=== PATIENT | female | born 1985 | race Caucasian/White ===

== ENCOUNTER 2018-02-08 09:57 | Day surgery (SDC) | payer MEDICARE, MEDICAID, SELFPAY ==
[2018-02-08 10:17] VITALS: BP 106/64; PULSE 84; RESP 20; TEMP 36.4; O2SAT 100; BMI 32.3
--- NOTE | 2018-02-08 12:06 | PCM.DC ---
You will use the following diet at home:: No restrictions Your food should be the consistency of: Regular Discharge Activity: Return to Normal Activity Call your doctor if you observe: Using more than one pad per hour, Uncontrolled pain Allergies/Adverse Reactions: Allergies No Known Allergies Allergy (Verified 02/05/18 12:02) Medications to take at Discharge Carbamazepine [Carbamazepine Xr] 400 mg PO BID 11/18/14 Gabapentin [Neurontin] 400 mg PO BIDCM 11/18/14 Lorazepam [Ativan] 1 mg PO BID 11/18/14 MedroxyPROGESTERone [Depo-Provera] 150 mg IM .[id number] 11/18/14 Loratadine [Allergy Relief] 10 mg PO DAILY 02/05/18 Lorazepam [Ativan] 0.5 mg PO 1600 02/05/18 Primary Care Physician: Jun Keane MD [Primary Care Provider] -
--- NOTE | 2018-02-08 12:07 | PCM.OP.BLANK ---
Operative Report Date of Procedure: 02/08/18 surgeon: dr naina yepez assistant public defender: nba Christianson MS3 Pre op diagnosis: dysmenorrhea, severe mental retardation Post op diagnosis: same procedure performed: IUD insertion, Exam under anesthesia, Pap Complications: none anesthesia: inhaled anesthesia, LMA EBL: minimal implantable devices: IUD- MIRENA Operative note: After consent was obtained by the legal guardian as the patient has severe mental impairment. Patient is unable to communicate verbally. She was brought to the operating room she was given inhaled anesthetic to relaxer she was then transferred to the operating room table. She was placed in supine position. [facility]aced [facility]. Exam Under anesthesia revealed an anteverted uterus approximately 7 weeks size. No adnexal masses. Carr retractor was placed in the posterior fornix vagina. At this time the tenaculum was used to grasp anterior lip the cervix.Cervix appeared to be normal. Pap smear was collected. Betadine used to clean cervix and vagina. Uterus was sounded to 7 cm. The Mirena IUD was then placed without difficulty. The IUD strings were cut to approximately 1.5 cm in the cervical loss. Tenaculum was removed good hemostasis was appreciated. Retractor was removed. Vaginal sweep was performed was negative. We will follow-up as needed in the office. pt transferred to PACU in stable condition.
--- NOTE | 2018-02-08 12:13 | OP.PCM_ITS ---
Operative Report Date of Procedure: 02/08/18 surgeon: dr naina yepez grants assistant: nba Christianson MS3 Pre op diagnosis: dysmenorrhea, severe mental retardation Post op diagnosis: same procedure performed: IUD insertion, Exam under anesthesia, Pap Complications: none anesthesia: inhaled anesthesia, LMA EBL: minimal implantable devices: IUD- MIRENA Operative note: After consent was obtained by the legal guardian as the patient has severe mental impairment. Patient is unable to communicate verbally. She was brought to the operating room she was given inhaled anesthetic to relaxer she was then transferred to the operating room table. She was placed in supine position. [facility]aced in [facility] stirrups. Exam Under anesthesia revealed an anteverted uterus approximately 7 weeks size. No adnexal masses. Carr retractor was placed in the posterior fornix vagina. At this time the tenaculum was used to grasp anterior lip the cervix.Cervix appeared to be normal. Pap smear was collected. Betadine used to clean cervix and vagina. Uterus was sounded to 7 cm. The Mirena IUD was then placed without difficulty. The IUD strings were cut to approximately 1.5 cm in the cervical loss. Tenaculum was removed good hemostasis was appreciated. Retractor was removed. Vaginal sweep was performed was negative. We will follow-up as needed in the office. pt transferred to PACU in stable condition.
[2018-02-08 12:23] VITALS: BP 106/64; BP 136/80; PULSE 88; RESP 16; TEMP 36.4; O2SAT 96
[2018-02-08 12:30] VITALS: BP 106/64; BP 135/88; PULSE 93; RESP 16; O2SAT 96
[2018-02-08 12:41] VITALS: BP 106/64; BP 135/79; PULSE 92; RESP 16; TEMP 36.4; O2SAT 96
[2018-02-08 13:00] VITALS: BP 106/64
== END 2018-02-08 13:14 | disposition home or self-care (01) ==
LOC: SDC 09:58 → AC 10:01
PROVIDERS: Family Provider Family Medicine; PCP Family Medicine; Visit Provider Obstetrics & Gynecology
PROC: (CPT 58120; principal; 2018-02-08 11:15)
DX: N94.6 Dysmenorrhea, unspecified (principal); F72 Severe intellectual disabilities; G40.909 Epilepsy, unspecified, not intractable, without status epilepticus; Z79.899 Other long term (current) drug therapy
CPT/HCPCS: 00940; 57410; 58300; J7120

== ENCOUNTER 2019-11-17 06:39 | Day surgery (SDC) | payer MEDICARE, MEDICAID, SELFPAY ==
--- NOTE | 2019-11-14 11:46 | HP.PCM_ITS ---
History and Physical Date of Admission: 11/14/19 Emily Valentin Physician RESIDENTIAL CARPET INSTALLER H&P Signed Encounter Date: 10/24/2019 Expand All Collapse All Hide copied text Jamie for details Nerissa Diallo is a 34 year old female who presents for IUD check. Aides are unsure if IUD was accidentally removed- saw strings the other week but then have not seen them. Pt nonverbal and will not allow for exams. ? PAST MEDICAL HISTORY PAST MEDICAL HISTORY Diagnosis Date ? Esotropia, unspecified ? ? right eye ? Microcephalus (HCC) ? ? Other kyphoscoliosis and scoliosis ? ? Unqualified visual loss, both eyes ? ? 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 Unspecified epilepsy without mention of intractable epilepsy ? ? sees Dr. Euceda ? Unspecified intellectual disabilities ? ? profound - since ? PAST SURGICAL HISTORY PAST SURGICAL HISTORY Procedure Laterality Date ? MIRENA N/A 2015 ? FAMILY HISTORY FAMILY HISTORY Problem Relation Age of Onset ? other (unsure) Other ? ? SOCIAL HISTORY Social History ? Tobacco Use ? Smoking status: Never Smoker ? Smokeless tobacco: Never Used Substance Use Topics ? Alcohol use: No ? Drug use: No ? CURRENT MEDICATIONS Current Outpatient Medications Medication Sig ? loratadine (CLARITIN) 10 mg tablet Take 1 tablet by mouth once daily. ? ibuprofen (MOTRIN) 600 mg tablet Take 1 tablet by mouth every 4 hours as needed for Pain (up to 5 doses/ day (3000mg total)). ? carBAMazepine XR (TEGRETOL XR) 200 mg 12 hr tablet TAKE 2 TABLETS (400MG) BY MOUTH TWICE DAILY ? Diaper,Brief, Adult,Disposable (DEPEND UNDERWEAR FOR WOMEN LRG) misc Change 4 times a day as needed. ? gabapentin (NEURONTIN) 400 mg capsule Take 1 capsule by mouth twice daily. ? Wheel Chair gali Standard Light Manual wheelchair with seatbelt. . (M41.20) IDIOPATHIC SCOLIOSIS (primary encounter diagnosis) (G40.909) Epilepsy, unspecified, not intractable, without status epilepticus (HCC) (Q02) MICROCEPHALUS (R26.89) Impaired gait and mobility ? Skin protection seat cushion (e2622) Positioning wheelchair back cushion (e2613) ? Requires wheelchair for ambulating over 50 feet, and as needed for safety concerns when out of the home. ? LORazepam (ATIVAN) 1 mg tablet Take 1 tablet by mouth twice daily for 60 days. ? LORazepam (ATIVAN) 0.5 mg tab Take 1 tablet by mouth once daily for 60 days. At 5pm daily ? mometasone (ELOCON) 0.1 % cream Apply 1 application to affected area once daily. (Patient not taking: Reported on 10/24/2019 ) ? No current facility-administered medications for this visit. ? Allergies As of Date: 10/24/2019 (No Known Allergies) Fully Assessed 10/24/2019 ? ? REVIEW OF SYSTEMS Abdomen: no pain.. Expanded ROS: GENERAL: Negative for fever Allergies and current medication updated:Yes ? EXAM: BP 120/74 Wt 0 lb (0.0kg) ? GENERAL: female non verbal and uncooperative HEENT: Normocephalic and atraumatic DERMATOLOGY: Normal, without lesions and non-icteric NEURO: unable to assess EXTREMITIES: normal ? ASSESSMENT AND PLAN: Encounter Diagnosis ? ? ICD-10-CM ? 1. Surveillance of previously prescribed intrauterine contraceptive device Z30.431 ? ? 2. Discussed will perform EUA- with checking for IUD placement with ultrasound guidance if needed. If IUD was expelled Nexplanon will be placed. If IUD in place will not remove and procedure will be complete ? 3. Guardian to sign consent at later date. ? Emily Soliz MD ?
[2019-11-17] VITALS (7 sets, daily range): BP systolic 111–133; BP diastolic 48–82; PULSE 80–92; RESP 16–18; TEMP 36.5–36.6; O2SAT 93–96; BMI 33.0
[2019-11-17] MEDS: Lactated Ringers 1,000 ML 100 ML IV (07:24)
[2019-11-17 07:28] LABS: Internal QC Validated? YES +Cl - CLEAR BKGD; Pregnancy, Serum, hCG Quali. NEGATIVE Negative
[2019-11-17] MEDS: Etonogestrel 68 MG IMPLANT SQ (08:38)
--- NOTE | 2019-11-17 09:02 | DCINST_ITS ---
You will use the following diet at home:: No restrictions Your food should be the consistency of: Regular Discharge Activity: Return to Normal Activity Additional Dressing/Incision Instructions:: remove large outer dressing after 24 hours. small dressing can stay on for 72hrs. Brusing can be normal. Allergies/Adverse Reactions: Allergies No Known Allergies Allergy (Verified 11/17/19 07:00) Medications to take at Discharge Carbamazepine [Carbamazepine Xr] 400 mg PO BID 11/18/14 Gabapentin [Neurontin] 400 mg PO BIDCM 11/18/14 Lorazepam [Ativan] 1 mg PO BID 11/18/14 Loratadine [Allergy Relief] 10 mg PO DAILY 02/05/18 Lorazepam [Ativan] 0.5 mg PO 1600 02/05/18 Primary Care Physician: Roland Johnson MD [Primary Care Provider] - Test Results: Test results from this visit will be discussed in further detail at your follow- up appointment, if applicable. Please Follow Up With: Emily Soliz MD When: as needed. will need Nexplanon replaced in 3 yrs
--- NOTE | 2019-11-17 09:04 | OP.PCM_ITS ---
Report of Operation Date of Procedure: 11/17/19 Pre-Operative Diagnosis: IUD CHECK up , possible Nexplanon placement, severe mental disability Post-Operative Diagnosis: same, IUD not in placed, nexplanon placed Surgery/Procedure Performed:: EUA, Nexplanon placement Description of Surgical Findings:: IUD strings not visualized on exam, TV and TA ultrasound performed- no sign of IUD appreciated. Type of Anesthesia:: MAC Special Medications: marcaine Specimen's removed: none Drains: none Estimated Blood Loss (mL): none Description of Procedure: Name under anesthesia was performed. IUD strings were not visualized at the cervical Os. Uterus mobile. Attempted transvaginal and transabdominal ultrasound were performed difficulty with the machine however there was no evidence of a retained IUD. Decision at this time was to place the Nexplanon implant. The patient's right arm was prepped with Betadine Marcaine was injected and the Nexplanon was placed without difficulty. Sterile dressing was applied and pressure dressing applied. Procedure was deemed complete successful at this time. Patient transferred back to the recovery room in stable condition. Discussed with the childcare attendant and [facility] the [facility] that the patient will need the Nexplanon replaced in 3 years. Discussed that abnormal uterine bleeding can be a normal side effect of the Nexplanon. Grafts/Implants Used: nexplanon - Complications none - Admit VTE Documentation VTE Pharm Prophylaxis ordered?: No
== END 2019-11-17 09:35 | disposition home or self-care (01) ==
LOC: SDC 06:41 → AC 06:44
PROVIDERS: Anesthesiology; Family Provider Family Medicine; PCP Family Medicine; Referring Provider Obstetrics & Gynecology; Visit Provider Obstetrics & Gynecology
PROC: (CPT 58120; principal; 2019-11-17 08:10)
DX: T83.32XA Displacement of intrauterine contraceptive device, initial encounter (principal); Z30.8 Encounter for other contraceptive management; Z30.431 Encounter for routine checking of intrauterine contraceptive device; X58.XXXA Exposure to other specified factors, initial encounter; Y93.9 Activity, unspecified; Y92.9 Unspecified place or not applicable; Y99.9 Unspecified external cause status; G40.909 Epilepsy, unspecified, not intractable, without status epilepticus; H54.3 Unqualified visual loss, both eyes; H47.611 Cortical blindness, right side of brain; H50.00 Unspecified esotropia; Q02 Microcephaly; F79 Unspecified intellectual disabilities; F41.9 Anxiety disorder, unspecified; Z79.899 Other long term (current) drug therapy
CPT/HCPCS: 11981; 57410; 84703; J7120; J2405

== ENCOUNTER 2021-09-09 17:29 | Emergency (ER) | payer MEDICARE, MEDICAID, SELFPAY ==
[2021-09-09 17:30] VITALS: TEMP 36.6; BMI 32.7
[2021-09-09] MEDS: Ziprasidone IM 20 MG/ML VIAL IM (17:39)
--- NOTE | 2021-09-09 17:50 | CM.ED ---
SOCIAL WORK Referral Source: Dr. Abreu Reason for Consult: Discharge planning/MH evaluation Patient presents by regional sales representative from [facility] on [address] Worker states patient with increased aggression and combative behavior. Patient with profound MR, impulse control disorder, seizure disorder, scoliosis, blindness. Worker reports patient has been agitated since 3am and nothing they have done has helped. Patient is non verbal. Patient has guardian, Margarita Manning [phone]. Work up to be completed. Joon Jack, EMPLOYEE RELATIONS REPRESENTATIVE, HOT MILL OBSERVER
[2021-09-09] MEDS: LORazepam 2 MG/ML Syringe IM (18:20)
--- NOTE | 2021-09-09 18:29 | ED.RN ---
PT REMAINS AGITATED. SECOND DOSE OF MEDICATION GIVEN. PT REMAINS SITTING UP. UNABLE TO DO VITAL SIGNS AT THIS TIME. ATTEMPTING TO PLAY MUSIC
[2021-09-09 18:40] VITALS: PULSE 96; RESP 16; O2SAT 96
--- NOTE | 2021-09-09 18:50 | EX.ED.VIS.PS ---
HPI HPI - Psych History of Present Illness Chief Complaint: Mental Health Informant: other Onset/Context/Timing Onset: Today Context: Gradual Onset Timing: Continuous Associated Symptoms Associated Symptoms - Psych: Positive for Agitated, Angry, Hostile and Threatening Narrative Narrative: Patient presents with agitation and combative behavior that became worse today. Caregiver states it has been getting progressively worse throughout the day. Caregiver reports the patient has had similar episodes in the past. Patient does not answer questions and is a poor historian. Patient has been yelling since she arrived in the emergency department. Caregiver states that they removed things from her room since she lives with 4 other people in her room. Caregiver states she has been throwing things and they are concerned about the safety of the other people in the half-way. [facility] Medical History Blind Profound mental handicap Seizures Home Medications carbamazepine 400 mg PO BID 11/18/14 [History Last Taken Unknown] gabapentin 400 mg PO BIDCM 11/18/14 [History Last Taken Unknown] lorazepam 1 mg PO BID 11/18/14 [History Last Taken Unknown] loratadine [Allergy Relief] 10 mg PO DAILY 02/05/18 [History Last Taken Unknown] lorazepam 0.5 mg PO 1600 02/05/18 [History Last Taken Unknown] Allergy/AdvReac Type Severity Reaction Status Date / Time No Known Allergies Allergy Verified 09/09/21 17:44 Family History unable to obtain Social History Smoking Status: Never smoker ROS ROS ED Review of Systems ROS Unobtainable: due to mental condition EXAM Physical Exam Const Vital Signs: 09/09/21 17:30 09/09/21 18:40 09/09/21 19:02 Temperature 97.9 F Temperature Source Temporal Pulse Rate 96 Respiratory Rate 16 Blood Pressure 131/95 H Blood Pressure Mean 107 Pulse Ox 96 Oxygen Delivery Method Room Air 09/09/21 20:22 Temperature Temperature Source Pulse Rate Respiratory Rate 18 Blood Pressure Blood Pressure Mean Pulse Ox Oxygen Delivery Method Positive well nourished and well developed General Appearance ED: well developed and irritable HEENT Reports moist mucous membranes Neck supple Resp normal respiratory effort and clear to auscultation bilaterally Cardio Rate: regular rate Rhythm: regular rhythm GI non-tender Palpation: soft Neuro CN's II-XII intact bilaterally and no sensory deficits noted Sensorium / Orientation: alert Motor Exam: strength 5/5 throughout and muscle tone normal throughout Psych Attitude: agitated, aggressive and hostile Activity / Motor Behavior: restless Mood & Affect: irritable and hostile affect MDM MDM MDM Narrative Medical decision making narrative: Patient was given a dose of Geodon here. Patient was still slightly agitated after this. Patient was given a dose of Ativan here. CBC was within normal limits. Basic metabolic profile was normal. Serum alcohol level was negative. Carbamazepine level was therapeutic at 10.6. Urinalysis does not show any evidence of urinary tract infection. Serum hCG was negative. Patient is resting comfortably on reevaluation. Patient will be discharged back to the half-way. Caregiver understands and is agreeable with the plan. All questions were answered. Lab Data Labs: Laboratory Results - last 24 hr 09/09/21 09/09/21 09/09/21 19:10 19:10 19:10 WBC 10.4 RBC 4.02 L Hgb 12.9 Hct 38.0 MCV 94.5 MCH 32.1 H MCHC 33.9 RDW Std Deviation 40.5 RDW Coeff of Sotero 11.8 Plt Count 264 MPV 10.3 Immature Gran % (Auto) 0.400 Neut % (Auto) 60.1 Lymph % (Auto) 30.8 [place] % (Auto) 6.0 Eos % (Auto) 2.4 Baso % (Auto) 0.3 Absolute Neuts (auto) 6.2 Absolute Lymphs (auto) 3.20 Nucleated RBC % 0 Sodium 140 Potassium 3.7 Chloride 108 H Carbon Dioxide 27.0 Anion Gap 5 BUN 21 H Creatinine 0.92 Estim Creat Clear Calc 77.53 Est GFR (MDRD) Af Amer 90 Est GFR (MDRD) Non-Af 74 BUN/Creatinine Ratio 22.8 H Glucose 95 Calcium 8.8 Serum , Qual Urine Color Urine Clarity Urine pH Ur Specific [place] Urine Protein Urine Glucose (UA) Urine Ketones Urine Occult Blood Urine Nitrite Urine Bilirubin Urine Urobilinogen Ur Leukocyte Esterase Urine RBC Urine WBC Ur Squamous Epith Cells Urine Bacteria Urine Mucus Carbamazepine Ethyl Alcohol 6.0 09/09/21 09/09/21 09/09/21 19:10 19:10 19:30 WBC RBC Hgb Hct MCV MCH MCHC RDW Std Deviation RDW Coeff of Sotero Plt Count MPV Immature Gran % (Auto) Neut % (Auto) Lymph % (Auto) [place] % (Auto) Eos % (Auto) Baso % (Auto) Absolute Neuts (auto) Absolute Lymphs (auto) Nucleated RBC % Sodium Potassium Chloride Carbon Dioxide Anion Gap BUN Creatinine Estim Creat Clear Calc Est GFR (MDRD) Af Amer Est GFR (MDRD) Non-Af BUN/Creatinine Ratio Glucose Calcium Serum , Qual NEGATIVE Urine Color Yellow Urine Clarity Sl. Cloudy Urine pH 6.5 Ur Specific [place] 1.015 Urine Protein Negative Urine Glucose (UA) Normal Urine Ketones Negative Urine Occult Blood Negative Urine Nitrite Positive H Urine Bilirubin Negative Urine Urobilinogen Normal Ur Leukocyte Esterase 25 H Urine RBC 0 SEEN Urine WBC 0-5 SEEN Ur Squamous Epith Cells 0-5 SEEN Urine Bacteria 3+ Urine Mucus 0 SEEN Carbamazepine 10.6 Ethyl Alcohol Discharge Plan Triage Chief Complaint: Mental Health ED Provider: Lex Abreu Dx/Rx/DC Orders Clinical Impression: Agitation Prescriptions: No Action gabapentin 400 MG capsule 400 mg PO BIDCM RF: 0 carbamazepine 200 MG tablet extended release 12 hr 400 mg PO BID RF: 0 lorazepam 1 MG tablet 1 mg PO BID RF: 0 lorazepam 0.5 MG tablet 0.5 mg PO 1600 RF: 0 loratadine [Allergy Relief (loratadine)] 10 MG tablet 10 mg PO DAILY RF: 0 Primary Care Provider: Roland Johnson Referrals: Roland Johnson MD [Primary Care Provider] - 3-5 Days Disposition Disposition: Home, Self Care
--- NOTE | 2021-09-09 18:58 | ED.RN ---
LEGAL GUARDIAN MATILDA ANN [phone]
[2021-09-09 19:02] VITALS: BP 131/95
--- NOTE | 2021-09-09 19:03 | CM.ED ---
SOCIAL WORK Call to patient's guardian, Margarita Manning. Per Margarita, does not believe patient will require inpatient psych. Believes patient would benefit from follow up with PCP. This worker reviewed emergency packet brought in by worker from [facility]. It appears plan of care has not been updated since 2017. Per the plan of care, patient was to have a Haldol protocol for behaviors that have been shown in ER. Margarita states has been patient's guardian for 1 year and this is the first time she has needed to come to hospital. Margarita reports has had Zoom meetings with [facility] and will look into getting plan of care updated. Margarita states, I don't know why they were pushing for a psych evaluation? Informed patient has been medicated with Geodon and Ativan at this time and awaiting medical clearance. Discussed the above with Dr. Abreu. Still awaiting medical clearance at this time. Will follow. Joon Jack, CREDIT REVIEW MANAGER, WOOD FINISHER
[2021-09-09 19:20] LABS: Absolute Neutrophil Count 6.2 X10^3/uL (2.0-7.7); Basophil# 0.03 X10^3/uL; Basophil% 0.3 % (0-1); Eosinophil# 0.25 X10^3/uL; Eosinophils% 2.4 % (0-5); Hemoglobin 12.9 g/dL (12.0-15.0); Lymphocyte % 30.8 % (19-41); Mean Corp Hgb Conc 33.9 g/dL (32-36); Mean Corpuscular Hgb 32.1 pg (27.0-32.0); Mean Corpuscular Volume 94.5 fL (81-99); Mean Platelet Vol. 10.3 fl (6.2-12.0); Monocyte# 0.62 X10^3/uL; NRBC Flagged by Analyzer 0 % (0-5); Neutrophil # 6.24 X10^3/uL (2.7-7.7); Neutrophil % 60.1 % (47-70); Platelet Count 264 K/mm3 (150-450); RBC Distribution Width CV 11.8 % (11.6-14.6); RBC Distribution Width SD 40.5 fl (35.1-43.9); Red Blood Count 4.02 M/mm3 (4.2-5.4); White Blood Count 10.4 K/mm3 (4.4-11.0)
[2021-09-09 19:29] LABS: Internal QC Validated? YES +Cl - CLEAR BKGD; Pregnancy, Serum, hCG Quali. NEGATIVE Negative
[2021-09-09 19:33] LABS: Anion Gap 5 (5-15); BUN 21 mg/dL (7-18); BUN/Creat Ratio 22.8 RATIO (10-20); Calcium,Total 8.8 mg/dL (8.5-10.1); Chloride 108 mmol/L (98-107); Creatinine, Serum 0.92 mg/dL (0.55-1.02); EST Glomerular Filtration Rate 74 mL/min (>60); Est Glom Filt Rate - Afr Amer 90 mL/min (>60); Estimated Creatinine Clearance 77.53 ml/min; Glucose 95 mg/dL (74-106); Potassium 3.7 mmol/L (3.5-5.1); Sodium Level 140 mmol/L (136-145)
[2021-09-09 19:35] LABS: Mucous, Urine 0 SEEN /hpf (<or=2+); Red Blood Cells-Urine 0 SEEN /hpf (0-5)
[2021-09-09 19:47] LABS: Carbamazepine (Tegretol) 10.6 ug/mL (4.0-12.0)
[2021-09-09 19:56] LABS: Color, Urine Yellow (Yellow); Glucose, Dipstick Normal (Normal); Ketone-Dipstick Negative (Negative); Leukocyte Esterase-Dipstick 25 /ul (Negative); Nitrite-Dipstick Positive (Negative); Occult Blood-Urine Negative /ul (Negative); Protein-Dipstick Negative (Negative); Specific Gravity, Urine 1.015 (1.002-1.030); Urine Bilirubin Dipstick Negative (Negative); Urine Clarity Sl. Cloudy (Clear); Urine Urobilinogen Normal (Normal); Urine pH 6.5 (5.0 - 8.0)
[2021-09-09 20:06] LABS: Bacteria 3+ /hpf (None Seen); Squamous Epithelial Cells - UA 0-5 SEEN /hpf (5-10); White Blood Cells 0-5 SEEN /hpf (0-5)
[2021-09-09 20:22] VITALS: RESP 18
--- NOTE | 2021-09-09 20:30 | CM.ED ---
SOCIAL WORK Patient medically cleared and Dr. Abreu believes patient able to return [facility]. Call to patient's guardian. Guardian in agreement with return to prison and believes patient would benefit from PRN medication if agitation becomes increased again. This worker spoke with Carol-senior data warehouse architect and nurseGunjan through [facility]. Per both, unable to write for PRN medication and patient will need to follow up with PCP. Carol feels comfortable with patient returning to prison and states able to provide wheelchair transport for patient. Staff updated on the above. Plan: Return to [facility] Joon Jack MSW, HONE OPERATOR
[2021-09-09 21:23] VITALS: RESP 18
[2021-09-09 22:53] LABS: Amphetamine Urine VISTA NEGATIVE (<1000 ng/mL); Barbiturate Urine VISTA NEGATIVE (< 200 ng/mL); Benzodiazepine Urine VISTA NEGATIVE (< 200 ng/mL); Cocaine Urine VISTA NEGATIVE (< 300 ng/mL); Ecstacy Urine VISTA NEGATIVE (< 500 ng/mL); Methadone Urine VISTA NEGATIVE (< 300 ng/mL); PCP Urine VISTA NEGATIVE (< 25 ng/mL); THC Urine VISTA NEGATIVE (< 50 ng/mL); Vista UDS pH Range 6
== END 2021-09-09 21:37 | disposition home or self-care (01) ==
PROVIDERS: Emergency Provider Emergency Medicine; PCP Family Medicine
DX: R45.1 Restlessness and agitation (principal); R56.9 Unspecified convulsions; H54.7 Unspecified visual loss; Z79.899 Other long term (current) drug therapy
CPT/HCPCS: 80048; 80156; 80307; 81001; 82077; 84703; 85025; 87426; 96372; 99285; P9612; J3486

== ENCOUNTER 2023-01-16 12:06 | Observation (INO) | payer MEDICARE, MEDICAID, SELFPAY ==
--- NOTE | 2022-12-22 15:53 | HP.PCM_ITS ---
History and Physical Date of Admission: 01/16/23 HPI: The patient is a 37 year old female presenting for pre-operative visit. She is scheduled for [facility] bilateral salpingectomy, for dysmenorrhea, need for menstrual control due to hygeine issues w/ menstruation due to cognitive deficits. Procedure discussed along with risks, benefits and complications. Other alternatives discussed for management. Consent form signed? Yes. ++HIstory and ROS obtained from caregiver and chart due to patient inability to answer medical questions ? PAST MEDICAL HISTORY PAST MEDICAL HISTORY Diagnosis Date ? Esotropia, unspecified ? ? right eye ? Microcephalus (HCC) ? ? Other kyphoscoliosis and scoliosis ? ? Unqualified visual loss, both eyes ? ? 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 Unspecified epilepsy without mention of intractable epilepsy ? ? sees Dr. Euceda ? Unspecified intellectual disabilities ? ? profound - since ? ? PAST SURGICAL HISTORY PAST SURGICAL HISTORY Procedure Laterality Date ? MIRENA N/A 2015 ? NEXPLANON INSERTION Left 11/17/2019 ? Inserted at [facility] under anesthia by Dr. Valentin ? ? ? CURRENT MEDICATIONS Current Outpatient Medications Medication Sig Dispense Refill ? LORazepam (ATIVAN) 1 mg tablet Take 1 tablet by mouth twice daily for 60 days. Gets the 1 mg twice daily at 8am and 8pm. Gets 0.5mg at 4pm. 60 tablet 1 ? acetaminophen (TYLENOL EXTRA STRENGTH) 500 mg tablet Take 1 tablet by mouth twice daily. 60 tablet 11 ? naproxen (NAPROSYN) 500 mg tablet Take 1 tablet by mouth twice daily. 60 tablet 5 ? loratadine (CLARITIN) 10 mg tablet Take 1 tablet by mouth once daily. 30 tablet 5 ? polyethylene glycol 3350 (MIRALAX) 17 gram/dose powder Take 17 g by mouth once daily. 510 g 11 ? gabapentin (NEURONTIN) 400 mg capsule Take 1 capsule by mouth three times daily for 90 days. 90 capsule 2 ? carBAMazepine XR (TEGRETOL XR) 200 mg 12 hr tablet TAKE 2 TABLETS (400MG) BY MOUTH TWICE DAILY 120 tablet 0 ? etonogestrel (NEXPLANON SDRM) by SUBDERMAL route. ? ? ? Wheel Chair gali Standard Light Manual wheelchair with seatbelt. . (M41.20) IDIOPATHIC SCOLIOSIS (primary encounter diagnosis) (G40.909) Epilepsy, unspecified, not intractable, without status epilepticus (HCC) (Q02) MICROCEPHALUS (R26.89) Impaired gait and mobility ? Skin protection seat cushion (e2622) Positioning wheelchair back cushion (e2613) ? Requires wheelchair for ambulating over 50 feet, and as needed for safety concerns when out of the home. 1 Device 0 ? Diaper,Brief, Adult,Disposable (DEPEND UNDERWEAR FOR WOMEN LRG) misc Change 4 times a day as needed. 120 Each 2 ? No current facility-administered medications for this visit. ? ? ALLERGIES: Patient has no known allergies. ? PERSONAL HISTORY: SOCIAL HISTORY Social History ? Tobacco Use ? Smoking status: Never ? Smokeless tobacco: Never Substance Use Topics ? Alcohol use: No ? Drug use: No ? FAMILY HISTORY: FAMILY HISTORY FAMILY HISTORY Problem Relation Age of Onset ? other (unsure) Other ? ? ? REVIEW OF SYMPTOMS: GENERAL: denies fevers or chills ENDOCRINOLOGY: has not been on steroids Cardiology : denies palpitations or chest pain Respiratory: denies SOB or cough Hematology: denies history of prolonged bleeding or easy bruising or VTE Allergy: Denies history of personal or family history of allergy to anesthesia ? PHYSICAL EXAMINATION: ? VITALS: Last menstrual period 03/04/2011. ? GENERAL: The patient is well nourished, well hydrated in no acute distress. NECK: Supple. No lynphadenopathy, normal thyroid, no thyromegaly. LUNGS: Clear to auscultation bilaterally. no wheezes, rhonchi or rales HEART: Regular rate and rhythm, Normal heart sounds, and No murmurs or gallops ? IMPRESSION: Dysmenorrhea, need to control menses and for contraception ? PLAN: The risks/benefits/alternatives and personal involved for the planned TLH with bilateral salpingectomy adn nexplanon removal were reviewed with the patient. Her questions were answered to her satisfaction and she desires to proceed. Consent was signed. I reviewed with her postop instructions and expectations. ? ? I have reviewed and updated past medical and surgical history, medications and allergies Assessment & Plan Assessment/Plan (1) Dysmenorrhea: (2) Nexplanon removal:
[2023-01-09 16:41] LABS: Hematocrit 38.1 % (37-47); Hemoglobin 12.7 g/dL (12.0-15.0); Mean Corp Hgb Conc 33.3 g/dL (32-36); Mean Corpuscular Hgb 32.2 pg (27.0-32.0); Mean Corpuscular Volume 96.5 fL (81-99); Mean Platelet Vol. 11.4 fl (6.2-12.0); Platelet Count 299 K/mm3 (150-450); RBC Distribution Width CV 11.7 % (11.6-14.6); Red Blood Count 3.95 M/mm3 (4.2-5.4); White Blood Count 10.2 K/mm3 (4.4-11.0)
[2023-01-09 16:48] LABS: Partial Thromboplast Time 27.1 Seconds (24.1-36.2)
[2023-01-16] VITALS (12 sets, daily range): BP systolic 99–148; BP diastolic 59–94; PULSE 68–99; RESP 16–18; TEMP 36.5–37.3; O2SAT 16–100; BMI 24.7
--- NOTE | 2023-01-16 07:30 | HYST_PTH ---
PATIENT: MINH BAEZA LOC: [facility] U#:[id number] AGE/SX: 37/F ROOM: [facility] RE01/16/[address]: Dr. Kadie Preston MD : [id number] BED: 1 DIS: 01/17/2023 SPEC #: [id number] RECD: 01/16/23 11:07 STATUS: MISAEL MOHAN #: [id number] GARIMA: 01/16/23 07:[address]: Kadie Preston DEPT: SURGICAL PATHOLOGY RECD BY: Monika Edwards ENTERED: 01/16/23 11:48 SP TYPE: HYSTERECT OTHR DR: Dr. Roland Johnson MD Tissues: Uterus, NOS Procedures: Surgery Specimen Level V HEADER OPERATION: Total laparoscopic hysterectomy, bilateral salpingectomy PRE-OP DIAGNOSIS: Dysmenorrhea, Nexplanon removal TISSUE SUBMITTED: Uterus, cervix, fallopian tubes MICROSCOPIC DIAGNOSIS Uterus, cervix, bilateral fallopian tubes, hysterectomy and bilateral salpingectomy: Cervix ? acute and chronic cervicitis. Endometrium ? consistent with exogenous hormone effect. Myometrium - no pathologic diagnosis. Bilateral fallopian tubes - no pathologic diagnosis. See comment. SJ:rachele 01/19/2023 COMMENT Well positioned intrauterine device is noted in the endometrial cavity. MICROSCOPIC DESCRIPTION Slides are reviewed. GROSS DESCRIPTION Received in fixative is one container labeled with the patient's name and designated uterus, fallopian tubes, cervix. The specimen consists of a hysterectomy specimen consisting of uterus with cervix and detached bilateral fallopian tubes. The uterus with cervix weighs 35 gm and measures 6.5 x 4.5 x 2.0 cm. The serosal surface is cuellar, glistening. The ectocervical mucosa is unremarkable. The external os is oval in contour. The endocervical canal measures 2.0 cm in length and the endocervical mucosa is unremarkable. The triangular endometrial cavity measures 3.5 cm in length and 2.0 cm in width. The endometrial cavity contains a well positioned T-shaped intrauterine device. The horizontal arm of ?T? measures 3.2 cm in length and vertical arm measures 3 cm in length. A small suture is also present attached at the bottom of the ?T? measuring 1.0 cm in length. The endometrium is cuellar, glistening without any mass lesion and measures 0.1 cm in thickness. Sections of the uterine wall do not reveal any mass lesion and measures up to 1.5 cm in thickness. The fallopian tubes are not identified as right or left and each measures 5.5 cm in length and 0.5 cm in diameter. The fimbrial ends are identified. Sections reveal unremarkable cut surfaces. Demand Planner sections are submitted in eight cassettes as follows: 1?- anterior cervix, 2 - posterior cervix, 3 & 4 - anterior uterine wall, 5 & 6 - posterior uterine wall, 7 - one fallopian tube, 8 - second fallopian tube. / JUANY:rachele 01/16/2023 TC:5 CPT: 03257
[2023-01-16] MEDS: Lactated Ringers 1,000 ML 15 ML IV ×2 (07:45→09:46)
[2023-01-16] MEDS: Cefotetan 2 GM in 0.9% NS 100 ML IV (07:54)
[2023-01-16] MEDS: Bupivacaine 0.25% 30 ML Vial (08:08)
--- NOTE | 2023-01-16 09:43 | PCM.OPRPT ---
Problems Associated Problem List Diagnoses (1) Nexplanon removal: (2) Dysmenorrhea: Report of Operation Date of Procedure: 01/16/23 Pre-Operative Diagnosis: dysmenorrhea, nexplanon removal Post-Operative Diagnosis: same Surgery/Procedure Performed:: TLH, bilateral salpingectomy, cystoscopy, nexplanon removal right arm Description of Surgical Findings:: normal cervix, vagina, uterus and tubes Surgeon: Kadie Preston metal lather: Emily Soliz metal lather: Kala Moctezuma [facility] Type of Anesthesia: General Anesthesiologist: Mayo Perez Special Medications: none Specimen's removed: uterus, cervix, bilateral fallopian tubes Drains: keller Estimated Blood Loss (mL): 50 Fluids Replaced: 1400 Description of Procedure: The patient was taken to the operating room where she was prepped and draped in the dorsal lithotomy position. Her arms were tucked to the side and padded and her legs were placed in the yellowfin stirrups. Before the patient was tucked and secured for surgery, her right arm was held out and some Betadine was used to clean the area over the Nexplanon. Dr. Valentin then used a scalpel to make a small incision through previous scar where the Nexplanon had been inserted and popped the Nexplanon up to the incision and removed a hemostat. A Band-Aid was placed over the area and some Coban around it. Patient's arms were then wrapped in foam pads and secured against her sides. Care was taken to ensure that she was placed in a neurologically safe and neutral position. A weighted speculum was placed in the vagina and the anterior lip of the cervix was grasped with a single-tooth tenaculum. The cervix sounded to 6 centimeters. A 2-0 Vicryl suture was secured to the cervix at 12:00.. The uterine dryer and washer mechanic 2.5 cm was placed into the cervix and the balloon inflated. The stay sutures were placed through the cup and secured down to the cervix. Once the dryer and washer mechanic was secured to the cervix the Keller catheter was placed to straight drain. Attention was turned to the abdominal portion of the case. Before skin incisions were made they were infiltrated with 0.25% Marcaine solution for local anesthetic. A 5 mm intraumbilical incision was made and while tenting the anterior abdominal wall up with towel clamps a 5 mm blade less trocar and sleeve were advanced with the Visiport into the peritoneal cavity. Peritoneal placement was confirmed with the laparoscope the pneumoperitoneum was created, and the underlying abdominal contents were intact. The patient was placed in Trendelenburg and the above findings were noted. Right and left lateral 5 mm trochars were placed under direct visualization without difficulty. The antimesenteric portion of the tube was clamped sealed and transected serially on both sides with the LigaSure device. The round ligaments were clamped sealed and transected and a window was made in the peritoneum. The utero-ovarian ligaments were then clamped sealed and transected with the LigaSure device and the pedicles were hemostatic The bladder flap was dissected down with the LigaSure device and blunt dissection and the uterine arteries were then skeletonized. The uterine arteries were clamped sealed and transected on both sides with the LigaSure device. Then along the cardinal ligament uterine arteries adjacent to the cervix were clamped sealed and transected with the LigaSure device to move them away from the vaginal cuff angle. At this point the pedicles were all examined and found to be hemostatic. The bladder flap was rechecked and found to be adequately down. The monopolar hook cautery was then used to enter the anterior vagina. The vaginal manipulator cup was noted in the vaginal colpotomy incision was made circumferentially around the cup. When the 3 and 9:00 positions of the cervicovaginal junction were reached these were clamped sealed and transected with the LigaSure device to secure any small remaining vessels. At this point the pedicles were hemostatic from above and attention was turned to the vaginal portion of the case again. The uterus was brought intact out through the vaginal colpotomy incision along with the tubes Inspection of the pedicles from below was performed to the best of our ability but vaginal access was limited. Vaginal angle sutures were placed on both sides with 0 Vicryl sutures and care was taken to ensure that the uterosacral ligament was secured into this stitch. The remainder the vagina was then closed horizontally with interrupted 0 Vicryl sutures. The cuff was hemostatic vaginally. There was a small laceration from a retractor along both vaginal sidewalls. These were oversewn with 0 Vicryl sutures and were hemostatic but still oozing slightly. The Keller catheter was removed and a cystoscopy was performed. The bladder appeared normal and was intact. Both ureteral orifices were noted and both ureteral jets were seen. The cystoscope was removed and the Keller catheter was placed back to straight drain. A sponge stick was placed in the vagina to help place traction against the vaginal cuff and the pneumoperitoneum was re-created. The suction molded candles wicker was used to remove any blood and clots from the peritoneal cavity. The pedicles were reexamined and found to be hemostatic. There was some small amount of oozing from the right side of the vaginal cuff. Some Caron was placed over it but there is still small amount of oozing. Fibrillar was placed over the area and some pressure was held and then the area was hemostatic. Some Caron was placed over the remainder of the vaginal cuff and pedicles. No active bleeding was noted through the Caron. The right and left lateral ports were taken out and the sites were hemostatic. The pneumoperitoneum was released and even under low pressure there was no bleeding of any of the pedicles are vaginal cuff. The umbilical port was removed. The umbilical skin incisions were closed with Monocryl suture and skin glue by Dr. Valentin. The vaginal instruments were removed by me and a vaginal sweep was completed by me. Some Kerlix was used to pack the vaginal cuff because of the oozing along the vaginal sutures. No hematomas were noted. The Keller catheter was replaced. Dr. Valentin provided camera guidance, tissue manipulation and help perform her site of the surgery during the laparoscopy. The surgery was performed by me with assistance other than the portions dictated as above. There were no qualified residents available for this procedure. All sponge lap and needle counts were correct and the patient was transferred to the recovery room in stable condition. Grafts/Implants Used: none Procedure Start Time: 08:09 Procedure Stop Time: 09:48 Complications none Admit VTE Documentation VTE Present on Admission: No VTE Mechan Device Prophylaxis: SCD's VTE Pharm Prophylaxis ordered?: No Reason prophylaxis not ordered:: Procedure Not Indicated
[2023-01-16] MEDS: Acetaminophen 500 MG Tablet 1000 MG PO ×3 (12:20→23:43)
[2023-01-16] MEDS: 0.9% Saline Lock 10 ML Syringe IV ×2 (13:52→16:13)
[2023-01-16] MEDS: Polyethylene Glycol 3350 17 GM PACKET PO (13:52)
[2023-01-16] MEDS: Ketorolac 30 MG/ML Syringe IV ×2 (13:52→21:09)
[2023-01-16] MEDS: Gabapentin 400 MG Capsule PO ×2 (13:52→21:09)
[2023-01-16] MEDS: proCHLORPERazine 10 MG/2 ML Vial IV (16:12)
[2023-01-16] MEDS: carBAMazepine 200 MG Tablet 400 MG PO (21:09)
[2023-01-17 03:50] VITALS: BP 105/60; PULSE 95; RESP 16; TEMP 37; O2SAT 96
[2023-01-17] MEDS: Ketorolac 30 MG/ML Syringe IV (04:29)
[2023-01-17] MEDS: Gabapentin 400 MG Capsule PO (04:29)
[2023-01-17] MEDS: Acetaminophen 500 MG Tablet 1000 MG PO (04:29)
[2023-01-17 06:52] LABS: Hematocrit 31.8 % (37-47); Hemoglobin 10.6 g/dL (12.0-15.0); Mean Corp Hgb Conc 33.3 g/dL (32-36); Mean Corpuscular Hgb 32.1 pg (27.0-32.0); Mean Corpuscular Volume 96.4 fL (81-99); Mean Platelet Vol. 11.5 fl (6.2-12.0); Platelet Count 319 K/mm3 (150-450); RBC Distribution Width CV 11.8 % (11.6-14.6); RBC Distribution Width SD 41.2 fl (35.1-43.9); White Blood Count 9.1 K/mm3 (4.4-11.0)
[2023-01-17] MEDS: Enoxaparin 40 MG/0.4 ML Syringe SC (08:42)
[2023-01-17] MEDS: carBAMazepine 200 MG Tablet 400 MG PO (08:42)
[2023-01-17] MEDS: Ensure Plus High Protein 120 ML LIQUID PO (08:52)
[2023-01-17 08:56] VITALS: BP 110/82; PULSE 87; RESP 16; TEMP 36.6; O2SAT 99
--- NOTE | 2023-01-17 09:12 | CASEMGMT ---
Addendum entered by Jennifer Diaz 01/17/23 10:56: Social Work Carol from the senior living called, they can take pt back today, and they will come pick her up. PABLO put her on the phone with the bedside RN for report. No further needs, pt back to senior living today. RICHIE Vela Addendum entered by Jennifer Diaz 01/17/23 10:44: Social Work Pt is now ready for discharge. PABLO called guardiselma Christine again, let her know pt is ready for discharge and SW is unable to reach anybody from the senior living. She is going to try to reach someone and have them call [facility]. RICHIE Vela Addendum entered by Jennifer Diaz 01/17/23 09:30: Social Work. There is an updated guardian form on the chart stating Nanci Manning is pt's guardian. However there is nobody here from the senior living in the room. PABLO called another number for Neisha that was on Carol's voicemail, but it is a wrong number.. SW called pt's guardian Nanci back to see if there is another number for the senior living for SW to call. She gave SW [phone]. This number is out of service. SW will wait to see if Carol calls back, otherwise will try the guardian again. RICHIE Vela Original Note: Social Work Pt is here from [facility]. PABLO reviewed chart, Guardian is Maria Ines Byers, . PABLO called, Patricia Manning answered and states she is now the pt's guardian, and plan is for pt to return to the senior living at discharge. She states someone should be in the room w/pt, SW will check when SW gets to the floow. PABLO called the number listed for the senior living, reached a voicemail for Carol Calderón, message left. PABLO will follow up in pt's room shortly. RICHIE Vela
--- NOTE | 2023-01-17 10:08 | PCM.PN.BLA ---
Progress Note Patient does not answer questions about pain or shortness of breath. Per staff overnight she slept off and on. Did not seem agitated. Does not seem painful. Tolerated liquid diet this morning. Physical Exam Narrative Awake, no acute distress. Sitting comfortably in the chair Skin warm dry and intact. Extremities no significant edema Abdomen soft, nondistended, mildly tender. Incisions are clean dry and intact. Vaginal packing was removed with some sanguinous drainage. No active bleeding from the vagina after it was removed. Heaton catheter removed. Assessment & Plan Assessment/Plan (1) History of hysterectomy: (2) Dysmenorrhea: PLAN: Plan Postoperative day #1 status post total laparoscopic hysterectomy. Patient is doing well. Mild anemia, somewhat dilutional and appropriate for blood loss during surgery. Patient is hemodynamically stable. Okay for discharge back to halfway today. Okay to DC IV. Pathology is pending.
--- NOTE | 2023-01-17 10:10 | DCINST_ITS ---
Discharge Instructions Diet Discharge Diet: No restrictions Activity Discharge Activity: May Shower Additional Activity Instructions:: Take 650 to 1000 mg of acetaminophen 3 times a day for the next 7 to 10 days regularly. Take naproxen as prescribed r egularly for the next 7 to 10 days. Use the oxycodone 5 mg twice a day, or 3 times a day if she seems to have breakthrough pain for the next 7 days. Dressing / Incision Call your doctor if your incision/area has: Sudden Increased Bleeding, Increased Pain/ Swelling, Foul Smelling Discharge and Swelling at the incision site Call your doctor if you observe: Fever of 101 or Higher and Using more than 1 pad per hour Cleanse incision/area with: Soap & Water (The incisions have skin glue, it can get wet in the shower. Leave the skin glue on until it falls off or for at leat 10 days) Follow Up Care Please Follow Up With: Kadie Preston MD When: 1-2 weeks in my office or as needed. [phone] Test Results: Test results from this visit will be discussed in further detail at your follow- up appointment, if applicable. Discharge Plan Admission Admit Date/Time: 01/16/23 12:06 Primary Reason for Your Visit: hysterectomy Attending Provider: Kadie Prestno Primary Care Provider: Roland Johnson Discharge Orders/Prescriptions Prescriptions: New oxycodone 5 mg tablet 5 mg PO Q8H PRN (Reason: severe pain) 7 Days Qty: 21 0RF Continued gabapentin 400 MG capsule 400 mg PO TID carbamazepine 200 MG tablet extended release 12 hr 400 mg PO BID lorazepam 1 MG tablet 1 mg PO BID lorazepam 0.5 MG tablet 0.5 mg PO 1600 loratadine [Allergy Relief (loratadine)] 10 MG tablet 10 mg PO DAILY trazodone 50 mg Tablet 50 mg PO QHS PRN (Reason: Sleep) polyethylene glycol 3350 [Miralax] 17 gram Powder In Packet 17 g PO DAILY acetaminophen 500 mg Tablet 500 mg PO BID naproxen 500 mg Tablet 500 mg PO BID Referrals / Follow Up: Roland Johnson MD [Primary Care Provider] - Disposition Disposition (needs filled in before D/C Order can be placed): Home, Self Care
--- NOTE | 2023-01-17 10:59 | NURSING ---
discharge inst given to armond. pt will be picked up by armond at 1200
== END 2023-01-17 11:49 | disposition home or self-care (01) ==
LOC: SDC 12:12 → MS3 12:12
PROVIDERS: Anesthesiology; Admitting Provider Obstetrics & Gynecology; PCP Family Medicine; Referring Provider Obstetrics & Gynecology; Visit Provider Obstetrics & Gynecology
PROC: 0UT94ZZ Resection of Uterus, Percutaneous Endoscopic Approach (ICD-10-PCS; CPT 58571; principal; 2023-01-16 07:10)
DX: N94.6 Dysmenorrhea, unspecified (principal); Q02 Microcephaly; G40.909 Epilepsy, unspecified, not intractable, without status epilepticus; Z30.46 Encounter for surveillance of implantable subdermal contraceptive; Z79.899 Other long term (current) drug therapy; M41.20 Other idiopathic scoliosis, site unspecified; F73 Profound intellectual disabilities; G25.81 Restless legs syndrome; R12 Heartburn; N32.9 Bladder disorder, unspecified; D64.9 Anemia, unspecified
CPT/HCPCS: 58571; 11982; 00840; 36415; 85027; 85730; 86850; 86900; 86901; 88307; 96372; 96374; 96375; 96376; 99221; J7120; A4216; G0378; J2405

== ENCOUNTER 2023-10-07 08:07 | Emergency (ER) | payer MEDICARE, MEDICAID, SELFPAY ==
[2023-10-07 08:09] VITALS: BP 94/76; RESP 22; TEMP 36.4; BMI 27.2
--- NOTE | 2023-10-07 08:45 | EX.ED.DYSGE1 ---
HPI <Dr. Preston Sanchez DO - Last Filed: 10/07/23 14:41> History of Present Illness Chief Complaint: Confusion Informant: SNF Narrative Narrative: 38-year-old female brought in by snf. Staff states that last night the patient had her new dose of medications which included Zyprexa and Ambien. She slept. This morning was very combative not directable. Caregiver that is with her states that in the past year and a half she has not seen her like this. Patient was very combative for EMS. She reportedly threw herself to the ground at the snf. No reported illnesses. There is a question of if the patient has thrush. No reported fevers. Patient threw herself on the ground but staff does not know of any injuries however they state that they have concerns for her hands elbows and feet and would like to have those x-rayed. [facility] <Dr. Preston Sanchez DO - Last Filed: 10/07/23 14:41> [facility] Medical History Acute diarrhea Bladder disease Blind [place] History of use of contraceptive intrauterine device (IUD) Impulse control disorder Kyphoscoliosis Non-smoker Profound mental handicap Restless legs Seizures Home Medications carbamazepine 200 mg tablet,extended release,12 hr 400 mg PO BID 11/18/14 [History Last Taken Unknown] gabapentin 400 mg capsule 400 mg PO TID 11/18/14 [History Last Taken Unknown] lorazepam 1 mg tablet 1 mg PO BID 11/18/14 [History Last Taken Unknown] loratadine 10 mg tablet (Allergy Relief (loratadine)) 10 mg PO DAILY 02/05/18 [History Last Taken Unknown] lorazepam 0.5 mg tablet 0.5 mg PO 1600 02/05/18 [History Last Taken Unknown] acetaminophen 500 mg tablet 500 mg PO BID 01/09/23 [History Last Taken Unknown] naproxen 500 mg tablet 500 mg PO BID 01/09/23 [History Last Taken Unknown] polyethylene glycol 3350 17 gram oral powder packet (Miralax) 17 g PO DAILY 01/09/23 [History Last Taken Unknown] trazodone 50 mg tablet 50 mg PO QHS PRN Sleep 01/09/23 [History Last Taken Unknown] oxycodone 5 mg tablet 5 mg PO Q8H PRN severe pain 7 days #21 TABLETS 01/17/23 [Rx Last Taken Unknown] Allergy/AdvReac Type Severity Reaction Status Date / Time No Known Allergies Allergy Verified 10/07/23 08:13 Surgical History History of hysterectomy History of surgery Social History Smoking Status: Never smoker ROS <Dr. Preston Sanchez DO - Last Filed: 10/07/23 14:41> ROS ED Review of Systems ROS Unobtainable: due to mental status EXAM <Dr. Preston Sanchez DO - Last Filed: 10/07/23 14:41> Physical Exam Narrative Exam Narrative: Patient minimally directable. She is swinging and hitting the bed. She becomes distracted with a coloring book only handed to her. Const Vital Signs: 10/07/23 08:09 10/07/23 08:19 10/07/23 10:08 Temperature 97.5 F L Temperature Source Temporal Respiratory Rate 22 H 16 Respiratory Effort Normal Non-Labored Respiratory Pattern Normal Blood Pressure 94/76 Blood Pressure Mean 82 Oxygen Delivery Method Room Air 10/07/23 12:00 10/07/23 15:11 Temperature Temperature Source Respiratory Rate 14 16 Respiratory Effort Respiratory Pattern Blood Pressure Blood Pressure Mean Oxygen Delivery Method Room Air Room Air Positive well nourished and well developed General Appearance ED: well developed HEENT Reports normocephalic, head/scalp atraumatic and moist mucous membranes HEENT Narrative: No intraoral evidence of thrush noted Eyes PERRL and EOMs intact bilaterally Neck no lymphadenopathy, supple and no JVD Resp normal respiratory effort and clear to auscultation bilaterally Cardio regular rate, regular rhythm and no murmurs GI normal to inspection, nondistended, normoactive bowel sounds and non-tender Palpation: soft Back/Spine no CVA tenderness and normal ROM Extremity normal to inspection General Extremety ED: Negative for edema General Extremity: Negative for edema Neuro Sensorium / Orientation: alert Motor Exam: strength 5/5 throughout Psych Psych Narrative: Patient is hitting her arms on the metal railings and more than once has attempted to hit staff and medics. Skin no rashes or lesions noted and no wounds <Rufus Owens MD - Last Filed: 10/07/23 15:37> Physical Exam Const Vital Signs: 10/07/23 08:09 10/07/23 08:19 10/07/23 10:08 Temperature 97.5 F L Temperature Source Temporal Respiratory Rate 22 H 16 Respiratory Effort Normal Non-Labored Respiratory Pattern Normal Blood Pressure 94/76 Blood Pressure Mean 82 Oxygen Delivery Method Room Air 10/07/23 12:00 10/07/23 15:11 Temperature Temperature Source Respiratory Rate 14 16 Respiratory Effort Respiratory Pattern Blood Pressure Blood Pressure Mean Oxygen Delivery Method Room Air Room Air MDM <Dr. Preston Sanchez DO - Last Filed: 10/07/23 14:41> [facility] Narrative Medical decision making narrative: Patient was potentially a threat to herself and to staff need to evaluate her. Patient received Geodon and Ativan which resulted in adequate sedation to achieve examination. I do not see any obvious oral thrush. White count 5.3 hemoglobin 11.9. BMP negative. Liver enzymes normal lipase normal. Urinalysis shows no overt infection. Tegretol level is within normal limits. My independent rotation of the chest x-ray is no acute process. My independent interpretation of the plain films of the bilateral hand elbow and feet is no obvious fractures. Patient remains hemodynamically stable. She is still sedated. At this point it appears that the patient's behavior is behavioral in nature. I do not see an obvious cause other than that at this time. Spoke with the patient's caregiver from the snf is with her as well as social work. Patient will be continue to observe. If she wakes from sedation and is still a threat to herself and others we will be working on potential placement. However social work will be discussing with the board of DD. If however she wakes and is otherwise cooperative and back at baseline we would entertain discharge back to the snf. History & Record Review Discussion w/independent historian: EMS personnel and Other (snf caregiver) Additional record(s) reviewed:: Prior outpatient record, Prior ED visit and Prior labs Lab Data Attestation: I reviewed the patient's lab results. Labs: Laboratory Results - last 24 hr 10/07/23 10:07 WBC 5.3 RBC 3.78 L Hgb 11.9 L Hct 36.7 L MCV 97.1 MCH 31.5 MCHC 32.4 RDW Std Deviation 42.5 RDW Coeff of Sotero 11.9 Plt Count 215 MPV 11.2 Immature Gran % (Auto) 0.400 Neut % (Auto) 59.1 Lymph % (Auto) 30.0 [place] % (Auto) 7.9 Eos % (Auto) 2.4 Baso % (Auto) 0.2 Absolute Neuts (auto) 3.2 Absolute Lymphs (auto) 1.60 Nucleated RBC % 0 Sodium 143 Potassium 4.0 Chloride 113 H Carbon Dioxide 26.0 Anion Gap 4 L BUN 18 Creatinine 0.61 Estim Creat Clear Calc 105.47 Est GFR (MDRD) Af Amer 143 Est GFR (MDRD) Non-Af 118 BUN/Creatinine Ratio 29.6 H Glucose 88 Calcium 8.3 L Total Bilirubin 0.40 Direct Bilirubin 0.08 AST 18 ALT 23 Alkaline Phosphatase 87 Total Protein 6.8 Albumin 3.7 Globulin 3.1 Lipase 47 Urine Color Yellow Urine Clarity Sl. Cloudy Urine pH 5.0 Ur Specific [place] 1.025 Urine Protein 15 H Urine Glucose (UA) Normal Urine Ketones Negative Urine Occult Blood 250 H Urine Nitrite Negative Urine Bilirubin 1 H Urine Urobilinogen Normal Ur Leukocyte Esterase Negative Urine RBC 5-10 SEEN Urine WBC 0 SEEN Ur Squamous Epith Cells 0-5 SEEN Urine Bacteria RARE Urine Mucus 1+ Carbamazepine 10.8 Radiography Diagnostic Testing: Clinical Impression(s) from Imaging Studies Chest X-Ray 10/07/23 10:10 IMPRESSION: No acute abnormality is seen. Electronically Signed: Sj Durant MD at 10:34 EST , Elbow X-Ray 10/07/23 11:00 IMPRESSION: Right Elbow: Normal x-ray examination of the right elbow. Left Elbow: Normal x-ray examination of the left elbow. Electronically Signed: Sj Durant MD at 11:29 EST , Foot X-Ray 10/07/23 11:00 IMPRESSION: Dorsal soft tissue swelling of both feet. Electronically Signed: Sj Durant MD at 11:28 EST , Hand X-Ray 10/07/23 11:00 IMPRESSION: Right Hand: Normal x-ray examination of the right hand. Left Hand: Normal x-ray examination of the left hand. Electronically Signed: Sj Durant MD at 11:30 EST , <Rufus Owens MD - Last Filed: 10/07/23 15:37> [facility] Lab Data Labs: Laboratory Results - last 24 hr 10/07/23 10:07 WBC 5.3 RBC 3.78 L Hgb 11.9 L Hct 36.7 L MCV 97.1 MCH 31.5 MCHC 32.4 RDW Std Deviation 42.5 RDW Coeff of Sotero 11.9 Plt Count 215 MPV 11.2 Immature Gran % (Auto) 0.400 Neut % (Auto) 59.1 Lymph % (Auto) 30.0 [place] % (Auto) 7.9 Eos % (Auto) 2.4 Baso % (Auto) 0.2 Absolute Neuts (auto) 3.2 Absolute Lymphs (auto) 1.60 Nucleated RBC % 0 Sodium 143 Potassium 4.0 Chloride 113 H Carbon Dioxide 26.0 Anion Gap 4 L BUN 18 Creatinine 0.61 Estim Creat Clear Calc 105.47 Est GFR (MDRD) Af Amer 143 Est GFR (MDRD) Non-Af 118 BUN/Creatinine Ratio 29.6 H Glucose 88 Calcium 8.3 L Total Bilirubin 0.40 Direct Bilirubin 0.08 AST 18 ALT 23 Alkaline Phosphatase 87 Total Protein 6.8 Albumin 3.7 Globulin 3.1 Lipase 47 Urine Color Yellow Urine Clarity Sl. Cloudy Urine pH 5.0 Ur Specific [place] 1.025 Urine Protein 15 H Urine Glucose (UA) Normal Urine Ketones Negative Urine Occult Blood 250 H Urine Nitrite Negative Urine Bilirubin 1 H Urine Urobilinogen Normal Ur Leukocyte Esterase Negative Urine RBC 5-10 SEEN Urine WBC 0 SEEN Ur Squamous Epith Cells 0-5 SEEN Urine Bacteria RARE Urine Mucus 1+ Carbamazepine 10.8 Radiography Diagnostic Testing: Clinical Impression(s) from Imaging Studies Chest X-Ray 10/07/23 10:10 IMPRESSION: No acute abnormality is seen. Electronically Signed: Sj Durant MD at 10:34 EST , Elbow X-Ray 10/07/23 11:00 IMPRESSION: Right Elbow: Normal x-ray examination of the right elbow. Left Elbow: Normal x-ray examination of the left elbow. Electronically Signed: Sj Durant MD at 11:29 EST Reading Location ID and State: [id number] / [place] , Service support , Foot X-Ray 10/07/23 11:00 IMPRESSION: Dorsal soft tissue swelling of both feet. Electronically Signed: Sj Durant MD at 11:28 EST Reading Location ID and State: [id number] / [place] , Service support , Hand X-Ray 10/07/23 11:00 IMPRESSION: Right Hand: Normal x-ray examination of the right hand. Left Hand: Normal x-ray examination of the left hand. Electronically Signed: Sj Durant MD at 11:30 EST , Treatment and Re-Evaluation :: Dr. Owens: Patient endorsed to me to make final disposition on this patient and reassess once she awoken from receiving medications for sedation because of aggressive behavior. Upon repeat examination, patient is awake, and at her baseline per the group contract analyst. She is comfortable with discharge. Return instructions were reviewed. Disposition is discharged in stable condition. Discharge Plan Triage Chief Complaint: Confusion Other Complaint: General Illness ED Provider: Preston Sanchez Dx/Rx/DC Orders Clinical Impression: Confusion, Combative behavior Instructions: ED ALOC, ED Confusion Prescriptions: No Action gabapentin 400 MG capsule 400 mg PO TID carbamazepine 200 MG tablet extended release 12 hr 400 mg PO BID lorazepam 1 MG tablet 1 mg PO BID lorazepam 0.5 MG tablet 0.5 mg PO 1600 loratadine [Allergy Relief (loratadine)] 10 MG tablet 10 mg PO DAILY trazodone 50 mg Tablet 50 mg PO QHS PRN (Reason: Sleep) polyethylene glycol 3350 [Miralax] 17 gram Powder In Packet 17 g PO DAILY acetaminophen 500 mg Tablet 500 mg PO BID naproxen 500 mg Tablet 500 mg PO BID oxycodone 5 mg tablet 5 mg PO Q8H PRN (Reason: severe pain) 7 Days Qty: 21 0RF Primary Care Provider: Roland Johnson Referrals: Roland Johnson MD [Primary Care Provider] - Disposition Disposition: Home, Self Care
[2023-10-07] MEDS: LORazepam 2 MG/ML Syringe IM (09:00)
[2023-10-07] MEDS: Ziprasidone IM 20 MG/ML VIAL IM (09:00)
[2023-10-07 10:08] VITALS: RESP 16
--- NOTE | 2023-10-07 10:10 | RAD_ITS ---
STUDY: X-RAY CHEST REASON FOR EXAM: Female, 38 years old. ams TECHNIQUE: Single AP portable view of the chest. COMPARISON: Comparison is made with prior study dated November 18, 2014. FINDINGS: The lungs are clear and expanded. There is no demonstrated pleural abnormality. Normal size heart. Normal mediastinum and telly. Normal visualized pulmonary arteries. Normal visualized aortic arch and descending thoracic aorta. There is a dextroscoliosis of the thoracic spine. Normal visualized ribs, clavicles, and shoulders. There is no demonstrated abnormality of the visualized soft tissue structures of the upper abdomen. RAD/Chest 1 View (Portable) IMPRESSION: No acute abnormality is seen. Electronically Signed: Sj Durant MD at 10:34 EST ,
[2023-10-07 10:12] LABS: White Blood Cells 0 SEEN /hpf (0-5)
[2023-10-07 10:17] LABS: Absolute Neutrophil Count 3.2 X10^3/uL (2.0-7.7); Basophil# 0.01 X10^3/uL; Basophil% 0.2 % (0-1); Eosinophil# 0.13 X10^3/uL; Eosinophils% 2.4 % (0-5); Hematocrit 36.7 % (37-47); Hemoglobin 11.9 g/dL (12.0-15.0); Mean Corp Hgb Conc 32.4 g/dL (32-36); Mean Corpuscular Hgb 31.5 pg (27.0-32.0); Mean Corpuscular Volume 97.1 fL (81-99); Mean Platelet Vol. 11.2 fl (6.2-12.0); Monocyte# 0.42 X10^3/uL; Monocyte% 7.9 % (0-10); NRBC Flagged by Analyzer 0 % (0-5); Neutrophil # 3.16 X10^3/uL (2.7-7.7); Neutrophil % 59.1 % (47-70); Platelet Count 215 K/mm3 (150-450); RBC Distribution Width CV 11.9 % (11.6-14.6); RBC Distribution Width SD 42.5 fl (35.1-43.9); Red Blood Count 3.78 M/mm3 (4.2-5.4); White Blood Count 5.3 K/mm3 (4.4-11.0)
--- NOTE | 2023-10-07 10:19 | ED.RN ---
this rn attempted cardiac exercise specialist and pt ripped it off.
[2023-10-07 10:24] LABS: Color, Urine Yellow (Yellow); Glucose, Dipstick Normal (Normal); Ketone-Dipstick Negative (Negative); Leukocyte Esterase-Dipstick Negative /ul (Negative); Nitrite-Dipstick Negative (Negative); Occult Blood-Urine 250 /ul (Negative); Protein-Dipstick 15 mg/dl (Negative); Specific Gravity, Urine 1.025 (1.002-1.030); Urine Clarity Sl. Cloudy (Clear); Urine Urobilinogen Normal (Normal)
[2023-10-07 10:29] LABS: Urine Bilirubin Dipstick 1 mg/dL (Negative)
[2023-10-07 10:30] LABS: Carbamazepine (Tegretol) 10.8 ug/mL (4.0-12.0)
[2023-10-07 10:32] LABS: Bacteria RARE /hpf (None Seen); Mucous, Urine 1+ /hpf (<or=2+); Red Blood Cells-Urine 5-10 SEEN /hpf (0-5); Squamous Epithelial Cells - UA 0-5 SEEN /hpf (5-10)
[2023-10-07 10:34] LABS: AST(SGOT) 18 U/L (15-37); Alanine Aminotransfer ALT/SGPT 23 U/L (13-56); Albumin, Serum 3.7 g/dL (3.2-5.0); Alkaline Phosphatase 87 U/L (45-117); Anion Gap 4 (5-15); BUN 18 mg/dL (7-18); BUN/Creat Ratio 29.6 RATIO (10-20); Bilirubin, Direct 0.08 mg/dL (0.00-0.30); Calcium,Total 8.3 mg/dL (8.5-10.1); Chloride 113 mmol/L (98-107); Creatinine, Serum 0.61 mg/dL (0.55-1.02); EST Glomerular Filtration Rate 118 mL/min (>60); Est Glom Filt Rate - Afr Amer 143 mL/min (>60); Estimated Creatinine Clearance 105.47 ml/min; Globulin 3.1 g/dL (2.2-4.2); Glucose 88 mg/dL (74-106); Lipase 47 U/L (13-75); Protein, Total 6.8 g/dL (6.4-8.2); Sodium Level 143 mmol/L (136-145)
--- NOTE | 2023-10-07 11:00 | RAD_ITS ---
STUDY: X-RAY - BILATERAL HANDS REASON FOR EXAM: Female, 38 years old. Trauma TECHNIQUE - RIGHT HAND: 3 view(s) of the right hand were obtained. TECHNIQUE - LEFT HAND: 3 view(s) of the left hand were obtained. COMPARISON: None. FINDINGS - RIGHT HAND: Normal visualized carpal bones and carpal articulations. Normal carpometacarpal articulation of the thumb. Normal second through fifth carpometacarpal joints. Normal metacarpi. Normal metacarpophalangeal (MCP) joints. Normal visualized phalanges and interphalangeal joints. The soft tissue structures are unremarkable. FINDINGS - LEFT HAND: Normal visualized carpal bones and carpal articulations. Normal carpometacarpal articulation of the thumb. Normal second through fifth carpometacarpal joints. Normal metacarpi. Normal metacarpophalangeal (MCP) joints. Normal visualized phalanges and interphalangeal joints. The soft tissue structures are unremarkable. RAD/Hand Min 3 Views IMPRESSION: Right Hand: Normal x-ray examination of the right hand. Left Hand: Normal x-ray examination of the left hand. Electronically Signed: Sj Durant MD at 11:30 EST ,
--- NOTE | 2023-10-07 11:00 | RAD_ITS ---
STUDY: X-RAY - BILATERAL ELBOWS REASON FOR EXAM: Female, 38 years old. Trauma TECHNIQUE - RIGHT ELBOW: 3 view(s) of the right elbow were obtained. TECHNIQUE - LEFT ELBOW: 3 view(s) of the left elbow were obtained. COMPARISON: None. FINDINGS - RIGHT ELBOW: Normal visualized humerus, radius and ulna. Normal radiocapitellar and ulnotrochlear articulations. The soft tissue structures are unremarkable. FINDINGS - LEFT ELBOW: Normal visualized humerus, radius and ulna. Normal radiocapitellar and ulnotrochlear articulations. The soft tissue structures are unremarkable. RAD/Elbow min 3 Views IMPRESSION: Right Elbow: Normal x-ray examination of the right elbow. Left Elbow: Normal x-ray examination of the left elbow. Electronically Signed: Sj Durant MD at 11:29 EST ,
--- NOTE | 2023-10-07 11:00 | RAD_ITS ---
STUDY: X-RAY - BILATERAL FEET CLINICAL: Female, 38 years old. Pain following injury. TECHNIQUE - RIGHT: 3 view(s) of the right foot. TECHNIQUE - LEFT: 3 view(s) of the left foot. COMPARISON: None. FINDINGS - RIGHT: Normal talus, calcaneus, and tarsal bones. Normal visualized subtalar, talonavicular, calcaneocuboid, tarsal and tarsometatarsal articulations. Normal metatarsi. Normal metatarsophalangeal joint of the great toe. Normal tibial and fibular sesamoid bones. Normal interphalangeal joint of the great toe. Normal phalanges of the great toe. Normal second through fifth metatarsophalangeal joints. Normal interphalangeal joints and phalanges of the lesser toes. Dorsal soft tissue swelling. FINDINGS - LEFT: Normal talus, calcaneus, and tarsal bones. Normal visualized subtalar, talonavicular, calcaneocuboid, tarsal and tarsometatarsal articulations. Normal metatarsi. Normal metatarsophalangeal joint of the great toe. Normal tibial and fibular sesamoid bones. Normal interphalangeal joint of the great toe. Normal phalanges of the great toe. Normal second through fifth metatarsophalangeal joints. Normal interphalangeal joints and phalanges of the lesser toes. Dorsal soft tissue swelling. RAD/Foot min 3 Views IMPRESSION: Dorsal soft tissue swelling of both feet. Electronically Signed: Sj Durant MD at 11:28 EST ,
[2023-10-07 12:00] VITALS: RESP 14
[2023-10-07 15:11] VITALS: RESP 16
--- NOTE | 2023-10-07 15:45 | CM.ED ---
Social Work SW consulted due to possible behavioral concerns. Pt was aggressive at prison and while in ED. Pt was medicated and sleeping soundly for observation. No medical concerns were found. Physician requested SW to to evaluate if there is ongoing aggression when patient awakes. Pt's level of aggression prior was a concern for safety of staff and patient. Pt awoke and SW observed nurse with patient. Pt at baseline and cooperative. Pt is not exhibiting aggression at this time. Pt to be discharged with prison staff member. Nancy Celis TECHNICIAN [employer] MAINTENANCE, CELL REPAIRER
== END 2023-10-07 15:49 | disposition home or self-care (01) ==
PROVIDERS: Emergency Provider Emergency Medicine; PCP Family Medicine; Visit Provider Emergency Medicine
DX: R41.0 Disorientation, unspecified (principal); F91.8 Other conduct disorders; Z79.899 Other long term (current) drug therapy
CPT/HCPCS: 71045; 73080; 73130; 73630; 80048; 80076; 80156; 81001; 83690; 85025; 96372; 99285; A4216; J3486

== ENCOUNTER 2023-10-09 09:21 | Emergency (ER) | payer MEDICARE, MEDICAID, SELFPAY ==
[2023-10-09 09:22] VITALS: BP 147/91; PULSE 90; RESP 16; TEMP 36.6; O2SAT 95; BMI 27.6
--- NOTE | 2023-10-09 09:31 | CT_ITS ---
STUDY: CT ABDOMEN AND PELVIS WITH CONTRAST REASON FOR EXAM: Female, 38 years old. Self-harm to the abdomen. RADIATION DOSAGE (If Supplied By Facility): CTDIvol = ( 20.06 ) mGy, DLP = ( 1141.01 ) mGycm TECHNIQUE: Transaxial images were obtained from the dome of the diaphragm to the symphysis pubis without oral contrast. IV 100mL [id number]-300 was administered. Sagittal and coronal images were reconstructed. Individualized dose optimization techniques were used for this CT. COMPARISON: None. FINDINGS: The visualized lung bases are unremarkable. The visualized portions of the heart are within normal limits. Normal liver. Calcification of the wall of the gallbladder. Normal spleen. Normal pancreas. Normal bilateral adrenal glands. Normal right kidney. Normal left kidney. Normal visualized stomach. Normal small intestine. Large amount of fecal material is seen in the colon. The appendix is visualized and appears normal. Normal abdominal aorta. Normal inferior vena cava. Normal retroperitoneum. Normal urinary bladder. There is absence of the uterus consistent with a prior hysterectomy. Normal abdominal wall. Grade 2 anterolisthesis of L5 on S1 due to spondylolysis of the pars interarticularis at the L5 vertebra. Disc space narrowing and spondylosis at the L5-S1 level. CT/Abdomen/Pelvis W IV Cont ONLY IMPRESSION: Calcification of the wall of the gallbladder. Large amount of fecal material is seen in the colon. Electronically Signed: Sj Durant MD at 12:18 EST ,
--- NOTE | 2023-10-09 09:31 | CT_ITS ---
STUDY: CT BRAIN WITHOUT CONTRAST REASON FOR EXAM: Female, 38 years old. ams RADIATION DOSAGE (If Supplied By Facility): CTDIvol = ( 44.99 ) mGy, DLP = ( 765.18 ) mGycm TECHNIQUE: Transaxial CT imaging of the brain was performed without administration of intravenous contrast material. Individualized dose optimization techniques were used for this CT. COMPARISON: No relevant priors. FINDINGS: Normal soft tissue structures. Normal calvarium. Normal size ventricles and extra-axial spaces for the patient''s age. Normal white matter tracts of the cerebral hemispheres. Enlargement of the posterior horn of the right lateral ventricle. Normal basal ganglia and thalami. Normal brainstem. Normal cerebellum. There is no intracranial hemorrhage. There are no findings of an acute ischemic infarction. Opacification of the ethmoid sinuses and the frontal sinuses. CT/Brain/Head without Contrast IMPRESSION: Sinusitis. Electronically Signed: Sj Durant MD at 12:19 EST ,
--- NOTE | 2023-10-09 09:37 | EX.ED.VIS.PS ---
HPI HPI - Psych History of Present Illness Chief Complaint: Mental Health Informant: mental health staff Narrative Narrative: 38-year-old patient from [place] [facility] presenting with combative behavior. Patient was seen the other day had essentially a negative workup. She was sedated with Geodon and Ativan. She woke up after sleeping for about 6 hours. Social work have been consulted. I saw the patient the other day unfortunately was not here at the end of the visit to know everything that was involved in the disposition. We will be speaking with social work again today to further look into that. Reportedly the patient went back to [place] [facility] was chasing other residents around trying to harm them and staff. Patient's not developed any fever or any other symptomology other than combative behavior. Patient cannot provide any meaningful history. Patient did have some recent psychiatric medication changes but this was done after her symptoms had developed. [facility] Medical History Acute diarrhea Bladder disease Blind Heartburn History of use of contraceptive intrauterine device (IUD) Impulse control disorder Kyphoscoliosis Non-smoker Profound mental handicap Restless legs Seizures Home Medications carbamazepine 200 mg tablet,extended release,12 hr 400 mg PO BID 11/18/14 [History Last Taken Unknown] gabapentin 400 mg capsule 400 mg PO TID 11/18/14 [History Last Taken Unknown] lorazepam 1 mg tablet 1 mg PO BID 11/18/14 [History Last Taken Unknown] loratadine 10 mg tablet (Allergy Relief (loratadine)) 10 mg PO DAILY 02/05/18 [History Last Taken Unknown] lorazepam 0.5 mg tablet 0.5 mg PO 1600 02/05/18 [History Last Taken Unknown] acetaminophen 500 mg tablet 500 mg PO BID 01/09/23 [History Last Taken Unknown] naproxen 500 mg tablet 500 mg PO BID 01/09/23 [History Last Taken Unknown] polyethylene glycol 3350 17 gram oral powder packet (Miralax) 17 g PO DAILY 01/09/23 [History Last Taken Unknown] trazodone 50 mg tablet 50 mg PO QHS PRN Sleep 01/09/23 [History Last Taken Unknown] oxycodone 5 mg tablet 5 mg PO Q8H PRN severe pain 7 days #21 TABLETS 01/17/23 [Rx Last Taken Unknown] melatonin 3 mg tablet mg 10/09/23 [History Last Taken Unknown] quetiapine 50 mg tablet mg 10/09/23 [History Last Taken Unknown] Allergy/AdvReac Type Severity Reaction Status Date / Time No Known Allergies Allergy Verified 10/09/23 09:22 Surgical History History of hysterectomy History of surgery Social History Smoking Status: Never smoker ROS ROS ED Review of Systems ROS Unobtainable: due to mental status Constitutional Constitutional ED: Denies fever(s) ENT ENT ED: Denies rhinorrhea Respiratory/Chest Respiratory/Chest: Denies cough Gastrointestinal Gastrointestinal: Denies diarrhea or vomiting EXAM Physical Exam Const Vital Signs: 10/09/23 09:22 10/09/23 10:39 10/09/23 13:46 Temperature 97.8 F 97.7 F L Temperature Source Temporal Temporal Pulse Rate 90 80 Respiratory Rate 16 18 18 Blood Pressure 147/91 H 131/96 H Blood Pressure Mean 109 107 Pulse Ox 95 95 Oxygen Delivery Method Room Air Positive well nourished and well developed Constitutional Narrative: Patient sitting in bed GI rating and rocking. Does not wish people to touch her. Swings arms when staff attempts to touch her. She is somewhat redirectable at this point and that we are able to give her a coloring book for her to hold and fidget with. I am then able to perform a limited examination General Appearance ED: well developed HEENT Reports normocephalic, head/scalp atraumatic and moist mucous membranes HEENT Narrative: Again no evidence of thrush Eyes Eyes Narrative: Patient is blind Neck no lymphadenopathy, supple and no JVD Resp normal respiratory effort and clear to auscultation bilaterally Cardio regular rate, regular rhythm and no murmurs GI normal to inspection, nondistended, normoactive bowel sounds and non-tender Palpation: soft Back/Spine no CVA tenderness and normal ROM Extremity normal to inspection General Extremety ED: Negative for edema General Extremity: Negative for edema Neuro Neuro Narrative: Moving all extremities. Sensorium / Orientation: alert Motor Exam: strength 5/5 throughout Skin no rashes or lesions noted and no wounds MDM MDM MDM Narrative Medical decision making narrative: CT of the brain demonstrates no intracranial hemorrhage or fracture. Noted sinusitis filled. CT of the abdomen pelvis demonstrates large amount of fecal material which would be consistent with her history of constipation. There is some calcification of her gallbladder wall. However white count is normal her abdomen is nontender and I do not think this represents a reason for the patient's behavior. Blood work essentially unremarkable when compared to the other day. COVID test is negative. Carbamazepine level at 9.6. Toxicology negative. No evidence of urinary tract infection. Spoke with social work who spoke with the board of [facility]. We have been turned down from multiple psychiatric facilities. She is required resedation this time I used some morphine and Ativan. We will continue to work to see if we can find placement for her. We are trying to get a hold of her psychiatrist. Care of the patient will be reassigned to oncoming physician. History & Record Review Discussion w/independent historian: EMS personnel and Other (halfway staff) Additional record(s) reviewed:: Prior ED visit and Prior labs Lab Data Labs: Laboratory Results - last 24 hr 10/09/23 10/09/23 10/09/23 09:34 10:45 12:30 WBC 5.2 RBC 3.77 L Hgb 12.1 Hct 36.2 L MCV 96.0 MCH 32.1 H MCHC 33.4 RDW Std Deviation 41.9 RDW Coeff of Sotero 12.0 Plt Count 204 MPV 11.3 Immature Gran % (Auto) 0.200 Neut % (Auto) 56.3 Lymph % (Auto) 33.6 [place] % (Auto) 5.6 Eos % (Auto) 4.1 Baso % (Auto) 0.2 Absolute Neuts (auto) 2.9 Absolute Lymphs (auto) 1.74 Nucleated RBC % 0 Sodium 142 Potassium 4.5 Chloride 114 H Carbon Dioxide 24.0 Anion Gap 4 L BUN 21 H Creatinine 0.60 Estim Creat Clear Calc 107.23 Est GFR (MDRD) Af Amer 145 Est GFR (MDRD) Non-Af 120 BUN/Creatinine Ratio 35.0 H Glucose 83 Calcium 8.1 L Total Bilirubin 0.20 Direct Bilirubin < 0.05 AST 26 ALT 24 Alkaline Phosphatase 95 Total Protein 7.1 Albumin 3.6 Globulin 3.5 Lipase 49 Serum , Qual NEGATIVE Urine Color Straw Urine Clarity Sl. Cloudy Urine pH 5.0 Ur Specific [place] 1.010 Urine Protein Negative Urine Glucose (UA) Normal Urine Ketones Negative Urine Occult Blood 250 H Urine Nitrite Negative Urine Bilirubin Negative Urine Urobilinogen Normal Ur Leukocyte Esterase 25 H Urine RBC 25-50 SEEN Urine WBC 0-5 SEEN Ur Squamous Epith Cells 0-5 SEEN Urine Bacteria 0 SEEN Urine Mucus 0 SEEN Urine Opiates Screen NEGATIVE Urine Methadone Screen NEGATIVE Ur Barbiturates Screen NEGATIVE Carbamazepine 9.6 Ur Phencyclidine Scrn NEGATIVE Ur Amphetamines Screen NEGATIVE MDMA (Ecstasy) Screen NEGATIVE U Benzodiazepines Scrn NEGATIVE Urine Cocaine Screen NEGATIVE U Cannabinoids Screen NEGATIVE Ur Drug Screen Comment Ethyl Alcohol < 3.0 Radiography Diagnostic Testing: Clinical Impression(s) from Imaging Studies Abdomen/Pelvis CT 10/09/23 09:31 IMPRESSION: Calcification of the wall of the gallbladder. Large amount of fecal material is seen in the colon. Electronically Signed: Sj Durant MD at 12:18 EST , Brain CT 10/09/23 09:31 IMPRESSION: Sinusitis. Electronically Signed: Sj uDrant MD at 12:19 EST , Chest X-Ray 10/09/23 12:00 IMPRESSION: Normal x-ray examination of the chest. Electronically Signed: Sj Durant MD at 12:20 EST , Discharge Plan Triage Chief Complaint: Mental Health ED Provider: Preston Sanchez Dx/Rx/DC Orders Clinical Impression: Combative behavior, Intellectual disability Prescriptions: No Action gabapentin 400 MG capsule 400 mg PO TID carbamazepine 200 MG tablet extended release 12 hr 400 mg PO BID lorazepam 1 MG tablet 1 mg PO BID lorazepam 0.5 MG tablet 0.5 mg PO 1600 loratadine [Allergy Relief (loratadine)] 10 MG tablet 10 mg PO DAILY trazodone 50 mg Tablet 50 mg PO QHS PRN (Reason: Sleep) polyethylene glycol 3350 [Miralax] 17 gram Powder In Packet 17 g PO DAILY acetaminophen 500 mg Tablet 500 mg PO BID naproxen 500 mg Tablet 500 mg PO BID oxycodone 5 mg tablet 5 mg PO Q8H PRN (Reason: severe pain) 7 Days Qty: 21 0RF melatonin 3 mg tablet quetiapine 50 mg tablet Primary Care Provider: Roland Johnson Referrals: Roland Johnson MD [Primary Care Provider] -
[2023-10-09] MEDS: Ziprasidone IM 20 MG/ML VIAL IM (09:43)
[2023-10-09 10:39] VITALS: RESP 18
[2023-10-09] MEDS: LORazepam 2 MG/ML Syringe 1 MG IV ×3 (10:41→14:55)
[2023-10-09 10:58] LABS: Absolute Lymphocyte Count 1.74 X10^3/uL (0.83-4.51); Absolute Neutrophil Count 2.9 X10^3/uL (2.0-7.7); Basophil# 0.01 X10^3/uL; Basophil% 0.2 % (0-1); Eosinophil# 0.21 X10^3/uL; Eosinophils% 4.1 % (0-5); Hematocrit 36.2 % (37-47); Hemoglobin 12.1 g/dL (12.0-15.0); Lymphocyte # 1.74 X10^3/ul (0.83-4.51); Lymphocyte % 33.6 % (19-41); Mean Corp Hgb Conc 33.4 g/dL (32-36); Mean Corpuscular Hgb 32.1 pg (27.0-32.0); Mean Platelet Vol. 11.3 fl (6.2-12.0); Monocyte# 0.29 X10^3/uL; Monocyte% 5.6 % (0-10); NRBC Flagged by Analyzer 0 % (0-5); Neutrophil # 2.92 X10^3/uL (2.7-7.7); Neutrophil % 56.3 % (47-70); Platelet Count 204 K/mm3 (150-450); RBC Distribution Width SD 41.9 fl (35.1-43.9); Red Blood Count 3.77 M/mm3 (4.2-5.4); White Blood Count 5.2 K/mm3 (4.4-11.0)
[2023-10-09 11:28] LABS: Alcohol, Blood (Medical)-Serum < 3.0 mg/dL
[2023-10-09 11:37] LABS: AST(SGOT) 26 U/L (15-37); Alanine Aminotransfer ALT/SGPT 24 U/L (13-56); Albumin, Serum 3.6 g/dL (3.2-5.0); Alkaline Phosphatase 95 U/L (45-117); Anion Gap 4 (5-15); BUN 21 mg/dL (7-18); Bilirubin, Direct < 0.05 mg/dL (0.00-0.30); Calcium,Total 8.1 mg/dL (8.5-10.1); Chloride 114 mmol/L (98-107); EST Glomerular Filtration Rate 120 mL/min (>60); Est Glom Filt Rate - Afr Amer 145 mL/min (>60); Estimated Creatinine Clearance 107.23 ml/min; Globulin 3.5 g/dL (2.2-4.2); Glucose 83 mg/dL (74-106); Lipase 49 U/L (13-75); Potassium 4.5 mmol/L (3.5-5.1); Protein, Total 7.1 g/dL (6.4-8.2); Sodium Level 142 mmol/L (136-145)
[2023-10-09 11:39] LABS: Internal QC Validated? YES +Cl - CLEAR BKGD; Pregnancy, Serum, hCG Quali. NEGATIVE Negative
--- NOTE | 2023-10-09 12:00 | RAD_ITS ---
STUDY: X-RAY CHEST REASON FOR EXAM: Female, 38 years old. ams TECHNIQUE: Single AP portable view of the chest. COMPARISON: Comparison is made with prior study dated October 07, 2023. FINDINGS: The lungs are clear and expanded. There is no demonstrated pleural abnormality. Normal size heart. Normal mediastinum and telly. Normal visualized pulmonary arteries. Normal visualized aortic arch and descending thoracic aorta. Normal visualized thoracic spine. Normal visualized ribs, clavicles, and shoulders. There is no demonstrated abnormality of the visualized soft tissue structures of the upper abdomen. RAD/Chest 1 View (Portable) IMPRESSION: Normal x-ray examination of the chest. Electronically Signed: Sj Durant MD at 12:20 [facility] ,
[2023-10-09 12:35] LABS: Bacteria 0 SEEN /hpf (None Seen); Mucous, Urine 0 SEEN /hpf (<or=2+)
[2023-10-09 12:55] LABS: Color, Urine Straw (Yellow); Glucose, Dipstick Normal (Normal); Ketone-Dipstick Negative (Negative); Leukocyte Esterase-Dipstick 25 /ul (Negative); Nitrite-Dipstick Negative (Negative); Occult Blood-Urine 250 /ul (Negative); Protein-Dipstick Negative (Negative); Urine Bilirubin Dipstick Negative (Negative); Urine Clarity Sl. Cloudy (Clear); Urine Urobilinogen Normal (Normal)
[2023-10-09 13:03] LABS: Red Blood Cells-Urine 25-50 SEEN /hpf (0-5); Squamous Epithelial Cells - UA 0-5 SEEN /hpf (5-10); White Blood Cells 0-5 SEEN /hpf (0-5)
[2023-10-09 13:34] LABS: Amphetamine Urine VISTA NEGATIVE (<1000 ng/mL); Barbiturate Urine VISTA NEGATIVE (< 200 ng/mL); Benzodiazepine Urine VISTA NEGATIVE (< 200 ng/mL); Cocaine Urine VISTA NEGATIVE (< 300 ng/mL); Ecstacy Urine VISTA NEGATIVE (< 500 ng/mL); Methadone Urine VISTA NEGATIVE (< 300 ng/mL); PCP Urine VISTA NEGATIVE (< 25 ng/mL); THC Urine VISTA NEGATIVE (< 50 ng/mL); Vista UDS pH Range 5
[2023-10-09 13:46] VITALS: BP 131/96; PULSE 80; RESP 18; TEMP 36.5; O2SAT 95
--- NOTE | 2023-10-09 14:06 | CM.ED ---
Social Work Psychiatric Assessment Reason for consult: Aggressive behavior Informant(s): Medical record, guardian, geriatric case manager Legal Guardian - Margarita Manning [phone] [employer]itentiary Trucking Manager ? Kathia Lang [phone] [facility] Board of DD SSA - Alena Thacker ? [phone] Chief Complaint: Aggressive behavior, mental status changes Marital/Social History/Living Situation: Patient is a 38-year-old female that resides in a half-way. Pt has never lived independently and is noted to be blind and have profound mental handicap. Pt has a legal guardian and board of DD worker. History: N/A Education and Employment History: Pt does attend workshop through DD provider but is otherwise unable to complete education or have employment. Mental Health Treatment/History: Mental health diagnoses are not known due to profound mental handicap. [facility] notes that a psychiatrist prescribes medications and there have been recent med changes. Added medications noted as Zyprexa and ambien and dosage changes have been noted by physician. Psych provider is Tyree Vaughan SPRING ASSEMBLER SUPERVISOR? and Dr. Johnson is PCP. Substance Abuse Hx: Unknown. Negative for substances. Abuse Issues/Trauma HX: Unknown Risk to Self/Others: Pt is a danger to self and others due to behaviors. Pt is noted to have thrown herself on the floor, chased staff and chased other residents to cause them harm. Pt cannot discuss SI/HI. Triggers/Stressors/Risk factors: Medication changes, mental and physical developmental disabilities Coping Skills: Workshop Support/Resources: Caseworkers and guardian Mental Status Exam: ?Pt is not oriented. Appearance/General Behavior/Mood/Affect: Pt presents as well-kept. Nursing report patient has been combative if being made to do something she does not want to do. Currently calm and cooperative likely due to medications given in order to complete testing (Ativan and Geodon) Communication Pattern/Thought process: Pt is unable to communicate verbally. General Intellectual Functioning:? Profound intellectual disability. Judgment/Insight: N/A Assessment: Patient brought to ED by half-way staff due to recent changes in patient?s behavior. Pt was also here two days ago. Two days ago, patient was here for aggressive behaviors and had a medical workup which did not provide any medical reason for agitation. Pt woke up and was cooperative at that time and discharged back to half-way. Pt back to ED today with similar behaviors. This week patient has been noted to throw herself on the floor with concern for injuries, attempting to harm staff and other residents by chasing and attacking them. Pt exhibits some agitation at the hospital initially and nursing notes she is combative if being made to do anything she does not want to do. Pt has been given Ativan and Geodon while in ED to manage behaviors and specifically to perform medical testing. Pt had xrays and lab work up 2 days ago without medical concerns and patient had cat scans, xray and lab work up today with out significant findings. Physician has medically cleared patient. Pt is noted to be a danger to herself and others. Pt has had a history of aggressive behaviors but has been well managed for the past 2 years. Pt has reportedly had recent medication and dosage changes. Patient would benefit from inpatient psychiatric placement for stabilization and medication review due to being a danger to herself and others. ED physician is in agreement with placement. Plan: Patient to be referred for psychiatric placement. Nancy Celis CHILD ABUSE WORKER, REACTOR FUELING SUPERVISOR
[2023-10-09 14:21] LABS: Carbamazepine (Tegretol) 9.6 ug/mL (4.0-12.0)
--- NOTE | 2023-10-09 14:25 | CM.ED ---
Social Work SW spoke with Legal Guardian Margarita Manning [phone]. [facility] provided consent for placement if needed. Board of DD SSA Alena Benito [phone] also contacted. LG and SSA believe behaviors are related to med changes and that patient would benefit from going somewhere to adjust meds and stabilize. SW has collaborated with these parties as well as physician and patient will attempt to be placed for psychiatric med review and stabilization. All parties are aware that patient will be a difficult placement if placement can be found. Pt has profound intellectual disabilities and is blind which puts the patient at risk in psych facilities and pt could not participate in programming. Most psychiatric facilities have a min. level of functioning and/or IQ level which patient will not meet criteria. [facility] with board of DD did not have any placement recommendations for dual DD/psych facilities. P[facility]LO will attempt to find placement. Nancy Celis CARBON FURNACE OPERATOR HELPER, TECHNICAL SALES CONSULTANT
[2023-10-09] MEDS: Morphine 4 MG/ML Syringe IV (14:55)
--- NOTE | 2023-10-09 15:13 | ED.RN ---
called for dinner tray
--- NOTE | 2023-10-09 17:10 | CM.ED ---
Social Work Pt denied from several facilities. [place] and [facility] agreed to review referral packet but patient declined due to level of functioning and aggression. SW anticipated difficulty with placement. PABLO spoke with Alena CHARLES regarding inability to place and possible recommendations. [facility] did not have any recommendations but did provide info for director [facility] who provides care for patient. PABLO spoke with director of [facility], . Reviewed referrals and possible options and SW inquired about psychiatric provider and possible contact with doctor to review medications outside of psych facility. Neisha inquired about medical results and SW provided overview of doctor's note that indicated he did not find a medical cause for behavior. Neisha reports she knew it would be a difficult placement and she agreed to speak with her nurse on-call and work on a plan. Neisha returned call and reports she spoke with her nurse and psychiatric provider to develop a plan. Neisha is agreeable to patient returning to nursing home with psychiatrist available and they have a plan in order. Neisha reports she can send someone to transport patient and worker present shortly. SW informed physician they are able to take patient back and they have a plan in order. Physician is in agreement to discharge. Nancy Celis JACK TAMP OPERATOR, LOGGING WORKER
== END 2023-10-09 17:30 | disposition home or self-care (01) ==
PROVIDERS: Emergency Provider Emergency Medicine; PCP Family Medicine; Visit Provider Emergency Medicine
DX: R45.6 Violent behavior (principal); F79 Unspecified intellectual disabilities; Z11.52 Encounter for screening for COVID-19; Z79.899 Other long term (current) drug therapy
CPT/HCPCS: 70450; 71045; 74177; 80048; 80076; 80156; 80307; 81001; 82077; 83690; 84703; 85025; 87811; 96372; 96374; 96375; 96376; 99285; J7030; P9612; Q9967; A4216; J3486

== ENCOUNTER 2023-10-14 09:27 | Emergency (ER) | payer MEDICARE, MEDICAID, SELFPAY ==
[2023-10-14 09:32] VITALS: RESP 16; TEMP 35.9; BMI 27.4
--- NOTE | 2023-10-14 09:48 | EX.ED.DYSGE1 ---
HPI History of Present Illness Chief Complaint: Constipation PFSH PFS Medical History Acute diarrhea Bladder disease Blind Heartburn History of use of contraceptive intrauterine device (IUD) Impulse control disorder Kyphoscoliosis Non-smoker Profound mental handicap Restless legs Seizures Home Medications carbamazepine 200 mg tablet,extended release,12 hr 400 mg PO BID 11/18/14 [History Last Taken Unknown] gabapentin 400 mg capsule 400 mg PO TID 11/18/14 [History Last Taken Unknown] lorazepam 1 mg tablet 1 mg PO BID 11/18/14 [History Last Taken Unknown] loratadine 10 mg tablet (Allergy Relief (loratadine)) 10 mg PO DAILY 02/05/18 [History Last Taken Unknown] lorazepam 0.5 mg tablet 0.5 mg PO 1600 02/05/18 [History Last Taken Unknown] acetaminophen 500 mg tablet 500 mg PO BID 01/09/23 [History Last Taken Unknown] naproxen 500 mg tablet 500 mg PO BID 01/09/23 [History Last Taken Unknown] polyethylene glycol 3350 17 gram oral powder packet (Miralax) 17 g PO DAILY 01/09/23 [History Last Taken Unknown] trazodone 50 mg tablet 50 mg PO QHS PRN Sleep 01/09/23 [History Last Taken Unknown] oxycodone 5 mg tablet 5 mg PO Q8H PRN severe pain 7 days #21 TABLETS 01/17/23 [Rx Last Taken Unknown] melatonin 3 mg tablet mg 10/09/23 [History Last Taken Unknown] quetiapine 50 mg tablet mg 10/09/23 [History Last Taken Unknown] Allergy/AdvReac Type Severity Reaction Status Date / Time No Known Allergies Allergy Verified 10/09/23 09:22 Surgical History History of hysterectomy History of surgery Social History Smoking Status: Never smoker EXAM Physical Exam Const Vital Signs: 10/14/23 09:32 Temperature 96.6 F L Temperature Source Temporal Respiratory Rate 16 MDM MDM MDM Narrative Medical decision making narrative: *HISTORY OF PRESENT ILLNESS: 38-year-old female here with concern for constipation. She is accompanied by her [place] [facility] caregiver. Open caregiver states patient has been a bit more agitated eating more than usual given she started Zyprexa and was taken off MiraLAX 3 weeks ago. Since that time she has had decreased number of bowel movements. Last bowel was yesterday. She notes no vomiting no fever. No concerning urinary symptoms. REVIEW OF SYSTEMS: Pertinent positives: Constipation, agitation Pertinent negatives: Vomiting PHYSICAL EXAM: Nursing triage notes reviewed, Vital signs reviewed Constitutional: please see mdm HENT: MMM Eyes: Pupils equal round and reactive to light, Extraocular muscles intact Neck: No stridor, no JVD, full neck ROM Lungs: Clear to auscultation, No wheezing or rales. No increased work of breathing, no conversational dyspnea, no accessory muscle use, no nasal flaring. No respiratory distress noted Heart: Regular rate and rhythm, No murmurs, No rubs and No gallops, 2+ distal pulses (radial, femoral, posterior tibial) in all extremities Abdomen: Soft, there is no tenderness, rigidity, rebound or guarding, no obvious peritoneal signs, no palpable pulsatile abdominal masses, no auscultated abdominal bruit : No CVAT Extremities: No edema Neuro: No focal neurological deficits, cranial nerves II through XII intact, 5/5 strength in all extremities. Intact sensation to light touch in all extremities, 2+ reflexes bilateral patella tendons. Normal gait. No ataxia. Skin: No rash or lesions noted MEDICAL DECISION MAKING: Chief Complaint: Constipation External records reviewed: CT scan of the abdomen pelvis from October 09, 2023 shows large amount of fecal material in the colon Factors affecting care: Combative behavior, intellectual disability Social determinants of health: none History obtained from others: none Consults: none [facility] Narrative: The patient was hemodynamically stable, afebrile, nontoxic-appearing. Abdomen soft nontender I considered the following differential diagnosis: Constipation, bowel obstruction I considered bowel obstruction however thought this was less likely given the patient's recent negative CT scan within the last 7 days. Patient is likely suffering from constipation as noted on prior CT scan which showed a large stool burden. I prescribed a bowel regimen which consisted of MiraLAX, senna and Colace. Gave return precautions and follow-up instructions. The patient and/or family, caregivers express understanding. The patient and/or family, caregivers agrees with the plan. Shared decision making: I will have a discussion with the patient and or visitors regarding risk/benefits of further testing or admission. They will be made aware of of the risk/benefits inherent in this decision they will be given the opportunity to voice understanding. Total critical care time today provided was at least 0 minutes. This excludes separately billable procedures. Critical care time (if documented) is secondary to the patient having high probability of clinically significant/life threatening deterioration in the patient's condition which required my urgent intervention. Impression: 1. Constipation 2. History developmental delay Dispo: Discharge Discharge Plan Triage Chief Complaint: Constipation ED Provider: Sy Hurley Dx/Rx/DC Orders Prescriptions: No Action gabapentin 400 MG capsule 400 mg PO TID carbamazepine 200 MG tablet extended release 12 hr 400 mg PO BID lorazepam 1 MG tablet 1 mg PO BID lorazepam 0.5 MG tablet 0.5 mg PO 1600 loratadine [Allergy Relief (loratadine)] 10 MG tablet 10 mg PO DAILY trazodone 50 mg Tablet 50 mg PO QHS PRN (Reason: Sleep) polyethylene glycol 3350 [Miralax] 17 gram Powder In Packet 17 g PO DAILY acetaminophen 500 mg Tablet 500 mg PO BID naproxen 500 mg Tablet 500 mg PO BID oxycodone 5 mg tablet 5 mg PO Q8H PRN (Reason: severe pain) 7 Days Qty: 21 0RF melatonin 3 mg tablet quetiapine 50 mg tablet Primary Care Provider: Roland Johnson Referrals: Roland Johnson MD [Primary Care Provider] -
[2023-10-14 11:18] VITALS: RESP 16; TEMP 35.8
--- NOTE | 2023-10-14 11:22 | ED.RN ---
Dr Hurley was notified that this RN could not obtain vital signs due to an increase in agitation when the patient was placed on the monitor. Dr Hurley gave the okay to not do vitals due to the increase in agitation.
== END 2023-10-14 11:20 | disposition home or self-care (01) ==
PROVIDERS: Emergency Provider Emergency Medicine; PCP Family Medicine; Visit Provider Emergency Medicine
DX: K59.00 Constipation, unspecified (principal); R56.9 Unspecified convulsions; F73 Profound intellectual disabilities; F81.9 Developmental disorder of scholastic skills, unspecified; R45.1 Restlessness and agitation; M41.9 Scoliosis, unspecified; G25.81 Restless legs syndrome; Z79.899 Other long term (current) drug therapy; F63.9 Impulse disorder, unspecified
CPT/HCPCS: 99282

== ENCOUNTER 2024-04-18 15:52 | Emergency (ER) | payer MEDICARE, MEDICAID, SELFPAY ==
[2024-04-18 15:54] VITALS: PULSE 88; RESP 16; TEMP 36.4; O2SAT 96; BMI 26.2
[2024-04-18 16:05] VITALS: BP 122/80
--- NOTE | 2024-04-18 16:47 | EDS_ITS ---
HPI History of Present Illness Chief Complaint: General Illness Informant: other (alf staff) Onset/Context/Timing Onset: Today Context: Gradual Onset Timing: Continuous Quality: Sluggish Location: Generalized Worsened by: Nothing Relieved by: Nothing Narrative Narrative: Patient presents with altered mental status that became worse today. Staff states that the patient started having some shallow breathing today. Staff states that they attempted to check her pulse oximeter and it was reading 80% on room air. Staff states that they tried to check her heart rate and the pulse oximeter was reading her heart rate at 37. 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 Staff denies any recent fevers or chills. Staff denies any cough. Staff denies any nausea or vomiting. Staff states that the patient was acting like her normal self yesterday. [facility] Medical History Kyphoscoliosis Impulse control disorder Bladder disease Restless legs Heartburn Non-smoker History of use of contraceptive intrauterine device (IUD) Acute diarrhea Profound mental handicap Seizures Blind Home Medications ?Medication ?Instructions ?Recorded ?Last Taken ?Type carbamazepine 200 mg 400 mg PO BID 11/18/14 Unknown History tablet,extended release,12 hr gabapentin 400 mg capsule 400 mg PO TID 11/18/14 Unknown History lorazepam 1 mg tablet 1 mg PO BID 11/18/14 Unknown History loratadine 10 mg tablet (Allergy 10 mg PO DAILY 02/05/18 Unknown History Relief (loratadine)) lorazepam 0.5 mg tablet 0.5 mg PO 1600 02/05/18 Unknown History acetaminophen 500 mg tablet 500 mg PO TID 01/09/23 Unknown History naproxen 500 mg tablet 500 mg PO BID 01/09/23 Unknown History polyethylene glycol 3350 17 gram 17 g PO DAILY 01/09/23 Unknown History oral powder packet (Miralax) oxycodone 5 mg tablet 5 mg PO Q8H PRN severe pain 7 days 01/17/23 Unknown Rx #21 TABLETS quetiapine 50 mg tablet 50 mg PO TID 10/09/23 Unknown History cephalexin 500 mg capsule 500 mg PO Q6 #20 CAPSULES 04/18/24 Unknown Rx ondansetron 4 mg disintegrating 4 mg PO Q8H PRN PRN Nausea #10 tabs 04/18/24 Unknown Rx tablet zolpidem 10 mg tablet 10 mg PO QHS PRN PRN sleep 04/18/24 Unknown History Allergy/AdvReac Type Severity Reaction Status Date / Time No Known Allergies Allergy Verified 04/18/24 15:54 Surgical History History of hysterectomy History of surgery Social History Smoking Status: Never smoker ROS ROS ED Review of Systems ROS Unobtainable: due to encephalopathy and due to mental condition EXAM Physical Exam Const Vital Signs: 04/18/24 15:54 04/18/24 16:05 04/18/24 16:17 Temperature 97.6 F L Temperature Source Temporal Pulse Rate 88 Respiratory Rate 16 Respiratory Effort Normal Non-Labored Respiratory Pattern Normal Blood Pressure 122/80 H Blood Pressure Mean 94 Pulse Ox 96 Oxygen Delivery Method Room Air 04/18/24 17:59 04/18/24 20:00 04/18/24 22:00 Temperature 98.8 F 98.1 F Temperature Source Temporal Temporal Pulse Rate 70 92 80 Respiratory Rate 20 H 18 16 Respiratory Effort Respiratory Pattern Blood Pressure 125/77 H 110/91 H 153/70 H Blood Pressure Mean 93 97 97 Pulse Ox 98 100 98 Oxygen Delivery Method Room Air Room Air Room Air Positive well nourished and well developed General Appearance ED: well developed HEENT Reports moist mucous membranes Neck supple and no JVD Resp normal respiratory effort and clear to auscultation bilaterally Cardio regular rate and regular rhythm GI non-tender and non-distended Palpation: soft Neuro CN's II-XII intact bilaterally and no sensory deficits noted Sensorium / Orientation: alert Motor Exam: general weakness Skin no rashes or lesions noted MDM MDM MDM Narrative Medical decision making narrative: Differential diagnosis includes pneumonia, urinary tract infection, sepsis, electrolyte abnormality, dehydration, pyelonephritis, and encephalopathy. CBC will be obtained to assess for leukocytosis and anemia. Comprehensive metabolic profile will be obtained to assess for hepatic function, renal function, and electrolyte abnormality. Urinalysis will be obtained to assess for urinary tract infection and hematuria. Blood cultures will be obtained to assess for sepsis. Urine culture will be obtained to assess for urinary tract infection. Lactate will be obtained to assess for sepsis. CT scan of the brain will be obtained to assess for intracranial bleeding. Lab Data Attestation: I reviewed the patient's lab results. Lab results narrative: CBC was reviewed. There is a mild leukocytosis of 12.2. The remainder was within normal limits. Comprehensive metabolic profile was reviewed and was essentially within normal limits. D-dimer was reviewed and was normal at less than 0.27. Serum lactate was reviewed and was normal at 1.3. High-sensitivity troponin was reviewed and was normal at less than 3. Urinalysis was reviewed. There is 2+ urine bacteria. There is no white blood cells seen. Leukocyte esterase was negative. COVID-19 PCR was reviewed and was negative. Influenza PCR was reviewed and was negative for influenza A and influenza B. RSV PCR was reviewed and was negative. Labs: Laboratory Results - last 24 hr 04/18/24 04/18/24 04/18/24 17:27 17:28 17:39 WBC 12.2 H RBC 4.09 L Hgb 13.1 Hct 38.8 MCV 94.9 MCH 32.0 MCHC 33.8 RDW Std Deviation 39.8 RDW Coeff of [place] 11.6 Plt Count 264 MPV 11.8 Immature Gran % (Auto) 0.400 Neut % (Auto) 90.3 H Lymph % (Auto) 7.3 L [place] % (Auto) 1.9 Eos % (Auto) 0.0 Baso % (Auto) 0.1 Absolute Neuts (auto) 11.0 H Absolute Lymphs (auto) 0.89 Nucleated RBC % 0 D-Dimer Quant (PE/DVT) < 0.27 L Sodium 140 Potassium 4.3 Chloride 109 H Carbon Dioxide 28.0 Anion Gap 3 L BUN 22 H Creatinine 0.84 Estim Creat Clear Calc 84.38 Est GFR (MDRD) Af Amer 98 Est GFR (MDRD) Non-Af 81 BUN/Creatinine Ratio 26.3 H Glucose 124 H Lactic Acid 1.3 Calcium 9.2 Total Bilirubin 0.20 AST 43 H ALT 62 H Alkaline Phosphatase 91 Troponin I High Sens < 3 L Total Protein 7.9 Albumin 3.9 Globulin 4.0 Albumin/Globulin Ratio 1.0 Urine Color Yellow Urine Clarity Sl. Cloudy Urine pH 8.0 Ur Specific [place] 1.010 Urine Protein Negative Urine Glucose (UA) Normal Urine Ketones Negative Urine Occult Blood Negative Urine Nitrite Negative Urine Bilirubin Negative Urine Urobilinogen Normal Ur Leukocyte Esterase Negative Urine RBC 0 SEEN Urine WBC 0 SEEN Ur Squamous Epith Cells 0 SEEN Amorphous Sediment 1+ Urine Bacteria 2+ Urine Mucus 0 SEEN POC Glucose 115 H Radiography Chest X-Ray - ED: 1 View, Read by ED Physician, Read by Radiologist and No Acute Disease Diagnostic Testing: Clinical Impression(s) from Imaging Studies Brain CT 04/18/24 16:55 IMPRESSION: No acute intracranial pathology of the brain. Paranasal sinus disease. Electronically Signed: Heath DO Abelardo at 20:22 EDT , Chest X-Ray 04/18/24 17:45 IMPRESSION: No radiographic evidence of acute cardiopulmonary disease. Electronically Signed: Heath Zhou DO at 18:08 EDT , CT scan of the brain was obtained. There is no acute intracranial abnormality. There is some paranasal sinus disease. This was interpreted by the radiologist and was also independently reviewed by myself. Portable 1 view chest x-ray was obtained. On my independent interpretation, lung ramirez are clear. There is normal cardiac silhouette. Bony thorax is normal. There is no acute process noted. Radiologist also interpreted the x- ray and agrees. EKG Initial EKG: Attestation: I personally reviewed and interpreted this EKG as follows: Interpretation: Sinus Rhythm (82) and No Acute Injury Pattern Comments: EKG was obtained. On my independent interpretation, it showed a normal sinus rhythm with a rate of 82. AL interval, QRS interval, and QTc intervals were all normal. [place] was normal. There are no acute ST or T wave changes. Treatment and Re-Evaluation :: Patient was given 2 doses of Versed so that she could lay flat and still for her CT scan. Patient was given IV fluids. Staff was advised of the findings. I do not see any emergent cause for her mental status change. Patient was given a prescription for Keflex to cover for bacteriuria and sinusitis. Staff was instructed to continue using Tylenol or ibuprofen as needed for any fevers or pain. Staff was instructed to follow-up with the patient's primary care physician in 3 to 5 days. Staff was instructed to return if worse in any way. Staff understood and was agreeable with the plan. All questions were answered. Discharge Plan Triage Chief Complaint: General Illness ED Provider: Lex Abreu Dx/Rx/DC Orders Clinical Impression: Bacteriuria, Mental status alteration Instructions: ED Cystitis Female Adult Prescriptions: New cephalexin 500 mg capsule 500 mg PO Q6 Qty: 20 0RF ondansetron 4 mg tablet,disintegrating 4 mg PO Q8H PRN PRN (Reason: Nausea) Qty: 10 0RF No Action gabapentin 400 MG capsule 400 mg PO TID carbamazepine 200 MG tablet extended release 12 hr 400 mg PO BID lorazepam 1 MG tablet 1 mg PO BID lorazepam 0.5 MG tablet 0.5 mg PO 1600 loratadine [Allergy Relief (loratadine)] 10 MG tablet 10 mg PO DAILY polyethylene glycol 3350 [Miralax] 17 gram Powder In Packet 17 g PO DAILY acetaminophen 500 mg Tablet 500 mg PO TID naproxen 500 mg Tablet 500 mg PO BID oxycodone 5 mg tablet 5 mg PO Q8H PRN (Reason: severe pain) 7 Days Qty: 21 0RF quetiapine 50 mg tablet 50 mg PO TID Patient Comments: 100mg at night zolpidem 10 mg tablet 10 mg PO QHS PRN PRN (Reason: sleep) Primary Care Provider: Roland Johnson Referrals: Roland Johnson MD [Primary Care Provider] - 3-5 Days Print Language: Italian Disposition Disposition: Home, Self Care
--- NOTE | 2024-04-18 16:55 | EKG12_ITS ---
Test Reason : GEN ILLNESS Blood Pressure : / mmHG Vent. Rate : 082 BPM Atrial Rate : 082 BPM P-R Int : 134 ms QRS Dur : 078 ms QT Int : 384 ms P-R-T Axes : 059 058 052 degrees QTc Int : 448 ms Normal sinus rhythm Normal ECG No previous ECGs available Confirmed by NIA RUIZ, BOUBACAR ([id number]), food expeditor PERNELL DENNY ([id number]) on 04/21/2024 8:33:31 AM Referred By: Confirmed By:BOUBACAR KRAMER MD
--- NOTE | 2024-04-18 16:55 | CT_ITS ---
STUDY: CT BRAIN WITHOUT CONTRAST REASON FOR EXAM: Female, 39 years old. Altered mental status RADIATION DOSAGE (If Supplied By Facility): CTDIvol = ( 44.99 ) mGy, DLP = ( 745.49 ) mGycm TECHNIQUE: Transaxial CT imaging of the brain was performed without administration of intravenous contrast material. Individualized dose optimization techniques were used for this CT. COMPARISON: October 09, 2023 FINDINGS: Normal soft tissue structures. Normal calvarium. Slightly prominent ventricles with dilatation of the occipital horns similar to previous study, right more than left. Normal extra-axial spaces for the patient''s age. Normal white matter tracts of the cerebral hemispheres. Normal basal ganglia and thalami. Normal brainstem. Normal cerebellum. There is no intracranial hemorrhage. There are no findings of an acute ischemic infarction. Mucosal thickening of the visualized paranasal sinuses. CT/Brain/Head without Contrast IMPRESSION: No acute intracranial pathology of the brain. Paranasal sinus disease. Electronically Signed: Heath Zhou DO at 20:22 EDT ,
[2024-04-18] MEDS: 0.9% Normal Saline (1000mL) 1,000 ML 1000 ML IV (17:23)
--- NOTE | 2024-04-18 17:45 | RAD_ITS ---
INDICATION: Dyspnea EXAMINATION/TECHNIQUE: X-RAY - XR Chest 1 View COMPARISON: FINDINGS: LINES/DEVICES: None. LUNGS: No consolidation, edema or effusion. No pneumothorax. MEDIASTINUM AND CARDIOVASCULAR STRUCTURES: Cardiac silhouette not enlarged. Central airways and mediastinal contour are unremarkable. BONES AND SOFT TISSUES: Mild scoliosis. RAD/Chest 1 View (Portable) IMPRESSION: No radiographic evidence of acute cardiopulmonary disease. Electronically Signed: Heath Zhou DO at 18:08 EDT ,
[2024-04-18 17:49] LABS: Mucous, Urine 0 SEEN /hpf (<or=2+); Red Blood Cells-Urine 0 SEEN /hpf (0-5); Squamous Epithelial Cells - UA 0 SEEN /hpf (5-10); White Blood Cells 0 SEEN /hpf (0-5)
[2024-04-18 17:52] LABS: Absolute Lymphocyte Count 0.89 X10^3/uL (0.83-4.51); Basophil# 0.01 X10^3/uL; Basophil% 0.1 % (0-1); Hematocrit 38.8 % (37-47); Hemoglobin 13.1 g/dL (12.0-15.0); Lymphocyte # 0.89 X10^3/ul (0.83-4.51); Lymphocyte % 7.3 % (19-41); Mean Corp Hgb Conc 33.8 g/dL (32-36); Mean Corpuscular Volume 94.9 fL (81-99); Mean Platelet Vol. 11.8 fl (6.2-12.0); Monocyte# 0.23 X10^3/uL; Monocyte% 1.9 % (0-10); NRBC Flagged by Analyzer 0 % (0-5); Neutrophil # 10.97 X10^3/uL (2.7-7.7); Neutrophil % 90.3 % (47-70); Platelet Count 264 K/mm3 (150-450); RBC Distribution Width CV 11.6 % (11.6-14.6); RBC Distribution Width SD 39.8 fl (35.1-43.9); Red Blood Count 4.09 M/mm3 (4.2-5.4); White Blood Count 12.2 K/mm3 (4.4-11.0)
[2024-04-18 17:59] VITALS: BP 125/77; PULSE 70; RESP 20; O2SAT 98
[2024-04-18 18:00] LABS: Bedside Glucose 115 mg/dL (74-106)
[2024-04-18] MEDS: Midazolam 2 MG/2 ML Syringe IV ×2 (18:10→19:09)
[2024-04-18 18:12] LABS: D-Dimer Quantitative (DVT/PE) < 0.27 FEU/ug/m (0.27-0.49)
[2024-04-18 18:18] LABS: Color, Urine Yellow (Yellow); Glucose, Dipstick Normal (Normal); Ketone-Dipstick Negative (Negative); Leukocyte Esterase-Dipstick Negative /ul (Negative); Nitrite-Dipstick Negative (Negative); Occult Blood-Urine Negative /ul (Negative); Protein-Dipstick Negative (Negative); Urine Bilirubin Dipstick Negative (Negative); Urine Clarity Sl. Cloudy (Clear); Urine Urobilinogen Normal (Normal)
[2024-04-18 18:26] LABS: AST(SGOT) 43 U/L (15-37); Alanine Aminotransfer ALT/SGPT 62 U/L (13-56); Albumin, Serum 3.9 g/dL (3.2-5.0); Alkaline Phosphatase 91 U/L (45-117); Anion Gap 3 (5-15); BUN 22 mg/dL (7-18); BUN/Creat Ratio 26.3 RATIO (10-20); Calcium,Total 9.2 mg/dL (8.5-10.1); Chloride 109 mmol/L (98-107); Creatinine, Serum 0.84 mg/dL (0.55-1.02); EST Glomerular Filtration Rate 81 mL/min (>60); Est Glom Filt Rate - Afr Amer 98 mL/min (>60); Estimated Creatinine Clearance 84.38 ml/min; Glucose 124 mg/dL (74-106); Lactic Acid 1.3 mmol/L (0.4-1.9); Potassium 4.3 mmol/L (3.5-5.1); Protein, Total 7.9 g/dL (6.4-8.2); Sodium Level 140 mmol/L (136-145); Troponin-I HS < 3 pg/mL (3.0-54.0)
[2024-04-18 18:52] LABS: Amorphous Sediment 1+; Bacteria 2+ /hpf (None Seen)
[2024-04-18 20:00] VITALS: BP 110/91; PULSE 92; RESP 18; TEMP 37.1; O2SAT 100
[2024-04-18] MEDS: Ondansetron 4 MG/2 ML Vial IV (21:57)
[2024-04-18 22:00] VITALS: BP 153/70; PULSE 80; RESP 16; TEMP 36.7; O2SAT 98
[2024-04-18 23:01] VITALS: BP 125/85; PULSE 68; RESP 18; TEMP 36.6; O2SAT 98
== END 2024-04-18 23:05 | disposition home or self-care (01) ==
PROVIDERS: Emergency Provider Emergency Medicine; PCP Family Medicine; Visit Provider Emergency Medicine
DX: R82.71 Bacteriuria (principal); R41.82 Altered mental status, unspecified; J32.9 Chronic sinusitis, unspecified; Z11.52 Encounter for screening for COVID-19; Z79.899 Other long term (current) drug therapy
CPT/HCPCS: 70450; 71045; 80053; 81001; 82962; 83605; 84484; 85025; 85379; 87040; 87086; 87631; 93005; 96361; 96374; 96375; 96376; 99284; J7030; A4216; J2405

== ENCOUNTER 2024-04-19 09:56 | Observation (INO) | payer MEDICARE, MEDICAID, SELFPAY ==
[2024-04-19] VITALS (8 sets, daily range): BP systolic 119–142; BP diastolic 67–90; PULSE 84–101; RESP 13–18; TEMP 36.1–36.6; O2SAT 99–100; BMI 29.2; BMI 27.6
--- NOTE | 2024-04-19 10:11 | EDS_ITS ---
HPI History of Present Illness Chief Complaint: Nausea/Vomiting/Diarrhea Detail of Chief Complaint: Change in mental status. Informant: other Limited: other (Nonverbal) Onset/Context/Timing Onset: Yesterday (Seen in ED yesterday. Had significant workup and was found to have bacteriuria.) Context: Gradual Onset Timing: Continuous Quality: Less active, poor p.o. intake, Location: Workup yesterday revealed bacturia. Current Severity: Patient normally active. She is not. She slumped over Maximum Severity: Document under current severity Worsened by: Presumed cystitis/sepsis Relieved by: Nothing Associated Symptoms Associated Symptoms: Vomiting x 3 since yesterday and 1 more she is bowel movement Narrative Narrative: Patient is a 39-year-old woman. She is nonverbal. She was brought in because of vomiting, diarrhea, change in behavior. She was seen yesterday. Workup was reviewed. She did have evidence of bacteria. Blood culture and urine cultures were obtained. There is no growth noted. Patient was found on the floor. She was not very active. This concerned the staff. Furthermore she has had poor p.o. intake. Workers noted that her hands are cold to touch. She normally will say out. She has since been known to bite. At the present time she is slouched over and not very active. She does not respond to tactile stimulus or verbal stimulus. She has a history of biting noxious stimulus was not applied. Recent Illness/Hospitalization: Yes [facility] Medical History Kyphoscoliosis Impulse control disorder Bladder disease Restless legs Heartburn Non-smoker History of use of contraceptive intrauterine device (IUD) Acute diarrhea Profound mental handicap Seizures Blind Home Medications ?Medication ?Instructions ?Recorded ?Last Taken ?Type carbamazepine 200 mg 400 mg PO BID 11/18/14 Unknown History tablet,extended release,12 hr gabapentin 400 mg capsule 400 mg PO TID 11/18/14 Unknown History lorazepam 1 mg tablet 1 mg PO BID 11/18/14 Unknown History loratadine 10 mg tablet (Allergy 10 mg PO DAILY 02/05/18 Unknown History Relief (loratadine)) lorazepam 0.5 mg tablet 0.5 mg PO 1600 02/05/18 Unknown History acetaminophen 500 mg tablet 500 mg PO TID 01/09/23 Unknown History naproxen 500 mg tablet 500 mg PO BID 01/09/23 Unknown History polyethylene glycol 3350 17 gram 17 g PO DAILY 01/09/23 Unknown History oral powder packet (Miralax) oxycodone 5 mg tablet 5 mg PO Q8H PRN severe pain 7 days 01/17/23 Unknown Rx #21 TABLETS quetiapine 50 mg tablet 50 mg PO TID 10/09/23 Unknown History cephalexin 500 mg capsule 500 mg PO Q6 #20 CAPSULES 04/18/24 Unknown Rx ondansetron 4 mg disintegrating 4 mg PO Q8H PRN PRN Nausea #10 tabs 04/18/24 Un known Rx tablet zolpidem 10 mg tablet 10 mg PO QHS PRN PRN sleep 04/18/24 Unknown History Allergy/AdvReac Type Severity Reaction Status Date / Time No Known Allergies Allergy Verified 04/19/24 10:12 Surgical History History of hysterectomy History of surgery Social History (Updated 04/19/24 @ 10:[address] Ant Khan MD) household members: other details: [facility] Smoking Status: Never smoker ROS ROS ED Review of Systems ROS Unobtainable: due to mental status EXAM Physical Exam Const Vital Signs: 04/19/24 09:58 04/19/24 10:03 04/19/24 11:03 Temperature 97.9 F 97.9 F 97.8 F Temperature Source Temporal Temporal Temporal Pulse Rate 101 H 101 H 90 Respiratory Rate 16 16 14 Blood Pressure 142/81 H 142/81 H 122/74 H Blood Pressure Mean 101 101 90 Pulse Ox 99 99 100 Oxygen Delivery Method Room Air Room Air Room Air Positive well nourished and well developed; Negative for cachectic, contractures or unkempt General Appearance ED: well developed and pallor; Negative for unkempt, cachectic, contractures, cyanotic or diaphoretic Nutritional Appearance: Negative for cachectic HEENT Reports dry mucous membranes HEENT Narrative: Head is atraumatic normocephalic. Ears normal. Nares patent. Mouth ED: Yes dry mucous membranes Mouth: dry mucous membranes Eyes PERRL and EOMs intact bilaterally General Eye ED: Negative for pale conjunctiva or scleral icterus Neck no lymphadenopathy, supple and no JVD Neck Narrative: Trachea is midline. There is no inspiratory expiratory stridor. Chest Wall inspection of chest normal and palpation of chest normal Resp normal respiratory effort and clear to auscultation bilaterally Cardio regular rhythm, S1 normal heart sound, S2 normal heart sound and no murmurs Rate: tachycardic GI normal to inspection, nondistended, normoactive bowel sounds, non-tender, non- distended and no masses; Negative for hepatosplenomegaly Back/Spine Back/Spine Narrative: Inspection is normal. Extremity General Extremety ED: Negative for tenderness Neuro No oriented x3 Sensorium / Orientation: Negative for alert Psych Psych Narrative: Unable to determine Appearance: Negative for unkempt Skin no wounds and skin turgor normal General Skin Exam: pallor; Negative for jaundice MDM MDM MDM Narrative Medical decision making narrative: Since his CT and chest x-ray were obtained yesterday these will not be repeated. Since urine revealed 2+ bacteria will obtain A urine specimen and culture. Will obtain appropriate blood work to assess for endorgan dysfunction. Because yesterday's urine did reveal bacteria will treat with ceftriaxone. Patient was discharged with prescription for cephalexin. Of note yesterday patient was not tachycardic. History & Record Review Discussion w/independent historian: Other Additional record(s) reviewed:: Prior outpatient record (Seen by Dr. Kadie Preston for dysmenorrhea December and December 2022. Dr. Soliz for IUD.), Prior ED visit (Documented HPI narrative and MDM narrative) and Prior labs Lab Data Labs: Laboratory Results - last 24 hr 04/19/24 04/19/24 10:20 10:30 WBC 10.8 RBC 4.23 Hgb 13.4 Hct 40.4 MCV 95.5 MCH 31.7 MCHC 33.2 RDW Std Deviation 40.4 RDW Coeff of Sotero 11.6 Plt Count 283 MPV 11.5 Immature Gran % (Auto) 0.400 Neut % (Auto) 81.1 H Lymph % (Auto) 13.0 L [place] % (Auto) 5.3 Eos % (Auto) 0.0 Baso % (Auto) 0.2 Absolute Neuts (auto) 8.7 H Absolute Lymphs (auto) 1.40 Nucleated RBC % 0 Sodium 142 Potassium 3.8 Chloride 109 H Carbon Dioxide 28.0 Anion Gap 5 BUN 19 H Creatinine 0.70 Estim Creat Clear Calc 106.71 Est GFR (MDRD) Af Amer 121 Est GFR (MDRD) Non-Af 100 BUN/Creatinine Ratio 27.1 H Glucose 115 H Lactic Acid 1.2 Calcium 9.3 Total Bilirubin 0.40 AST 44 H ALT 70 H Alkaline Phosphatase 91 Total Protein 8.0 Albumin 4.3 Globulin 3.7 Albumin/Globulin Ratio 1.2 Urine Color Yellow Urine Clarity Sl. Cloudy Urine pH 7.0 Ur Specific [place] 1.015 Urine Protein 15 H Urine Glucose (UA) Normal Urine Ketones 5 H Urine Occult Blood Negative Urine Nitrite Negative Urine Bilirubin Negative Urine Urobilinogen 1 H Ur Leukocyte Esterase Negative Urine RBC 0 SEEN Urine WBC 0-5 SEEN Ur Squamous Epith Cells 0-5 SEEN Ur Transition Epith Cell 0-5 SEEN Urine Bacteria 2+ Urine Mucus 2+ Urine reveals 0-5 WBCs and 2+ bacteria. Macro is positive for protein, ketones. With change in mental status not eating now nausea vomiting diarrhea will contact hospitalist for 23 observation. Patient did receive a dose of Rocephin. Discharge Plan Triage Chief Complaint: Nausea/Vomiting/Diarrhea ED Provider: Ant Khan Dx/Rx/DC Orders Clinical Impression: Acute alteration in mental status, Bacteriuria, Nausea vomiting and diarrhea Prescriptions: No Action gabapentin 400 MG capsule 400 mg PO TID carbamazepine 200 MG tablet extended release 12 hr 400 mg PO BID lorazepam 1 MG tablet 1 mg PO BID lorazepam 0.5 MG tablet 0.5 mg PO 1600 loratadine [Allergy Relief (loratadine)] 10 MG tablet 10 mg PO DAILY polyethylene glycol 3350 [Miralax] 17 gram Powder In Packet 17 g PO DAILY acetaminophen 500 mg Tablet 500 mg PO TID naproxen 500 mg Tablet 500 mg PO BID oxycodone 5 mg tablet 5 mg PO Q8H PRN (Reason: severe pain) 7 Days Qty: 21 0RF quetiapine 50 mg tablet 50 mg PO TID Patient Comments: 100mg at night zolpidem 10 mg tablet 10 mg PO QHS PRN PRN (Reason: sleep) cephalexin 500 mg capsule 500 mg PO Q6 Qty: 20 0RF ondansetron 4 mg tablet,disintegrating 4 mg PO Q8H PRN PRN (Reason: Nausea) Qty: 10 0RF Primary Care Provider: Roland Johnson Referrals: Roland Johnson MD [Primary Care Provider] - Print Language: Albanian Disposition Disposition: Acute Care Hospital [facility]
[2024-04-19] MEDS: 0.9% Normal Saline (1000mL) 1,000 ML 1000 ML IV (10:22)
[2024-04-19] MEDS: Ceftriaxone 1 GM/50 ML BAG IV (10:39)
[2024-04-19 10:45] LABS: Absolute Neutrophil Count 8.7 X10^3/uL (2.0-7.7); Basophil# 0.02 X10^3/uL; Basophil% 0.2 % (0-1); Hematocrit 40.4 % (37-47); Hemoglobin 13.4 g/dL (12.0-15.0); Mean Corp Hgb Conc 33.2 g/dL (32-36); Mean Corpuscular Hgb 31.7 pg (27.0-32.0); Mean Corpuscular Volume 95.5 fL (81-99); Mean Platelet Vol. 11.5 fl (6.2-12.0); Monocyte# 0.57 X10^3/uL; Monocyte% 5.3 % (0-10); NRBC Flagged by Analyzer 0 % (0-5); Neutrophil # 8.73 X10^3/uL (2.7-7.7); Neutrophil % 81.1 % (47-70); Platelet Count 283 K/mm3 (150-450); RBC Distribution Width CV 11.6 % (11.6-14.6); RBC Distribution Width SD 40.4 fl (35.1-43.9); Red Blood Count 4.23 M/mm3 (4.2-5.4); White Blood Count 10.8 K/mm3 (4.4-11.0)
[2024-04-19 11:05] LABS: Red Blood Cells-Urine 0 SEEN /hpf (0-5)
[2024-04-19 11:07] LABS: ALB/GLOB Ratio 1.2 RATIO (0.9-2.4); AST(SGOT) 44 U/L (15-37); Alanine Aminotransfer ALT/SGPT 70 U/L (13-56); Albumin, Serum 4.3 g/dL (3.2-5.0); Alkaline Phosphatase 91 U/L (45-117); Anion Gap 5 (5-15); BUN 19 mg/dL (7-18); BUN/Creat Ratio 27.1 RATIO (10-20); Calcium,Total 9.3 mg/dL (8.5-10.1); Chloride 109 mmol/L (98-107); EST Glomerular Filtration Rate 100 mL/min (>60); Est Glom Filt Rate - Afr Amer 121 mL/min (>60); Estimated Creatinine Clearance 106.71 ml/min; Globulin 3.7 g/dL (2.2-4.2); Glucose 115 mg/dL (74-106); Potassium 3.8 mmol/L (3.5-5.1); Sodium Level 142 mmol/L (136-145)
[2024-04-19 11:07] LABS: Color, Urine Yellow (Yellow); Glucose, Dipstick Normal (Normal); Ketone-Dipstick 5 mg/dl (Negative); Leukocyte Esterase-Dipstick Negative /ul (Negative); Nitrite-Dipstick Negative (Negative); Occult Blood-Urine Negative /ul (Negative); Protein-Dipstick 15 mg/dl (Negative); Specific Gravity, Urine 1.015 (1.002-1.030); Urine Bilirubin Dipstick Negative (Negative); Urine Clarity Sl. Cloudy (Clear); Urine Urobilinogen 1 mg/dl (Normal)
[2024-04-19 11:14] LABS: Lactic Acid 1.2 mmol/L (0.4-1.9)
[2024-04-19 11:15] LABS: Bacteria 2+ /hpf (None Seen); Mucous, Urine 2+ /hpf (<or=2+)
[2024-04-19 11:16] LABS: Squamous Epithelial Cells - UA 0-5 SEEN /hpf (5-10); White Blood Cells 0-5 SEEN /hpf (0-5)
[2024-04-19 11:19] LABS: Transitional Epithelial - Ur 0-5 SEEN /hpf (0-5)
--- NOTE | 2024-04-19 12:02 | NURSING ---
MED SURG OBS TERELETSJAYASHREE ALTERED MENTAL STATUS, DEHYDRATION, CYSTITIS
[2024-04-19] MEDS: 0.9% Normal Saline (1000mL) 1,000 ML 125 ML IV ×2 (13:31→23:17)
--- NOTE | 2024-04-19 17:59 | PCM.HP.STD ---
HPI - General General Date of Admission: 04/19/24 Date of Service: 04/19/24 Chief Complaint: Urinary tract infection HPI Narrative MINH BAEZA, is a 39 F who presents to the emergency room at [facility] a jail with complaints of vomiting, loose stool, and lethargy. Patient had been diagnosed with a urinary tract infection yesterday in the ER here and was given a prescription for antibiotics. Patient speaks very little normally, she is blind and has cognitive impairment. Workup in the emergency room included a CBC which was unremarkable, patient's chemistry was remarkable for BUN of 19 and a chloride of 109. AST and ALT were slightly elevated. Urinalysis had +2 bacteria but 0-5 white cells and 0 red cells. Patient will be placed in observation status on MedSurg 3 for cystitis and dehydration, IV fluids will be given and she will be kept on Rocephin. [facility] Medical History Kyphoscoliosis Impulse control disorder Bladder disease Restless legs Heartburn Non-smoker History of use of contraceptive intrauterine device (IUD) Acute diarrhea Profound mental handicap Seizures Blind Home Medications ?Medication ?Instructions ?Recorded ?Last Taken ?Type gabapentin 400 mg capsule 400 mg PO TID 11/18/14 Unknown History lorazepam 1 mg tablet 1 mg PO BID 11/18/14 Unknown History loratadine 10 mg tablet (Allergy 10 mg PO DAILY 02/05/18 Unknown History Relief (loratadine)) lorazepam 0.5 mg tablet 0.5 mg PO 1600 02/05/18 Unknown History acetaminophen 500 mg tablet 500 mg PO TID 01/09/23 Unknown History naproxen 500 mg tablet 500 mg PO BIDCM 01/09/23 Unknown History polyethylene glycol 3350 17 gram 17 g PO DAILY 01/09/23 Unknown History oral powder packet (Miralax) quetiapine 50 mg tablet 50 mg PO BID 10/09/23 Unknown History zolpidem 10 mg tablet 10 mg PO QHS PRN sleep 04/18/24 Unknown History carbamazepine 400 mg 400 mg PO BID 04/19/24 Unknown History tablet,extended release,12 hr docusate sodium 50 mg/5 mL oral 100 mg PO DAILY 04/19/24 Unknown History liquid olanzapine 10 mg tablet 10 mg PO QHS 04/19/24 Unknown History olanzapine 2.5 mg tablet (Zyprexa) 2.5 mg PO BID PRN MOOD DISORDER 04/19/24 Unknown History quetiapine 100 mg tablet 100 mg PO QHS 04/19/24 Unknown History Allergy/AdvReac Type Severity Reaction Status Date / Time No Known Allergies Allergy Verified 04/19/24 10:12 Surgical History History of hysterectomy History of surgery Social History (Updated 04/19/24 @ 10:[address] Ant Khan MD) household members: other details: half-way Smoking Status: Never smoker ROS ROS Narrative Review of systems was unobtainable due to cognitive impairment Vital Signs Vital Signs Vital Signs: 04/19/24 09:58 04/19/24 10:03 04/19/24 11:03 Temperature 97.9 F 97.9 F 97.8 F Temperature Source Temporal Temporal Temporal Pulse Rate 101 H 101 H 90 Respiratory Rate 16 16 14 Respiratory Effort Respiratory Depth Respiratory Pattern Blood Pressure 142/81 H 142/81 H 122/74 H Blood Pressure Mean 101 101 90 Blood Pressure Source Blood Pressure Position Blood Pressure Location Pulse Ox 99 99 100 Oxygen Delivery Method Room Air Room Air Room Air 04/19/24 12:00 04/19/24 12:01 04/19/24 13:30 Temperature 98 F 98 F Temperature Source Temporal Pulse Rate 85 84 Respiratory Rate 13 14 Respiratory Effort Normal Non-Labored Respiratory Depth Normal Respiratory Pattern Normal Blood Pressure 119/67 119/67 Blood Pressure Mean 84 84 Blood Pressure Source Blood Pressure Position Blood Pressure Location Pulse Ox 100 100 100 Oxygen Delivery Method Room Air Room Air 04/19/24 13:45 04/19/24 16:51 Temperature 97 F L 97.5 F L Temperature Source Temporal Axillary Pulse Rate 84 86 Respiratory Rate 18 18 Respiratory Effort Respiratory Depth Respiratory Pattern Blood Pressure 124/90 H 125/76 H Blood Pressure Mean 101 92 Blood Pressure Source Monitor Monitor Blood Pressure Position Sitting Sitting Blood Pressure Location Right Forearm Right Forearm Pulse Ox 100 99 Oxygen Delivery Method Room Air Room Air Weight Weight: 70.6 kg Body Mass Index (BMI) 27.6 Physical Exam Const alert Constitutional Narrative: Patient is nonverbal, she does not follow commands or carry on any conversation General Appearance: well developed Orientation / Consciousness: awake HEENT normocephalic and head/scalp atraumatic Eyes PERRL, EOMs intact bilaterally and conjunctivae normal Neck no JVD, thyroid normal and no carotid bruits General: trachea midline Resp normal respiratory effort, no retractions, no use of accessory muscles and clear to auscultation bilaterally Auscultation: Negative for rales, rhonchi or wheezes Cardio regular rate, regular rhythm, S1 normal heart sound, S2 normal heart sound, no murmurs, no rub and no gallops GI normal to inspection, nondistended, normoactive bowel sounds, soft to palpation, non-tender and non-distended Extremity no clubbing, cyanosis or edema Skin no rashes or lesions noted General Skin Exam: no breakdown Neuro CN's II-XII intact bilaterally, no focal motor deficits and no sensory deficits noted Neuro Narrative: Patient is nonverbal Sensorium / Orientation: awake and alert Psych Psych Narrative: Patient is nonverbal Results Lab / Micro Data 04/19/24 10:20 04/19/24 10:20 Labs: Laboratory Results - last 24 hr 04/19/24 10:20: WBC 10.8, RBC 4.23, Hgb 13.4, Hct 40.4, MCV 95.5, MCH 31.7, MCHC 33.2, RDW Std Deviation 40.4, RDW Coeff of Sotero 11.6, Plt Count 283, MPV 11.5, Immature Gran % (Auto) 0.400, Neut % (Auto) 81.1 H, Lymph % (Auto) 13.0 L, Wood % (Auto) 5.3, Eos % (Auto) 0.0, Baso % (Auto) 0.2, Absolute Neuts (auto) 8.7 H, Absolute Lymphs (auto) 1.40, Nucleated RBC % 0, Sodium 142, Potassium 3.8, Chloride 109 H, Carbon Dioxide 28.0, Anion Gap 5, BUN 19 H, Creatinine 0.70, Estim Creat Clear Calc 106.71, Est GFR (MDRD) Af Amer 121, Est GFR (MDRD) Non-Af 100, BUN/Creatinine Ratio 27.1 H, Glucose 115 H, Lactic Acid 1.2, Calcium 9.3, Total Bilirubin 0.40, AST 44 H, ALT 70 H, Alkaline Phosphatase 91, Total Protein 8.0, Albumin 4.3, Globulin 3.7, Albumin/Globulin Ratio 1.2 04/19/24 10:30: Urine Color Yellow, Urine Clarity Sl. Cloudy, Urine pH 7.0, Ur Specific [place] 1.015, Urine Protein 15 H, Urine Glucose (UA) Normal, Urine Ketones 5 H, Urine Occult Blood Negative, Urine Nitrite Negative, Urine Bilirubin Negative, Urine Urobilinogen 1 H, Ur Leukocyte Esterase Negative, Urine RBC 0 SEEN, Urine WBC 0-5 SEEN, Ur Squamous Epith Cells 0-5 SEEN, Ur Transition Epith Cell 0-5 SEEN, Urine Bacteria 2+, Urine Mucus 2+ Assessment & Plan Assessment/Plan (1) Cystitis: PLAN: Plan 1. Acute cystitis-patient was placed into observation status on MedSurg 3, she will be given IV Rocephin, cultures are pending #2 mild dehydration-IV fluid will be administered, labs will be followed #3 altered mental status-it is difficult to determine what the patient's baseline mental status is, she is nonverbal at baseline except for saying a few individual words. #4 cognitive impairment-chronic and profound-complicates care, management, recovery, and prognosis, patient will remain on her current psych medication Total clinical time spent by myself addressing the patient's medical issues, reviewing all of her data, and collaborating with patient's care team: 55 minutes Charges/Coding Visit Charges Inpatient E&M: 93078 Init Hosp L2
[2024-04-19] MEDS: Naproxen 500 MG Tablet PO (18:13)
--- NOTE | 2024-04-19 20:22 | NURSING ---
PT moved to [address] to be closer to nursing station for safety, bed exit on. Nanci, legal guardian updated and appreciative of move as pt is normally ambulatory and needs direction when feeling better. Also left message for [facility].
[2024-04-19] MEDS: QUEtiapine 100 MG Tablet PO (23:17)
[2024-04-19] MEDS: LORazepam 1 MG Tablet PO (23:17)
[2024-04-19] MEDS: Acetaminophen 500 MG Tablet PO (23:17)
[2024-04-19] MEDS: Gabapentin 400 MG Capsule PO (23:17)
[2024-04-19] MEDS: carBAMazepine 200 MG CPMP.12HR 400 MG PO (23:18)
[2024-04-19] MEDS: OLANZapine 10 MG Tablet PO (23:20)
[2024-04-20 03:56] VITALS: BP 112/91; PULSE 96; RESP 18; TEMP 36.7; O2SAT 100
[2024-04-20] MEDS: Acetaminophen 500 MG Tablet PO (07:01)
[2024-04-20] MEDS: QUEtiapine 25 MG Tablet 50 MG PO (07:01)
[2024-04-20] MEDS: Gabapentin 400 MG Capsule PO (07:01)
[2024-04-20] MEDS: Naproxen 500 MG Tablet PO (07:02)
[2024-04-20] MEDS: 0.9% Normal Saline (1000mL) 1,000 ML 125 ML IV (07:03)
--- NOTE | 2024-04-20 09:10 | CASEMGMT ---
Social Work- PABLO spoke with Margarita, legal guardian, who states the plan is to return to the long term. SW left a voicemail for long term staff to coordinate d/c plans today, as physician feels that she is medically ready. JIHAN Dc
[2024-04-20 09:21] LABS: Anion Gap 3 (5-15); BUN 9 mg/dL (7-18); BUN/Creat Ratio 18.7 RATIO (10-20); Calcium,Total 8.3 mg/dL (8.5-10.1); Chloride 114 mmol/L (98-107); Creatinine, Serum 0.48 mg/dL (0.55-1.02); EST Glomerular Filtration Rate 154 mL/min (>60); Est Glom Filt Rate - Afr Amer 187 mL/min (>60); Estimated Creatinine Clearance 151.19 ml/min; Glucose 84 mg/dL (74-106); Potassium 3.7 mmol/L (3.5-5.1); Sodium Level 143 mmol/L (136-145)
[2024-04-20 10:00] VITALS: BP 151/97; PULSE 109; RESP 15; TEMP 36.3; O2SAT 92
[2024-04-20] MEDS: LORazepam 1 MG Tablet PO (10:09)
[2024-04-20] MEDS: Ceftriaxone 1 GM/50 ML BAG IV (10:09)
[2024-04-20] MEDS: carBAMazepine 200 MG CPMP.12HR 400 MG PO (10:09)
[2024-04-20] MEDS: Polyethylene Glycol 3350 17 GM PACKET PO (10:09)
[2024-04-20] MEDS: Ensure Plus High Protein 120 ML LIQUID PO (10:10)
--- NOTE | 2024-04-20 10:20 | DCINST_ITS ---
Discharge Instructions Diet Discharge Diet: No restrictions Activity Discharge Activity: Return to Normal Activity Weight Bearing Status: Full weight bearing Follow Up Care Test Results: Test results from this visit will be discussed in further detail at your follow- up appointment, if applicable. Discharge Plan Admission Admit Date/Time: 04/19/24 12:05 Primary Reason for Your Visit: dehydration, cyst Attending Provider: Bradley Bee Primary Care Provider: Roland Johnson Discharge Orders/Prescriptions Prescriptions: Continued gabapentin 400 MG capsule 400 mg PO TID lorazepam 1 MG tablet 1 mg PO BID lorazepam 0.5 MG tablet 0.5 mg PO 1600 loratadine [Allergy Relief (loratadine)] 10 MG tablet 10 mg PO DAILY polyethylene glycol 3350 [Miralax] 17 gram Powder In Packet 17 g PO DAILY acetaminophen 500 mg Tablet 500 mg PO TID naproxen 500 mg Tablet 500 mg PO BIDCM quetiapine 50 mg tablet 50 mg PO BID Rx Instructions: TAKES 50 MG IN THE MORNING AND AFTERNOON, AND 100MG AT BEDTIME. carbamazepine 400 mg tablet extended release 12 hr 400 mg PO BID quetiapine 100 mg tablet 100 mg PO QHS Rx Instructions: TAKES 50 MG IN THE MORNING AND AFTERNOON, AND 100MG AT BEDTIME. olanzapine 10 mg tablet 10 mg PO QHS olanzapine [Zyprexa] 2.5 mg tablet 2.5 mg PO BID PRN (Reason: MOOD DISORDER) docusate sodium 50 mg/5 mL liquid 100 mg PO DAILY zolpidem 10 mg tablet 10 mg PO QHS PRN (Reason: sleep) Referrals / Follow Up: Roland Johnson MD [Primary Care Provider] - Within 2 Weeks Disposition Disposition (needs filled in before D/C Order can be placed): Home, Self Care
--- NOTE | 2024-04-20 10:27 | PCM.DC.SUM ---
Providers Date of Admission: 04/19/24 Date of Discharge: 04/20/24 Primary Care Physician: Dr. Roland Johnson MD Reason For Visit: CYSTITIS, DEHYDRATION Diagnosis Discharge Diagnosis (1) Cystitis: Status: Acute Code(s): N30.90 - Cystitis, unspecified without hematuria Plan #1 mild dehydration-IV fluid will be administered, labs will be followed #2 altered mental status-it is difficult to determine what the patient's baseline mental status is, she is nonverbal at baseline except for saying a few individual words. #3 Severe cognitive impairment-chronic and profound-complicates care, management, recovery, and prognosis, patient will remain on her current psych medication Acute cystitis was ruled out Total clinical time spent by myself addressing the patient's medical issues, reviewing all of her data, and collaborating with patient's care team: 55 minutes Medications at Discharge Home Medications gabapentin 400 mg capsule 400 mg PO TID 11/18/14 lorazepam 1 mg tablet 1 mg PO BID 11/18/14 loratadine 10 mg tablet (Allergy Relief (loratadine)) 10 mg PO DAILY 02/05/18 lorazepam 0.5 mg tablet 0.5 mg PO 1600 02/05/18 acetaminophen 500 mg tablet 500 mg PO TID 01/09/23 naproxen 500 mg tablet 500 mg PO BIDCM 01/09/23 polyethylene glycol 3350 17 gram oral powder packet (Miralax) 17 g PO DAILY 01/09/23 quetiapine 50 mg tablet 50 mg PO BID 10/09/23 zolpidem 10 mg tablet 10 mg PO QHS PRN sleep 04/18/24 carbamazepine 400 mg tablet,extended release,12 hr 400 mg PO BID 04/19/24 docusate sodium 50 mg/5 mL oral liquid 100 mg PO DAILY 04/19/24 olanzapine 10 mg tablet 10 mg PO QHS 04/19/24 olanzapine 2.5 mg tablet (Zyprexa) 2.5 mg PO BID PRN MOOD DISORDER 04/19/24 quetiapine 100 mg tablet 100 mg PO QHS 04/19/24 Hospital Course Operations None Procedures None Summary of Care Provided Minutes Spent on Discharge: 31 Hospital Course: This 39-year-old white female was brought to the emergency room at [facility] from a longterm, she has a history of profound cognitive impairment, according to the longterm she was not responding appropriately and was not taking antibiotics that had been given the day before for a suspected urinary tract infection. Evaluation in the emergency room showed the patient have a normal white blood cell count, BUN was slightly elevated, urinalysis was remarkable for +2 bacteria but 0-5 WBCs and 0 RBCs were noted in the UA. Patient was placed in observation status on MedSurg 3 for suspected urinary tract infection and dehydration, she was given IV fluids, later that evening she was able to take in liquids and food. The UA which had been done from her previous ER visit showed no growth. Patient received 2 doses of IV antibiotics during her hospital stay. On 04/20/2024, patient was seen and examined: On examination she does not appear to be in any distress, patient shows signs of profound cognitive impairment, she is nonverbal. Vital signs as documented. Skin warm and dry and without overt rashes. Neck without JVD, thyroid appears normal, trachea is midline, neck is supple. Lungs clear, normal air movement was noted. Heart exam notable for regular rhythm, normal sounds and absence of murmurs, rubs or gallops. Abdomen unremarkable and without evidence of organomegaly, masses, or abdominal aortic enlargement, bowel sounds are present in all 4 quadrants, no abdominal tenderness was noted. Extremities nonedematous, no cyanosis was noted, no clubbing was noted. Neuro: Cranial nerves II through XII are grossly intact, no focal motor deficits were noted, sensation to light touch and pinprick is intact, motor exam 5/5 throughout. Psych: Patient was alert, she was nonverbal, she was able to intake food and liquids. On 04/20/2024, patient was felt to be stable for discharge back to her longterm. Patient's urinalysis collected the day before showed gram-positive organisms, this examiner felt that this was probably a contaminant. Weight / BMI Weight Weight: 70.6 kg Body Mass Index (BMI) 27.6 ABG / Lab / Microbiology Data 04/19/24 10:20 04/20/24 08:38 Laboratory: Laboratory Results - last 24 hr 04/19/24 10:20: WBC 10.8, RBC 4.23, Hgb 13.4, Hct 40.4, MCV 95.5, MCH 31.7, MCHC 33.2, RDW Std Deviation 40.4, RDW Coeff of Sotero 11.6, Plt Count 283, MPV 11.5, Immature Gran % (Auto) 0.400, Neut % (Auto) 81.1 H, Lymph % (Auto) 13.0 L, Williams % (Auto) 5.3, Eos % (Auto) 0.0, Baso % (Auto) 0.2, Absolute Neuts (auto) 8.7 H, Absolute Lymphs (auto) 1.40, Nucleated RBC % 0, Sodium 142, Potassium 3.8, Chloride 109 H, Carbon Dioxide 28.0, Anion Gap 5, BUN 19 H, Creatinine 0.70, Estim Creat Clear Calc 106.71, Est GFR (MDRD) Af Amer 121, Est GFR (MDRD) Non-Af 100, BUN/Creatinine Ratio 27.1 H, Glucose 115 H, Lactic Acid 1.2, Calcium 9.3, Total Bilirubin 0.40, AST 44 H, ALT 70 H, Alkaline Phosphatase 91, Total Protein 8.0, Albumin 4.3, Globulin 3.7, Albumin/Globulin Ratio 1.2 04/19/24 10:30: Urine Color Yellow, Urine Clarity Sl. Cloudy, Urine pH 7.0, Ur Specific [place] 1.015, Urine Protein 15 H, Urine Glucose (UA) Normal, Urine Ketones 5 H, Urine Occult Blood Negative, Urine Nitrite Negative, Urine Bilirubin Negative, Urine Urobilinogen 1 H, Ur Leukocyte Esterase Negative, Urine RBC 0 SEEN, Urine WBC 0-5 SEEN, Ur Squamous Epith Cells 0-5 SEEN, Ur Transition Epith Cell 0-5 SEEN, Urine Bacteria 2+, Urine Mucus 2+ 04/20/24 08:38: Sodium 143, Potassium 3.7, Chloride 114 H, Carbon Dioxide 26.0, Anion Gap 3 L, BUN 9, Creatinine 0.48 L, Estim Creat Clear Calc 151.19, Est GFR (MDRD) Af Amer 187, Est GFR (MDRD) Non-Af 154, BUN/Creatinine Ratio 18.7, Glucose 84, Calcium 8.3 L D/C Instructions Discharge Diet: No restrictions Weight Bearing Status: Full weight bearing Meaningful Use Info Meaningful Use Meaningful Use Diagnoses (Choose all that apply): None applicable Ischemic Stroke Statin Dosing Therapy Reference: STATIN DOSE THERAPY REFERENCE: * Patients > 75 years receive moderate or high dose statin therapy. * Patients 75 years or YOUNGER should receive HIGH intensity statin dose unless contraindicated. You will be required to document reason for non-treatment if statin daily dose does not meet guidelines. HIGH DOSE STATIN THERAPY DAILY Atorvastatin > than or = to 40 mg Rosuvastatin > than or = to 20 mg Amlodipine + Atorvastatin > than or = to 2.5/40 mg Ezetimibe + Simvastatin 10/80 mg Simvastatin 80mg Discharge Plan Admission Admit Date/Time: 04/19/24 12:05 Primary Reason for Your Visit: dehydration, cyst Attending Provider: Bradley Bee Primary Care Provider: Roland Johnson Discharge Orders/Prescriptions Prescriptions: Continued gabapentin 400 MG capsule 400 mg PO TID lorazepam 1 MG tablet 1 mg PO BID lorazepam 0.5 MG tablet 0.5 mg PO 1600 loratadine [Allergy Relief (loratadine)] 10 MG tablet 10 mg PO DAILY polyethylene glycol 3350 [Miralax] 17 gram Powder In Packet 17 g PO DAILY acetaminophen 500 mg Tablet 500 mg PO TID naproxen 500 mg Tablet 500 mg PO BIDCM quetiapine 50 mg tablet 50 mg PO BID Rx Instructions: TAKES 50 MG IN THE MORNING AND AFTERNOON, AND 100MG AT BEDTIME. carbamazepine 400 mg tablet extended release 12 hr 400 mg PO BID quetiapine 100 mg tablet 100 mg PO QHS Rx Instructions: TAKES 50 MG IN THE MORNING AND AFTERNOON, AND 100MG AT BEDTIME. olanzapine 10 mg tablet 10 mg PO QHS olanzapine [Zyprexa] 2.5 mg tablet 2.5 mg PO BID PRN (Reason: MOOD DISORDER) docusate sodium 50 mg/5 mL liquid 100 mg PO DAILY zolpidem 10 mg tablet 10 mg PO QHS PRN (Reason: sleep) Referrals / Follow Up: Roland Johnson MD [Primary Care Provider] - Within 2 Weeks Disposition Disposition (needs filled in before D/C Order can be placed): Home, Self Care Charges/Coding Visit Charges Inpatient E&M: 78664 Disch Hosp >30min
--- NOTE | 2024-04-20 11:05 | PHA.DC.MR.R ---
Pharmacy [facility] Reconciliation Pharmacy Service has performed discharge medication reconciliation for this patient. No new medications. The patient's discharge medication list was reviewed for discrepancies and discrepancies were resolved. Medications at Discharge Home Medications gabapentin 400 mg capsule 400 mg PO TID 11/18/14 lorazepam 1 mg tablet 1 mg PO BID 11/18/14 loratadine 10 mg tablet (Allergy Relief (loratadine)) 10 mg PO DAILY 02/05/18 lorazepam 0.5 mg tablet 0.5 mg PO 1600 02/05/18 acetaminophen 500 mg tablet 500 mg PO TID 01/09/23 naproxen 500 mg tablet 500 mg PO BIDCM 01/09/23 polyethylene glycol 3350 17 gram oral powder packet (Miralax) 17 g PO DAILY 01/09/23 quetiapine 50 mg tablet 50 mg PO BID 10/09/23 zolpidem 10 mg tablet 10 mg PO QHS PRN sleep 04/18/24 carbamazepine 400 mg tablet,extended release,12 hr 400 mg PO BID 04/19/24 docusate sodium 50 mg/5 mL oral liquid 100 mg PO DAILY 04/19/24 olanzapine 10 mg tablet 10 mg PO QHS 04/19/24 olanzapine 2.5 mg tablet (Zyprexa) 2.5 mg PO BID PRN MOOD DISORDER 04/19/24 quetiapine 100 mg tablet 100 mg PO QHS 04/19/24
--- NOTE | 2024-04-20 11:28 | CASEMGMT ---
SW called oil field caser to advise of d/c; left voicemail again. PABLO called guardian to advise of d/c as well. Guardian will call halfway staff to let them know. JIHAN Dc
--- NOTE | 2024-04-20 11:33 | CASEMGMT ---
ADVANCE DIRECTIVE VALIDATION Received notice of advance directive validation. Patient does not have a Living Will, as per admission note, though is reported to have a HCPOA. Patient actually has been deemed incompetent a has a legal [facility] of person [facility] Letter of guardianship is on file with Margarita Manning as the legal guardian - [phone]. -JENNY Pandya
--- NOTE | 2024-04-20 12:04 | CASEMGMT ---
Social Work- PABLO called Wilder Vanegas DD, who was closed. nutrition worker is Alena [phone]. PABLO called Clarita and spoke with Verito, who provided a contact number for Carol of [phone]. PABLO called Carol and advised of d/c. Caorl asked PABLO to fax d/c paperwork to nurse. Carol also requested a return to work. PABLO passed this request on to taxonomist. PABLO called bedside nurse to advise. JIHAN Dc
== END 2024-04-20 13:00 | disposition home or self-care (01) ==
LOC: ED 12:30 → MS3 12:38
PROVIDERS: Admitting Provider Internal Medicine; Emergency Provider Emergency Medicine; PCP Family Medicine; Visit Provider Internal Medicine
DX: E86.0 Dehydration (principal); E88.89 Other specified metabolic disorders; R11.2 Nausea with vomiting, unspecified; F63.9 Impulse disorder, unspecified; R19.7 Diarrhea, unspecified; R41.89 Other symptoms and signs involving cognitive functions and awareness; R41.82 Altered mental status, unspecified; H54.7 Unspecified visual loss; F73 Profound intellectual disabilities; Z79.899 Other long term (current) drug therapy
CPT/HCPCS: 80048; 80053; 81001; 83605; 85025; 87040; 87077; 87086; 87088; 87186; 96361; 96365; 96366; 97802; 99221; 99285; J7030; P9612; A4216; G0378

== ENCOUNTER 2024-11-16 09:00 | Emergency (ER) | payer MEDICARE, MEDICAID, SELFPAY ==
[2024-11-16 08:48] VITALS: BP 146/127; PULSE 111; RESP 18; TEMP 35.7; O2SAT 100
--- NOTE | 2024-11-16 08:58 | CT_ITS ---
STUDY: CT ABDOMEN AND PELVIS WITH CONTRAST REASON FOR EXAM: Female, 39 years old. Constipation. Abdominal pain. RADIATION DOSAGE (If Supplied By Facility): CTDIvol = ( 19.39 ) mGy, DLP = ( 1284.71 ) mGycm TECHNIQUE: Transaxial images were obtained from the dome of the diaphragm to the symphysis pubis without oral contrast. IV 100mL Isovue-370 was administered. Sagittal and coronal images were reconstructed. Individualized dose optimization techniques were used for this CT. COMPARISON: Comparison is made with prior study dated October 09, 2023. FINDINGS: The visualized lung bases are unremarkable. The visualized portions of the heart are within normal limits. Normal liver. There is calcification of the gallbladder wall. Normal spleen. Normal pancreas. Normal bilateral adrenal glands. Normal right kidney. Normal left kidney. Normal visualized stomach. Fluid filled small bowel loops measuring upper limits of normal. Large amount of fecal material is seen in the left hemicolon. Fluid is seen within the right hemicolon. The appendix is visualized and appears normal. Normal abdominal aorta. Normal inferior vena cava. Normal retroperitoneum. Normal urinary bladder. There is absence of the uterus consistent with a prior hysterectomy. Normal abdominal wall. Loss of the normal lumbar lordosis. Stable grade 2 anterolisthesis of L5 on S1 with disc space narrowing and spondylolysis of the pars interarticularis of the L5 vertebrae. CT/Abdomen/Pelvis W IV Cont ONLY IMPRESSION: Findings suggestive constipation with the fluid-filled colon and fluid-filled mildly distended small bowel loops. Calcification of the gallbladder wall. Electronically Signed: Sj Durant MD at 10:05 EST ,
--- NOTE | 2024-11-16 08:59 | EDS_ITS ---
HPI HPI - GI History of Present Illness Chief Complaint: Constipation Narrative Narrative: 39-year-old female past medical history of MRDD, is nonverbal, and partially blind, lives in a care home presents via EMS with concern for UTI and for bowel obstruction. The gospel worker relates history that she has had dark urine and changes in her behavior. She is more agitated. Additionally, she has not had a bowel movement for the last 5 days. 2 days ago she started having nausea and vomiting. She vomited twice today. Of note, she has been seen for constipation in the past. History and physical is limited secondary to her being nonverbal. [facility] Medical History Ketosis Acute dehydration Nausea vomiting and diarrhea Acute alteration in mental status Bacteriuria Kyphoscoliosis Impulse control disorder Bladder disease Restless legs Heartburn Non-smoker History of use of contraceptive intrauterine device (IUD) Acute diarrhea Profound mental handicap Seizures Blind Home Medications ?Medication ?Instructions ?Recorded ?Last Taken ?Type gabapentin 400 mg capsule 400 mg PO TID 11/18/14 Unknown History lorazepam 1 mg tablet 1 mg PO BID 11/18/14 Unknown History loratadine 10 mg tablet (Allergy 10 mg PO DAILY 02/05/18 Unknown History Relief (loratadine)) lorazepam 0.5 mg tablet 0.5 mg PO 1600 02/05/18 Unknown History acetaminophen 500 mg tablet 500 mg PO TID 01/09/23 Unknown History naproxen 500 mg tablet 500 mg PO BIDCM 01/09/23 Unknown History polyethylene glycol 3350 17 gram 17 g PO DAILY 01/09/23 Unknown History oral powder packet (Miralax) quetiapine 50 mg tablet 50 mg PO BID 10/09/23 Unknown History zolpidem 10 mg tablet 10 mg PO QHS PRN sleep 04/18/24 Unknown History carbamazepine 400 mg 400 mg PO BID 04/19/24 Unknown History tablet,extended release,12 hr docusate sodium 50 mg/5 mL oral 100 mg PO DAILY 04/19/24 Unknown History liquid olanzapine 10 mg tablet 10 mg PO QHS 04/19/24 Unknown History olanzapine 2.5 mg tablet (Zyprexa) 2.5 mg PO BID PRN MOOD DISORDER 04/19/24 Unknown History quetiapine 100 mg tablet 100 mg PO QHS 04/19/24 Unknown History docusate sodium 100 mg capsule 100 mg PO BID #20 caps 11/16/24 Unknown Rx (Colace) polyethylene glycol 3350 17 17 g PO BID #238 grams 11/16/24 Unknown Rx gram/dose oral powder (Miralax) Allergy/AdvReac Type Severity Reaction Status Date / Time No Known Allergies Allergy Verified 11/16/24 08:55 Surgical History History of hysterectomy History of surgery Social History household members: other details: halfway Smoking Status: Never smoker ROS ROS ED ROS Narrative Obtained from gospel worker. Positive dark urine. No fevers or chills. Positive nausea and vomiting. No bowel movement for 5 days. Decreased appetite today. Here to be checked for bowel obstruction and UTI. Increased agitation. Review of Systems ROS Unobtainable: due to mental condition EXAM Physical Exam Narrative Exam Narrative: Afebrile. Vital signs noted. Cardiovascular examination reveals mild tachycardia. Lungs clear to auscultation bilaterally. Abdomen is soft without guarding or rebound. Decreased bowel sounds but present. Neurological examination consistent with MRDD. Patient nonverbal. Sitting with legs crossed and rocking back and forth. Const Vital Signs: 11/16/24 08:48 Temperature 96.2 F L Temperature Source Temporal Pulse Rate 111 H Respiratory Rate 18 Blood Pressure 146/127 H Blood Pressure Mean 133 Pulse Ox 100 Oxygen Delivery Method Room Air MDM MDM MDM Narrative Medical decision making narrative: I reviewed the patient's prior ED visits. She had been seen approximately 2 years ago with a diagnosis of constipation. She had a negative CT 7 days earlier than her ED visit. She was prescribed bowel regime. Differential diagnosis includes but not limited to pancreatitis versus bowel obstruction versus fecal retention/impaction. She may have a UTI, and/or be dehydrated. Laboratories will be checked as well as CT with IV contrast. I reviewed her laboratory work and she has slightly elevated white count of 12.1 which I think is nonspecific and may be demargination from her vomiting today. Hemoglobin normal at 13.1 with hematocrit 39.2, platelet count normal at 246. CMP is remarkable for chloride of 111 which I think is nonspecific, BUN of 24 and creatinine 0.69. LFTs are normal. Lipase also normal at 57 so I doubt pancreatitis. Urinalysis did not show signs of infection with 0-5 WBCs. I do not feel antibiotics are indicated. I reviewed the radiology report of the CT of the abdomen pelvis which shows air-fluid levels in the colon and some in the small bowel consistent with constipation. In review of her previous ED visit, she was given Colace, senna, and MiraLAX. I did write prescription for MiraLAX and Colace 100 mg to take twice a day for the next 10 days. I feel she can be discharged to follow-up. She did not require an hCG as she has history of hysterectomy in review of her EMR. 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 Return instructions to the emergency department were reviewed with the staff worker. Disposition is discharged in stable condition. History & Record Review Discussion w/independent historian: Other (Staff worker) Lab Data Attestation: I reviewed the patient's lab results. Labs: Laboratory Results - last 24 hr 11/16/24 09:08 WBC 12.1 H RBC 4.22 Hgb 13.1 Hct 39.2 MCV 92.9 MCH 31.0 MCHC 33.4 RDW Std Deviation 40.5 RDW Coeff of Sotero 11.9 Plt Count 246 MPV 10.7 Immature Gran % (Auto) 0.400 Neut % (Auto) 88.5 H Lymph % (Auto) 3.5 L Williamson % (Auto) 5.8 Eos % (Auto) 1.6 Baso % (Auto) 0.2 Absolute Neuts (auto) 10.7 H Absolute Lymphs (auto) 0.43 L Nucleated RBC % 0 Sodium 140 Potassium 4.4 Chloride 111 H Carbon Dioxide 26.0 Anion Gap 4 L BUN 24 H Creatinine 0.69 Est GFR (MDRD) Af Amer 123 Est GFR (MDRD) Non-Af 101 BUN/Creatinine Ratio 34.8 H Glucose 102 Calcium 8.3 L Total Bilirubin 0.50 AST 33 ALT 48 Alkaline Phosphatase 102 Total Protein 7.3 Albumin 3.7 Globulin 3.6 Albumin/Globulin Ratio 1.0 Lipase 57 Urine Color Yellow Urine Clarity Clear Urine pH 5.0 Ur Specific [place] 1.025 Urine Protein 30 H Urine Glucose (UA) Normal Urine Ketones Negative Urine Occult Blood Negative Urine Nitrite Negative Urine Bilirubin Negative Urine Urobilinogen Normal Ur Leukocyte Esterase 25 H Urine RBC 0 SEEN Urine WBC 0-5 SEEN Ur Squamous Epith Cells 0-5 SEEN Amorphous Sediment 1+ Urine Bacteria 1+ Urine Mucus 0 SEEN Radiography Diagnostic Testing: Clinical Impression(s) from Imaging Studies Abdomen/Pelvis CT 11/16/24 08:58 IMPRESSION: Findings suggestive constipation with the fluid-filled colon and fluid-filled mildly distended small bowel loops. Calcification of the gallbladder wall. Electronically Signed: Sj Durant MD at 10:05 EST , Discharge Plan Triage Chief Complaint: Constipation ED Provider: Rufus Owens Dx/Rx/DC Orders Clinical Impression: Constipation, Nausea and vomiting Instructions: ED Constipation (Adult), ED Vomiting (Adult) Prescriptions: New polyethylene glycol 3350 [Miralax] 17 gram/dose powder 17 g PO BID Qty: 238 0RF docusate sodium [Colace] 100 mg capsule 100 mg PO BID Qty: 20 0RF No Action gabapentin 400 MG capsule 400 mg PO TID lorazepam 1 MG tablet 1 mg PO BID lorazepam 0.5 MG tablet 0.5 mg PO 1600 loratadine [Allergy Relief (loratadine)] 10 MG tablet 10 mg PO DAILY polyethylene glycol 3350 [Miralax] 17 gram Powder In Packet 17 g PO DAILY acetaminophen 500 mg Tablet 500 mg PO TID naproxen 500 mg Tablet 500 mg PO BIDCM quetiapine 50 mg tablet 50 mg PO BID Rx Instructions: TAKES 50 MG IN THE MORNING AND AFTERNOON, AND 100MG AT BEDTIME. carbamazepine 400 mg tablet extended release 12 hr 400 mg PO BID quetiapine 100 mg tablet 100 mg PO QHS Rx Instructions: TAKES 50 MG IN THE MORNING AND AFTERNOON, AND 100MG AT BEDTIME. 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 Follow-up with your primary care provider in 3 to 5 days if not improving. Return with new or worsening symptoms. Print Language: Citizen Of [place] Disposition Disposition: Home, Self Care
[2024-11-16 09:18] LABS: Mucous, Urine 0 SEEN /hpf (<or=2+); Red Blood Cells-Urine 0 SEEN /hpf (0-5)
[2024-11-16 09:35] LABS: Absolute Lymphocyte Count 0.43 X10^3/uL (0.83-4.51); Absolute Neutrophil Count 10.7 X10^3/uL (2.0-7.7); Basophil# 0.02 X10^3/uL; Basophil% 0.2 % (0-1); Eosinophils% 1.6 % (0-5); Hematocrit 39.2 % (37-47); Hemoglobin 13.1 g/dL (12.0-15.0); Lymphocyte # 0.43 X10^3/ul (0.83-4.51); Lymphocyte % 3.5 % (19-41); Mean Corp Hgb Conc 33.4 g/dL (32-36); Mean Corpuscular Volume 92.9 fL (81-99); Mean Platelet Vol. 10.7 fl (6.2-12.0); Monocyte% 5.8 % (0-10); NRBC Flagged by Analyzer 0 % (0-5); Neutrophil # 10.73 X10^3/uL (2.7-7.7); Neutrophil % 88.5 % (47-70); POSITIVE DIFFERENTIAL YES; Platelet Count 246 K/mm3 (150-450); RBC Distribution Width CV 11.9 % (11.6-14.6); RBC Distribution Width SD 40.5 fl (35.1-43.9); Red Blood Count 4.22 M/mm3 (4.2-5.4); White Blood Count 12.1 K/mm3 (4.4-11.0)
[2024-11-16 09:36] LABS: Color, Urine Yellow (Yellow); Glucose, Dipstick Normal (Normal); Ketone-Dipstick Negative (Negative); Leukocyte Esterase-Dipstick 25 /ul (Negative); Nitrite-Dipstick Negative (Negative); Occult Blood-Urine Negative /ul (Negative); Protein-Dipstick 30 mg/dl (Negative); Specific Gravity, Urine 1.025 (1.002-1.030); Urine Bilirubin Dipstick Negative (Negative); Urine Clarity Clear (Clear); Urine Urobilinogen Normal (Normal)
[2024-11-16 09:38] LABS: AST(SGOT) 33 U/L (15-37); Alanine Aminotransfer ALT/SGPT 48 U/L (13-56); Albumin, Serum 3.7 g/dL (3.2-5.0); Alkaline Phosphatase 102 U/L (45-117); Anion Gap 4 (5-15); BUN 24 mg/dL (7-18); BUN/Creat Ratio 34.8 RATIO (10-20); Calcium,Total 8.3 mg/dL (8.5-10.1); Chloride 111 mmol/L (98-107); Creatinine, Serum 0.69 mg/dL (0.55-1.02); EST Glomerular Filtration Rate 101 mL/min (>60); Est Glom Filt Rate - Afr Amer 123 mL/min (>60); Globulin 3.6 g/dL (2.2-4.2); Glucose 102 mg/dL (74-106); Lipase 57 U/L (13-75); Potassium 4.4 mmol/L (3.5-5.1); Protein, Total 7.3 g/dL (6.4-8.2); Sodium Level 140 mmol/L (136-145)
[2024-11-16 09:45] LABS: Squamous Epithelial Cells - UA 0-5 SEEN /hpf (5-10)
[2024-11-16 09:46] LABS: Amorphous Sediment 1+; Bacteria 1+ /hpf (None Seen); White Blood Cells 0-5 SEEN /hpf (0-5)
== END 2024-11-16 11:44 | disposition home or self-care (01) ==
PROVIDERS: Emergency Provider Emergency Medicine; PCP Family Medicine; Visit Provider Emergency Medicine
DX: K59.00 Constipation, unspecified (principal); R11.2 Nausea with vomiting, unspecified; F79 Unspecified intellectual disabilities; E86.0 Dehydration; H54.7 Unspecified visual loss; Z79.899 Other long term (current) drug therapy; Z90.710 Acquired absence of both cervix and uterus
CPT/HCPCS: 74177; 80053; 81001; 83690; 85025; 99285; P9612; Q9967

== ENCOUNTER 2025-01-16 16:35 | Emergency (ER) | payer MEDICARE, MEDICAID, SELFPAY ==
[2025-01-16 16:38] VITALS: BP 148/92; PULSE 80; RESP 16; TEMP 36.8; O2SAT 94
[2025-01-16 16:40] VITALS: BP 148/92; PULSE 84; RESP 16; TEMP 36.8; O2SAT 94
== END 2025-01-16 16:56 | disposition left against medical advice (07) ==
LOC: ED 17:03
PROVIDERS: PCP Family Medicine
DX: M79.89 Other specified soft tissue disorders (principal); Z53.21 Procedure and treatment not carried out due to patient leaving prior to being seen by health care provider

== ENCOUNTER 2025-02-28 10:34 | Emergency (ER) | payer MEDICARE, MEDICAID, SELFPAY ==
[2025-02-28 10:35] VITALS: BP 113/85; PULSE 105; RESP 20; TEMP 36.3; O2SAT 98
[2025-02-28 10:46] VITALS: BMI 28.3
[2025-02-28 11:37] VITALS: BP 107/69; PULSE 98; RESP 16; TEMP 36.6; O2SAT 99
[2025-02-28 12:00] VITALS: BP 104/67; PULSE 90; RESP 14; TEMP 36.3; O2SAT 99
[2025-02-28 12:41] LABS: Bacteria 0 SEEN /hpf (None Seen); Mucous, Urine 0 SEEN /hpf (<or=2+); Red Blood Cells-Urine 0 SEEN /hpf (0-5)
[2025-02-28 12:43] LABS: Color, Urine Yellow (Yellow); Glucose, Dipstick Normal (Normal); Ketone-Dipstick Negative (Negative); Leukocyte Esterase-Dipstick Negative /ul (Negative); Nitrite-Dipstick Negative (Negative); Occult Blood-Urine Negative /ul (Negative); Protein-Dipstick 30 mg/dl (Negative); Specific Gravity, Urine 1.025 (1.002-1.030); Urine Bilirubin Dipstick Negative (Negative); Urine Clarity Clear (Clear); Urine Urobilinogen Normal (Normal)
[2025-02-28] MEDS: Phenazopyridine 95 MG Tablet 190 MG PO (12:53)
[2025-02-28 13:12] LABS: Squamous Epithelial Cells - UA 0-5 SEEN /hpf (5-10); White Blood Cells 0-5 SEEN /hpf (0-5)
--- NOTE | 2025-02-28 13:40 | RAD_ITS ---
PROCEDURE: ABDOMEN SINGLE VIEW (PORTABLE) 02/28/2025 REASON FOR EXAM: ABDOMINAL PAIN TECHNIQUE: Single view abdomen. COMPARISON: None FINDINGS: There is gas and stool throughout the colon with rectal distention, consistent with constipation. The small bowel loops are not distended. There are no air-fluid levels. 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 There is no visible renal stone. There is dextroscoliosis of the thoracolumbar junction. There is no acute bony abnormality. RAD/Abdomen Single View (Portable) IMPRESSION: There is gas and stool throughout the colon with rectal distention, consistent with constipation. There is a 2.7 cm calcification in the right upper quadrant consistent with a p orcelain gallbladder. Reading Location: [facility]
--- NOTE | 2025-02-28 14:45 | EX.ED.DYSGE1 ---
HPI History of Present Illness Chief Complaint: Complaint Informant: other ([facility] staff) Narrative Narrative: 40-year-old female with history of alcohol syndrome who lives in a alf is presenting to the emergency room with possible urinary retention. Family states that they recently had urinary retention had a catheter followed up with urology and had it removed. They wonder if she could have a UTI. They states that last night she was up all night throwing furniture. Patient cannot really communicate how she feels. Did not note that she has not had any fever. She does harris with occasional constipation but has been moving her bowels. Nursing notes that they were not able to do a complete bladder scan but noted that she seemed to have urinary retention when they tried to do so and placed a catheter with about 800 cc of urine out [facility] Medical History Ketosis Acute dehydration Nausea vomiting and diarrhea Acute alteration in mental status Bacteriuria Kyphoscoliosis Impulse control disorder Bladder disease Restless legs Heartburn Non-smoker History of use of contraceptive intrauterine device (IUD) Acute diarrhea Profound mental handicap Seizures Blind Home Medications ?Medication ?Instructions ?Recorded ?Last Taken ?Type gabapentin 400 mg capsule 400 mg PO TID 11/18/14 Unknown History lorazepam 1 mg tablet 1 mg PO BID 11/18/14 Unknown History loratadine 10 mg tablet (Allergy 10 mg PO DAILY 02/05/18 Unknown History Relief (loratadine)) lorazepam 0.5 mg tablet 0.5 mg PO 1600 02/05/18 Unknown History acetaminophen 500 mg tablet 500 mg PO TID 01/09/23 Unknown History naproxen 500 mg tablet 500 mg PO BIDCM 01/09/23 Unknown History polyethylene glycol 3350 17 gram 17 g PO DAILY 01/09/23 Unknown History oral powder packet (Miralax) quetiapine 50 mg tablet 50 mg PO BID 10/09/23 Unknown History zolpidem 10 mg tablet 10 mg PO QHS PRN sleep 04/18/24 Unknown History carbamazepine 400 mg 400 mg PO BID 04/19/24 Unknown History tablet,extended release,12 hr docusate sodium 50 mg/5 mL oral 100 mg PO DAILY 04/19/24 Unknown History liquid olanzapine 10 mg tablet 10 mg PO QHS 04/19/24 Unknown History olanzapine 2.5 mg tablet (Zyprexa) 2.5 mg PO BID PRN MOOD DISORDER 04/19/24 Unknown History quetiapine 100 mg tablet 100 mg PO QHS 04/19/24 Unknown History docusate sodium 100 mg capsule 100 mg PO BID #20 caps 11/16/24 Unknown Rx (Colace) polyethylene glycol 3350 17 17 g PO BID #238 grams 11/16/24 Unknown Rx gram/dose oral powder (Miralax) cephalexin 500 mg capsule 500 mg PO BID 7 days #14 caps 02/28/25 Unknown Rx Allergy/AdvReac Type Severity Reaction Status Date / Time No Known Allergies Allergy Verified 02/28/25 10:34 Surgical History History of hysterectomy History of surgery Social History household members: other details: [facility] Smoking Status: Never smoker ROS ROS ED Review of Systems ROS Unobtainable: due to mental status EXAM Physical Exam Narrative Exam Narrative: Patient is redirectable by alf staff. She occasionally flails on the bed. Const Vital Signs: 02/28/25 10:35 02/28/25 11:37 02/28/25 12:00 Temperature 97.3 F L 97.8 F 97.4 F L Temperature Source Temporal Temporal Temporal Pulse Rate 105 H 98 90 Respiratory Rate 20 H 16 14 Blood Pressure 113/85 H 107/69 104/67 Blood Pressure Mean 94 81 79 Pulse Ox 98 99 99 Oxygen Delivery Method Room Air Room Air Room Air Positive well nourished and well developed General Appearance ED: well developed HEENT Reports normocephalic, head/scalp atraumatic and moist mucous membranes Eyes PERRL and EOMs intact bilaterally Neck no lymphadenopathy, supple and no JVD Resp normal respiratory effort and clear to auscultation bilaterally Cardio regular rate, regular rhythm and no murmurs GI GI Narrative: The abdomen is soft. I am able to palpate without any guarding or rebound. Palpation: soft Narrative: Heaton catheter present. Nursing does not report any significant excoriations or lesions in the vaginal region. Back/Spine no CVA tenderness and normal ROM Extremity normal to inspection General Extremety ED: Negative for edema General Extremity: Negative for edema Neuro Sensorium / Orientation: alert Motor Exam: strength 5/5 throughout Psych Psych Narrative: Unable to assess Skin no rashes or lesions noted and no wounds MDM MDM MDM Narrative Medical decision making narrative: Differential diagnosis includes but not limited to urinary retention UTI kidney stone volvulus small bowel obstruction patient was dehydration Heaton catheter was placed by nursing with 800 cc removed. On my examination the bag was up to about 1000 cc. Urine was sent and is negative for evidence of infection. My independent are potation of the single view abdominal x-ray is no evidence of volvulus or small bowel obstruction. There are some calcification seen of the gallbladder. Patient will be discharged home with Heaton catheter. I will write for some Keflex and would recommend urology follow-up. I would recommend also surgical follow-up for the gallbladder findings. History & Record Review Discussion w/independent historian: Patient Lab Data Attestation: I reviewed the patient's lab results. Labs: Laboratory Results - last 24 hr 02/28/25 11:05 Urine Color Yellow Urine Clarity Clear Urine pH 6.0 Ur Specific [place] 1.025 Urine Protein 30 H Urine Glucose (UA) Normal Urine Ketones Negative Urine Occult Blood Negative Urine Nitrite Negative Urine Bilirubin Negative Urine Urobilinogen Normal Ur Leukocyte Esterase Negative Urine RBC 0 SEEN Urine WBC 0-5 SEEN Ur Squamous Epith Cells 0-5 SEEN Urine Bacteria 0 SEEN Urine Mucus 0 SEEN Radiography Diagnostic Testing: Clinical Impression(s) from Imaging Studies KUB X-Ray 02/28/25 13:40 IMPRESSION: There is gas and stool throughout the colon with rectal distention, consistent with constipation. 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 Reading Location: [facility] Discharge Plan Triage Chief Complaint: Complaint ED Provider: Preston Sanchez Dx/Rx/DC Orders Clinical Impression: Acute urinary retention Instructions: ED Urinary Retention, Female Prescriptions: New cephalexin 500 mg capsule 500 mg PO BID 7 Days Qty: 14 0RF No Action gabapentin 400 MG capsule 400 mg PO TID lorazepam 1 MG tablet 1 mg PO BID lorazepam 0.5 MG tablet 0.5 mg PO 1600 loratadine [Allergy Relief (loratadine)] 10 MG tablet 10 mg PO DAILY polyethylene glycol 3350 [Miralax] 17 gram Powder In Packet 17 g PO DAILY acetaminophen 500 mg Tablet 500 mg PO TID naproxen 500 mg Tablet 500 mg PO BIDCM quetiapine 50 mg tablet 50 mg PO BID Rx Instructions: TAKES 50 MG IN THE MORNING AND AFTERNOON, AND 100MG AT BEDTIME. carbamazepine 400 mg tablet extended release 12 hr 400 mg PO BID quetiapine 100 mg tablet 100 mg PO QHS Rx Instructions: TAKES 50 MG IN THE MORNING AND AFTERNOON, AND 100MG AT BEDTIME. olanzapine 10 mg tablet 10 mg PO QHS olanzapine [Zyprexa] 2.5 mg tablet 2.5 mg PO BID PRN (Reason: MOOD DISORDER) docusate sodium 50 mg/5 mL liquid 100 mg PO DAILY zolpidem 10 mg tablet 10 mg PO QHS PRN (Reason: sleep) polyethylene glycol 3350 [Miralax] 17 gram/dose powder 17 g PO BID Qty: 238 0RF docusate sodium [Colace] 100 mg capsule 100 mg PO BID Qty: 20 0RF Stand Alone Forms: ED Work / School Excuse Primary Care Provider: Roland Johnson Referrals: Krystian Wei MD [Med Staff - Active Staff] - (for surgery) Ilan Lynch MD [Med Staff - Active Staff] - 3-5 Days Roland Johnson MD [Primary Care Provider] - Activity Restrictions/Additional Instructions: In addition to following up with urology for the Heaton catheter you may also wish to follow-up with general surgery. Noted on your abdominal x-ray was calcification of the gallbladder called a porcelain gallbladder. Often times this needs surgical evaluation before it becomes symptomatic. Print Language: [place] Disposition Disposition: Home, Self Care
[2025-02-28 14:52] VITALS: BP 124/81; PULSE 80; RESP 18; TEMP 36.4; O2SAT 95
== END 2025-02-28 14:54 | disposition home or self-care (01) ==
PROVIDERS: Emergency Provider Emergency Medicine; PCP Family Medicine; Visit Provider Emergency Medicine
DX: R33.9 Retention of urine, unspecified (principal); Q86.0 Fetal alcohol syndrome (dysmorphic); Z79.899 Other long term (current) drug therapy; Z90.710 Acquired absence of both cervix and uterus
CPT/HCPCS: 74018; 81001; 99282; A4216

== ENCOUNTER 2025-03-04 10:17 | Emergency (ER) | payer MEDICARE, MEDICAID, SELFPAY ==
[2025-03-04 10:18] VITALS: RESP 18; TEMP 35.3; BMI 27.4
--- NOTE | 2025-03-04 10:23 | EX.ED.DYSGE1 ---
HPI History of Present Illness Chief Complaint: Complaint Informant: SNF (long-term staff) Limited: other (MRDD) Onset/Context/Timing Onset: Today Context: Sudden Onset Timing: Continuous Worsened by: Unknown Relieved by: Unknown Narrative Narrative: Patient presents after pulling her Heaton catheter out this morning. Staff states that this occurred around 2 AM. Staff states that the patient has been agitated and complaining of pain. Staff denies any fevers or chills. Staff denies any nausea or vomiting. Patient has a history of MRDD and is a poor informant. [facility] Medical History (Updated 03/04/25 @ 11:[address] Lex Abreu, DO) Ketosis Acute dehydration Nausea vomiting and diarrhea Acute alteration in mental status Bacteriuria Kyphoscoliosis Impulse control disorder Bladder disease Restless legs Heartburn Non-smoker History of use of contraceptive intrauterine device (IUD) Acute diarrhea Profound mental handicap Seizures Blind Home Medications ?Medication ?Instructions ?Recorded ?Last Taken ?Type gabapentin 400 mg capsule 400 mg PO TID 11/18/14 Unknown History lorazepam 1 mg tablet 1 mg PO BID 11/18/14 Unknown History loratadine 10 mg tablet (Allergy 10 mg PO DAILY 02/05/18 Unknown History Relief (loratadine)) lorazepam 0.5 mg tablet 0.5 mg PO 1600 02/05/18 Unknown History acetaminophen 500 mg tablet 500 mg PO TID 01/09/23 Unknown History naproxen 500 mg tablet 500 mg PO BIDCM 01/09/23 Unknown History polyethylene glycol 3350 17 gram 17 g PO DAILY 01/09/23 Unknown History oral powder packet (Miralax) quetiapine 50 mg tablet 50 mg PO BID 10/09/23 Unknown History zolpidem 10 mg tablet 10 mg PO QHS PRN sleep 04/18/24 Unknown History carbamazepine 400 mg 400 mg PO BID 04/19/24 Unknown History tablet,extended release,12 hr docusate sodium 50 mg/5 mL oral 100 mg PO DAILY 04/19/24 Unknown History liquid olanzapine 10 mg tablet 10 mg PO QHS 04/19/24 Unknown History olanzapine 2.5 mg tablet (Zyprexa) 2.5 mg PO BID PRN MOOD DISORDER 04/19/24 Unknown History quetiapine 100 mg tablet 100 mg PO QHS 04/19/24 Unknown History docusate sodium 100 mg capsule 100 mg PO BID #20 caps 11/16/24 Unknown Rx (Colace) polyethylene glycol 3350 17 17 g PO BID #238 grams 11/16/24 Unknown Rx gram/dose oral powder (Miralax) cephalexin 500 mg capsule 500 mg PO BID 7 days #14 caps 02/28/25 Unknown Rx hydrocodone-acetaminophen 5-325mg 1 tab PO Q6H PRN PRN Pain 3 days 03/04/25 Unknown Rx 5mg-325mg #10 TABLETS Allergy/AdvReac Type Severity Reaction Status Date / Time No Known Allergies Allergy Verified 03/04/25 10:18 Surgical History History of hysterectomy History of surgery Social History household members: other details: long-term Smoking Status: Never smoker ROS ROS ED Review of Systems ROS Unobtainable: due to mental condition Constitutional Constitutional ED: Denies chills or fever(s) ENT ENT ED: Denies rhinorrhea Respiratory/Chest Respiratory/Chest: Denies cough or dyspnea Gastrointestinal Gastrointestinal: Denies nausea or vomiting Integumentary Denies abscess or rash Neurologic Neurologic: Denies weakness Allergic/Immunologic Allergic/Immunologic ED: Denies urticaria EXAM Physical Exam Const Vital Signs: 03/04/25 10:18 03/04/25 11:02 Temperature 95.5 F L Temperature Source Temporal Pulse Rate 83 Respiratory Rate 18 20 H Oxygen Delivery Method Room Air Room Air Positive well nourished and well developed Constitutional Narrative: BMI is 28.0 General Appearance ED: well developed and NAD HEENT Reports moist mucous membranes Neck supple and no JVD Resp normal respiratory effort and clear to auscultation bilaterally Cardio regular rate and regular rhythm GI non-distended Palpation: soft Extremity normal to inspection General Extremety ED: Negative for edema General Extremity: Negative for edema Neuro CN's II-XII intact bilaterally and no sensory deficits noted Sensorium / Orientation: alert Motor Exam: strength 5/5 throughout MDM MDM MDM Narrative Medical decision making narrative: Differential diagnosis includes urinary tract infection, and urinary retention. Urinalysis will be obtained to assess for urinary tract infection and hematuria. History & Record Review Additional record(s) reviewed:: Prior ED visit and Prior labs Lab Data Attestation: I reviewed the patient's lab results. Lab results narrative: Urinalysis was reviewed. There is no evidence of urinary tract infection or hematuria. Labs: Laboratory Results - last 24 hr 03/04/25 10:55 Urine Color Yellow Urine Clarity Clear Urine pH 5.0 Ur Specific [place] 1.020 Urine Protein 15 H Urine Glucose (UA) Normal Urine Ketones Negative Urine Occult Blood Negative Urine Nitrite Negative Urine Bilirubin Negative Urine Urobilinogen Normal Ur Leukocyte Esterase Negative Urine RBC 0 SEEN Urine WBC 0-5 SEEN Ur Squamous Epith Cells 0-5 SEEN Urine Bacteria RARE Urine Mucus RARE Treatment and Re-Evaluation :: Heaton catheter will be placed for urinary retention. Patient was given a dose of [place] here. Caregiver was advised of the findings. Caregiver was instructed to follow-up with urology as scheduled. Caregiver understood and was agreeable with the plan. All questions were answered. Discharge Plan Triage Chief Complaint: Complaint ED Provider: Lex Abreu Dx/Rx/DC Orders Clinical Impression: Acute urinary retention, Blind, Profound mental handicap Instructions: ED Heaton Catheter, Care Prescriptions: New hydrocodone-acetaminophen 5-325 mg tablet 1 tab PO Q6H PRN PRN (Reason: Pain) 3 Days Qty: 10 0RF No Action gabapentin 400 MG capsule 400 mg PO TID lorazepam 1 MG tablet 1 mg PO BID lorazepam 0.5 MG tablet 0.5 mg PO 1600 loratadine [Allergy Relief (loratadine)] 10 MG tablet 10 mg PO DAILY polyethylene glycol 3350 [Miralax] 17 gram Powder In Packet 17 g PO DAILY acetaminophen 500 mg Tablet 500 mg PO TID naproxen 500 mg Tablet 500 mg PO BIDCM quetiapine 50 mg tablet 50 mg PO BID Rx Instructions: TAKES 50 MG IN THE MORNING AND AFTERNOON, AND 100MG AT BEDTIME. carbamazepine 400 mg tablet extended release 12 hr 400 mg PO BID quetiapine 100 mg tablet 100 mg PO QHS Rx Instructions: TAKES 50 MG IN THE MORNING AND AFTERNOON, AND 100MG AT BEDTIME. olanzapine 10 mg tablet 10 mg PO QHS olanzapine [Zyprexa] 2.5 mg tablet 2.5 mg PO BID PRN (Reason: MOOD DISORDER) docusate sodium 50 mg/5 mL liquid 100 mg PO DAILY zolpidem 10 mg tablet 10 mg PO QHS PRN (Reason: sleep) polyethylene glycol 3350 [Miralax] 17 gram/dose powder 17 g PO BID Qty: 238 0RF docusate sodium [Colace] 100 mg capsule 100 mg PO BID Qty: 20 0RF cephalexin 500 mg capsule 500 mg PO BID 7 Days Qty: 14 0RF Primary Care Provider: Roland Johnson Referrals: Carolina Mcclelland MD [Med Staff - Active Staff] - Keep Gregory appointment Roland Johnson MD [Primary Care Provider] - 5-7 Days Print Language: Armenian Disposition Disposition: Home, Self Care
[2025-03-04 10:25] VITALS: BMI 27.9
[2025-03-04 11:01] LABS: Red Blood Cells-Urine 0 SEEN /hpf (0-5)
[2025-03-04 11:02] VITALS: PULSE 83; RESP 20
[2025-03-04 11:02] LABS: Color, Urine Yellow (Yellow); Glucose, Dipstick Normal (Normal); Ketone-Dipstick Negative (Negative); Leukocyte Esterase-Dipstick Negative /ul (Negative); Nitrite-Dipstick Negative (Negative); Occult Blood-Urine Negative /ul (Negative); Protein-Dipstick 15 mg/dl (Negative); Urine Bilirubin Dipstick Negative (Negative); Urine Clarity Clear (Clear); Urine Urobilinogen Normal (Normal)
[2025-03-04] MEDS: HYDROcodone Bitartrate/Apap 5/325 Tablet PO (11:02)
[2025-03-04 11:07] LABS: Bacteria RARE /hpf (None Seen); Mucous, Urine RARE /hpf (<or=2+); Squamous Epithelial Cells - UA 0-5 SEEN /hpf (5-10); White Blood Cells 0-5 SEEN /hpf (0-5)
[2025-03-04 11:38] VITALS: BP 130/96; PULSE 92; RESP 14; TEMP 36.1; O2SAT 97
--- NOTE | 2025-03-04 11:38 | ED.RN ---
This RN provided DC instructions to Human Resources Talent Manager. child welfare caseworker states no further questions at this time. Pt was DC with krishna.
== END 2025-03-04 11:39 | disposition home or self-care (01) ==
PROVIDERS: Emergency Provider Emergency Medicine; PCP Family Medicine; Visit Provider Emergency Medicine
DX: R33.9 Retention of urine, unspecified (principal); T83.021A Displacement of indwelling urethral catheter, initial encounter; X58.XXXA Exposure to other specified factors, initial encounter; F79 Unspecified intellectual disabilities; H54.7 Unspecified visual loss; Z79.899 Other long term (current) drug therapy
CPT/HCPCS: 51702; 81001; 99283

== ENCOUNTER → 2025-03-23 | Outpatient (CLI) | payer MEDICARE, MEDICAID, SELFPAY ==
--- NOTE | 2025-03-23 07:52 | US_ITS ---
EXAM: US Abdomen Limited, Gallbladder CLINICAL INDICATION: RUQ PAIN TECHNIQUE: Real-time ultrasound of the right upper quadrant with image documentation. COMPARISON: No relevant prior studies available. FINDINGS: LIVER: Liver measures up to 51 cm. GALLBLADDER: Cholelithiasis. Gallbladder sludge. COMMON BILE DUCT: Unremarkable as visualized. No stones. No dilation. Common bile duct measures 0.5 cm in diameter. PANCREAS: Unremarkable as visualized. RIGHT KIDNEY: Right kidney measures up to 10 point 5 cm. US/Gallbladder IMPRESSION: Cholelithiasis and gallbladder sludge. Reading [facility]
== END | disposition home or self-care (01) ==
LOC: US 07:48
PROVIDERS: PCP Family Medicine; Referring Provider Surgery; Visit Provider Surgery
DX: K82.8 Other specified diseases of gallbladder (principal); R10.11 Right upper quadrant pain
CPT/HCPCS: 76705

== ENCOUNTER → 2025-03-31 | Outpatient (CLI) | payer MEDICARE, MEDICAID, SELFPAY ==
--- NOTE | 2025-03-31 15:37 | RAD_ITS ---
PROCEDURE: FINGER(S) MIN 2 VIEWS 03/31/2025 REASON FOR EXAM: FINGER INJURY TECHNIQUE: 3 view(s) of the right 5th digit COMPARISON: None. FINDINGS: No evidence of acute fracture or dislocation. The joint spaces are maintained. No radiopaque foreign body. The soft tissues are unremarkable. RAD/Finger(s) Min 2 Views IMPRESSION: No acute osseous abnormality. Reading Location: [id number]
== END | disposition home or self-care (01) ==
LOC: MTRAD 15:16
PROVIDERS: PCP Family Medicine; Referring Provider Physician Assistant Surgical; Visit Provider Physician Assistant Surgical
DX: S69.90XA Unspecified injury of unspecified wrist, hand and finger(s), initial encounter (principal); X58.XXXA Exposure to other specified factors, initial encounter
CPT/HCPCS: 73140

== ENCOUNTER 2025-04-27 16:21 | Emergency (ER) | payer MEDICARE, MEDICAID, SELFPAY ==
[2025-04-27 16:23] VITALS: PULSE 96; RESP 15; TEMP 36.4; O2SAT 97
--- NOTE | 2025-04-27 16:44 | ED.VIS.FEGU ---
HPI HPI - Female History of Present Illness Chief Complaint: Complaint Narrative Narrative: History and physical limited secondary to MRDD. According to patient's caregiver, she has history of MRDD and previous urinary retention. Patient reportedly has not had urination since yesterday. She follows up with a urologist at [facility], usually has to come to the emergency department for Keller catheter placement which is left in place for approximately a week and then removed by urology. No recent fevers or chills, no nausea or vomiting, no other symptoms. [facility] Medical History Acid reflux Porcelain gallbladder Ketosis Acute dehydration Nausea vomiting and diarrhea Acute alteration in mental status Bacteriuria Kyphoscoliosis Impulse control disorder Bladder disease Restless legs Heartburn Non-smoker History of use of contraceptive intrauterine device (IUD) Acute diarrhea Profound mental handicap Seizures Blind Home Medications ?Medication ?Instructions ?Recorded ?Last Taken ?Type gabapentin 400 mg capsule 400 mg PO TID 11/18/14 Unknown History lorazepam 1 mg tablet 1 mg PO BID 11/18/14 Unknown History loratadine 10 mg tablet (Allergy 10 mg PO DAILY 02/05/18 Unknown History Relief (loratadine)) lorazepam 0.5 mg tablet 0.5 mg PO 1600 02/05/18 Unknown History acetaminophen 500 mg tablet 500 mg PO TID 01/09/23 Unknown History naproxen 500 mg tablet 500 mg PO BIDCM 01/09/23 Unknown History polyethylene glycol 3350 17 gram 17 g PO DAILY 01/09/23 Unknown History oral powder packet (Miralax) quetiapine 50 mg tablet 50 mg PO BID 10/09/23 Unknown History zolpidem 10 mg tablet 10 mg PO QHS PRN sleep 04/18/24 Unknown History carbamazepine 400 mg 400 mg PO BID 04/19/24 Unknown History tablet,extended release,12 hr docusate sodium 50 mg/5 mL oral 100 mg PO DAILY 04/19/24 Unknown History liquid olanzapine 10 mg tablet 10 mg PO QHS 04/19/24 Unknown History olanzapine 2.5 mg tablet (Zyprexa) 2.5 mg PO BID PRN MOOD DISORDER 04/19/24 Unknown History quetiapine 100 mg tablet 100 mg PO QHS 04/19/24 Unknown History docusate sodium 100 mg capsule 100 mg PO BID #20 caps 11/16/24 Unknown Rx (Colace) polyethylene glycol 3350 17 17 g PO BID #238 grams 11/16/24 Unknown Rx gram/dose oral powder (Miralax) cephalexin 500 mg capsule 500 mg PO BID 7 days #14 caps 02/28/25 Unknown Rx hydrocodone-acetaminophen 5-325mg 1 tab PO Q6H PRN PRN Pain 3 days 03/04/25 Unknown Rx 5mg-325mg #10 TABLETS omeprazole 40 mg capsule,delayed 40 mg PO DAILY #60 caps 03/09/25 Unknown Rx release Allergy/AdvReac Type Severity Reaction Status Date / Time No Known Allergies Allergy Verified 04/27/25 16:22 Surgical History History of hysterectomy History of surgery Social History household members: other details: senior care Smoking Status: Never smoker alcohol intake: never substance use type: does not use ROS ROS ED ROS Narrative Obtained from caregiver. No fevers or chills. No urination since yesterday. History of urinary retention. Review of Systems ROS Unobtainable: due to mental condition EXAM Physical Exam Narrative Exam Narrative: Afebrile. Vital signs noted. Nontoxic-appearing. Consistent with MRDD. Patient nonverbal at baseline. Cardiovascular examination regular rate and rhythm. Lungs are clear to auscultation bilaterally. Abdomen is soft and nontender. No guarding or rebound. Const Vital Signs: 04/27/25 16:23 Temperature 97.5 F L Temperature Source Temporal Pulse Rate 96 Respiratory Rate 15 Pulse Ox 97 Oxygen Delivery Method Room Air MDM MDM MDM Narrative Medical decision making narrative: Differential diagnosis includes urinary retention from neurogenic bladder versus medication side effect versus UTI versus dehydration. I reviewed her prior records. Keller catheter will be placed, and patient referred to Dr. Mcclelland. Keller catheter inserted with return urine. This was sent for analysis. On review of the urinalysis, it is negative for infection with 0-5 white cells and RBC 0-5. She is only had about 300 mL of urine output. In discussion with the caregiver, however, they state that the nurse requested at the facility that the Keller catheter be placed and they prefer that it be left in place for the next week until removed by urology. At this point in time, I feel she can be discharged to follow-up with urology. Disposition is discharged home in stable condition. History & Record Review Discussion w/independent historian: Other (Caregiver) Additional record(s) reviewed:: Prior ED visit Lab Data Attestation: I reviewed the patient's lab results. Labs: Laboratory Results - last 24 hr 04/27/25 16:53 Urine Color Straw Urine Clarity Clear Urine pH 6.0 Ur Specific [place] 1.020 Urine Protein 15 H Urine Glucose (UA) Normal Urine Ketones Negative Urine Occult Blood Negative Urine Nitrite Negative Urine Bilirubin Negative Urine Urobilinogen Normal Ur Leukocyte Esterase Negative Urine RBC 0-5 SEEN Urine WBC 0-5 SEEN Ur Squamous Epith Cells 5-10 SEEN Urine Bacteria 0 SEEN Urine Mucus 0 SEEN Discharge Plan Triage Chief Complaint: Complaint ED Provider: Rufus Owens Dx/Rx/DC Orders Clinical Impression: Acute on chronic urinary retention, Decreased urine output Instructions: ED Urinary Retention, Female, ED Urinary Incontinence Female Prescriptions: No Action omeprazole 40 mg capsule,delayed release(DR/EC) 40 mg PO DAILY Qty: 60 1RF gabapentin 400 MG capsule 400 mg PO TID lorazepam 1 MG tablet 1 mg PO BID lorazepam 0.5 MG tablet 0.5 mg PO 1600 loratadine [Allergy Relief (loratadine)] 10 MG tablet 10 mg PO DAILY polyethylene glycol 3350 [Miralax] 17 gram Powder In Packet 17 g PO DAILY acetaminophen 500 mg Tablet 500 mg PO TID naproxen 500 mg Tablet 500 mg PO BIDCM quetiapine 50 mg tablet 50 mg PO BID Rx Instructions: TAKES 50 MG IN THE MORNING AND AFTERNOON, AND 100MG AT BEDTIME. carbamazepine 400 mg tablet extended release 12 hr 400 mg PO BID quetiapine 100 mg tablet 100 mg PO QHS Rx Instructions: TAKES 50 MG IN THE MORNING AND AFTERNOON, AND 100MG AT BEDTIME. olanzapine 10 mg tablet 10 mg PO QHS olanzapine [Zyprexa] 2.5 mg tablet 2.5 mg PO BID PRN (Reason: MOOD DISORDER) docusate sodium 50 mg/5 mL liquid 100 mg PO DAILY zolpidem 10 mg tablet 10 mg PO QHS PRN (Reason: sleep) polyethylene glycol 3350 [Miralax] 17 gram/dose powder 17 g PO BID Qty: 238 0RF docusate sodium [Colace] 100 mg capsule 100 mg PO BID Qty: 20 0RF cephalexin 500 mg capsule 500 mg PO BID 7 Days Qty: 14 0RF hydrocodone-acetaminophen 5-325 mg tablet 1 tab PO Q6H PRN PRN (Reason: Pain) 3 Days Qty: 10 0RF Stand Alone Forms: ED Work / School Excuse Primary Care Provider: Roland Johnson Referrals: Carolina Mcclelland MD [Med Staff - Active Staff] - 1 Week Roland Johnson MD [Primary Care Provider] - Activity Restrictions/Additional Instructions: Follow-up with Dr. Mcclelland for keller catheter removal in 1 week. Print Language: Indonesian Disposition Disposition: Home, Self Care
[2025-04-27 17:03] LABS: Bacteria 0 SEEN /hpf (None Seen); Mucous, Urine 0 SEEN /hpf (<or=2+)
[2025-04-27 17:15] LABS: Color, Urine Straw (Yellow); Glucose, Dipstick Normal (Normal); Ketone-Dipstick Negative (Negative); Leukocyte Esterase-Dipstick Negative /ul (Negative); Nitrite-Dipstick Negative (Negative); Occult Blood-Urine Negative /ul (Negative); Protein-Dipstick 15 mg/dl (Negative); Urine Bilirubin Dipstick Negative (Negative); Urine Clarity Clear (Clear); Urine Urobilinogen Normal (Normal)
[2025-04-27 17:36] LABS: Red Blood Cells-Urine 0-5 SEEN /hpf (0-5); Squamous Epithelial Cells - UA 5-10 SEEN /hpf (5-10); White Blood Cells 0-5 SEEN /hpf (0-5)
[2025-04-27 18:21] VITALS: PULSE 84; RESP 18; O2SAT 98
== END 2025-04-27 18:22 | disposition home or self-care (01) ==
PROVIDERS: Emergency Provider Emergency Medicine; PCP Family Medicine; Referring Provider Emergency Medicine; Visit Provider Emergency Medicine
DX: R33.9 Retention of urine, unspecified (principal); F79 Unspecified intellectual disabilities; Z79.899 Other long term (current) drug therapy
CPT/HCPCS: 51702; 81001; 99283

== ENCOUNTER 2025-07-20 12:09 | Emergency (ER) | payer MEDICARE, MEDICAID, SELFPAY ==
[2025-07-20 12:09] VITALS: TEMP 37.2
[2025-07-20 12:13] VITALS: BMI 25.6
--- NOTE | 2025-07-20 13:28 | EX.ED.DYSGE1 ---
HPI History of Present Illness Chief Complaint: Complaint Informant: SNF and other (Caregiver) Limited: uncooperative and other (Patient is nonverbal) Onset/Context/Timing Onset: Days (2) Context: Gradual Onset Timing: Continuous Location: Abdomen Worsened by: Nothing Relieved by: Nothing Narrative Narrative: Patient presents with abdominal pain that began 2 days ago. Caregiver states that it came on gradually. Caregiver states it has been constant. Caregiver states that on her previous visit, patient was noted to have sludge in her gallbladder. Caregiver is concerned that this could be cholecystitis or urinary tract infection. Patient is nonverbal and blind. Patient is a very poor informant. Caregiver denies any vomiting. Caregiver denies any fevers or chills. [facility] Medical History Acid reflux Porcelain gallbladder Ketosis Acute dehydration Nausea vomiting and diarrhea Acute alteration in mental status Bacteriuria Kyphoscoliosis Impulse control disorder Bladder disease Restless legs Heartburn Non-smoker History of use of contraceptive intrauterine device (IUD) Acute diarrhea Profound mental handicap Seizures Blind Home Medications ?Medication ?Instructions ?Recorded ?Last Taken ?Type gabapentin 400 mg capsule 400 mg PO TID 11/18/14 Unknown History lorazepam 1 mg tablet 1 mg PO BID 11/18/14 Unknown History loratadine 10 mg tablet (Allergy 10 mg PO DAILY 02/05/18 Unknown History Relief (loratadine)) lorazepam 0.5 mg tablet 0.5 mg PO 1600 02/05/18 Unknown History acetaminophen 500 mg tablet 500 mg PO TID 01/09/23 Unknown History naproxen 500 mg tablet 500 mg PO BIDCM 01/09/23 Unknown History polyethylene glycol 3350 17 gram 17 g PO DAILY 01/09/23 Unknown History oral powder packet (Miralax) quetiapine 50 mg tablet 50 mg PO BID 10/09/23 Unknown History zolpidem 10 mg tablet 10 mg PO QHS PRN sleep 04/18/24 Unknown History carbamazepine 400 mg 400 mg PO BID 04/19/24 Unknown History tablet,extended release,12 hr docusate sodium 50 mg/5 mL oral 100 mg PO DAILY 04/19/24 Unknown History liquid olanzapine 10 mg tablet 10 mg PO QHS 04/19/24 Unknown History olanzapine 2.5 mg tablet (Zyprexa) 2.5 mg PO BID PRN MOOD DISORDER 04/19/24 Unknown History quetiapine 100 mg tablet 100 mg PO QHS 04/19/24 Unknown History docusate sodium 100 mg capsule 100 mg PO BID #20 caps 11/16/24 Unknown Rx (Colace) polyethylene glycol 3350 17 17 g PO BID #238 grams 11/16/24 Unknown Rx gram/dose oral powder (Miralax) cephalexin 500 mg capsule 500 mg PO BID 7 days #14 caps 02/28/25 Unknown Rx hydrocodone-acetaminophen 5-325mg 1 tab PO Q6H PRN PRN Pain 3 days 03/04/25 Unknown Rx 5mg-325mg #10 TABLETS omeprazole 40 mg capsule,delayed 40 mg PO DAILY #60 caps 03/09/25 Unknown Rx release tobramycin 0.3 % eye drops 1 drp ophthalmic (eye) Q2H #5 mL 05/02/25 Unknown Rx sulfamethoxazole 800 1 tab PO BID #6 TABLETS 07/20/25 Unknown Rx mg-trimethoprim 160 mg tablet Allergy/AdvReac Type Severity Reaction Status Date / Time No Known Allergies Allergy Verified 05/02/25 11:25 Surgical History History of hysterectomy History of surgery Social History household members: other details: [facility] Smoking Status: Never smoker alcohol intake: never substance use type: does not use ROS ROS ED Review of Systems ROS Unobtainable: due to mental condition Constitutional Constitutional ED: Denies chills or fever(s) Respiratory/Chest Respiratory/Chest: Denies cough or dyspnea Gastrointestinal Gastrointestinal: Reports abdominal pain; Denies vomiting Integumentary Denies rash Allergic/Immunologic Allergic/Immunologic ED: Denies mouth swelling or urticaria EXAM Physical Exam Const Vital Signs: 07/20/25 12:09 07/20/25 14:42 Temperature 98.9 F Temperature Source Temporal Pulse Rate 93 Respiratory Rate 16 Blood Pressure 119/79 Blood Pressure Mean 92 Pulse Ox 99 Oxygen Delivery Method Room Air Positive well nourished and well developed General Appearance ED: well developed and NAD HEENT Reports moist mucous membranes Neck supple and no JVD Resp normal respiratory effort and clear to auscultation bilaterally Cardio regular rate and regular rhythm GI non-distended Palpation: soft and tender epigastric, LUQ and RUQ; Negative for rebound tenderness present Neuro oriented x3, CN's II-XII intact bilaterally and no sensory deficits noted Sensorium / Orientation: alert Motor Exam: strength 5/5 throughout Psych mental status grossly normal MDM MDM MDM Narrative Medical decision making narrative: Differential diagnosis includes cholecystitis, cholelithiasis, bowel obstruction, perforation, pancreatitis, peptic ulcer disease, duodenal ulcer, urinary tract infection, pyelonephritis, and viral illness. CBC will be obtained to assess for leukocytosis and anemia. Comprehensive metabolic profile will be obtained to assess for hepatic function, renal function, and electrolyte abnormality. Lipase will be obtained to assess for pancreatitis. Urinalysis will be obtained to assess for urinary tract infection and hematuria. CT scan of the abdomen and pelvis will be obtained to assess for bowel obstruction, perforation, cholecystitis, and cholelithiasis. History & Record Review Additional record(s) reviewed:: Prior ED visit and Prior labs Lab Data Attestation: I reviewed the patient's lab results. Lab results narrative: CBC was reviewed. There is a mild anemia with a hemoglobin of 11.4 and a hematocrit of 34.2. Comprehensive metabolic profile was reviewed and was essentially within normal limits. Lipase was reviewed and was normal at 40. Urinalysis was reviewed. Leukocyte Estrace was 25 with positive nitrites and 3+ bacteria. There are 0-5 white blood cells. Labs: Laboratory Results - last 24 hr 07/20/25 07/20/25 13:55 14:40 WBC 6.9 RBC 3.56 L Hgb 11.4 L Hct 34.2 L MCV 96.1 MCH 32.0 MCHC 33.3 RDW Std Deviation 41.7 RDW Coeff of Sotero 11.9 Plt Count 238 MPV 10.8 Immature Gran % (Auto) 0.300 Neut % (Auto) 56.8 Lymph % (Auto) 29.5 [place] % (Auto) 8.4 Eos % (Auto) 4.9 Baso % (Auto) 0.1 Absolute Neuts (auto) 3.9 Absolute Lymphs (auto) 2.03 Nucleated RBC % 0 Sodium 143 Potassium 4.3 Chloride 109 H Carbon Dioxide 25.2 Anion Gap 9 BUN 18 Creatinine 0.58 L Estim Creat Clear Calc 133.99 Est GFR (MDRD) Non-Af 119 BUN/Creatinine Ratio 30.7 H Glucose 87 Calcium 8.5 Total Bilirubin < 0.15 AST 18 ALT 22 Alkaline Phosphatase 99 Total Protein 6.5 Albumin 3.9 Globulin 2.6 Albumin/Globulin Ratio 1.5 Lipase 40 Urine Color Yellow Urine Clarity Sl. Cloudy Urine pH 7.0 Ur Specific [place] 1.010 Urine Protein 15 H Urine Glucose (UA) Normal Urine Ketones Negative Urine Occult Blood Negative Urine Nitrite Positive H Urine Bilirubin Negative Urine Urobilinogen Normal Ur Leukocyte Esterase 25 H Urine RBC 0 SEEN Urine WBC 0-5 SEEN Ur Squamous Epith Cells 0-5 SEEN Urine Bacteria 3+ Urine Mucus 0 SEEN Radiography Diagnostic Testing: Clinical Impression(s) from Imaging Studies Abdomen/Pelvis CT 07/20/25 13:41 IMPRESSION: 1. Unchanged calcified gallbladder wall with mild dilatation of the common bile duct measuring 6 mm. 2. Mild hepatomegaly and mild diffuse hepatic steatosis. 3. Moderate colonic stool burden suggesting constipation. 4. Stable grade 2 retrolisthesis of S1 on L5 by 8 mm. Reading Location: [facility] CT scan of the abdomen and pelvis was obtained. There is calcified gallbladder wall with mild dilatation of the common bile duct measuring 6 mm. This is unchanged. There is no acute abnormality noted. There is no free air or free fluid. This was interpreted by the radiologist and was also independently reviewed by myself. Treatment and Re-Evaluation :: Patient was given morphine and Zofran. Caregiver was advised of the findings. Discharge Plan Triage Chief Complaint: Complaint ED Provider: Lex Abreu Dx/Rx/DC Orders Clinical Impression: Urinary tract infection, Abdominal pain Instructions: ED Cystitis Female Adult Prescriptions: New sulfamethoxazole-trimethoprim 800-160 mg tablet 1 tab PO BID Qty: 6 0RF No Action omeprazole 40 mg capsule,delayed release(DR/EC) 40 mg PO DAILY Qty: 60 1RF tobramycin 0.3 % drops 1 drp ophthalmic (eye) Q2H Qty: 5 0RF Rx Instructions: to affected eye while awake first 24 hours, then 3x/day on days 2-5 gabapentin 400 MG capsule 400 mg PO TID lorazepam 1 MG tablet 1 mg PO BID lorazepam 0.5 MG tablet 0.5 mg PO 1600 loratadine [Allergy Relief (loratadine)] 10 MG tablet 10 mg PO DAILY polyethylene glycol 3350 [Miralax] 17 gram Powder In Packet 17 g PO DAILY acetaminophen 500 mg Tablet 500 mg PO TID naproxen 500 mg Tablet 500 mg PO BIDCM quetiapine 50 mg tablet 50 mg PO BID Rx Instructions: TAKES 50 MG IN THE MORNING AND AFTERNOON, AND 100MG AT BEDTIME. carbamazepine 400 mg tablet extended release 12 hr 400 mg PO BID quetiapine 100 mg tablet 100 mg PO QHS Rx Instructions: TAKES 50 MG IN THE MORNING AND AFTERNOON, AND 100MG AT BEDTIME. olanzapine 10 mg tablet 10 mg PO QHS olanzapine [Zyprexa] 2.5 mg tablet 2.5 mg PO BID PRN (Reason: MOOD DISORDER) docusate sodium 50 mg/5 mL liquid 100 mg PO DAILY zolpidem 10 mg tablet 10 mg PO QHS PRN (Reason: sleep) polyethylene glycol 3350 [Miralax] 17 gram/dose powder 17 g PO BID Qty: 238 0RF docusate sodium [Colace] 100 mg capsule 100 mg PO BID Qty: 20 0RF cephalexin 500 mg capsule 500 mg PO BID 7 Days Qty: 14 0RF hydrocodone-acetaminophen 5-325 mg tablet 1 tab PO Q6H PRN PRN (Reason: Pain) 3 Days Qty: 10 0RF Primary Care Provider: Roland Johnson Referrals: Roland Johnson MD [Primary Care Provider, Medical] - 5-7 Days Print Language: Faroese Disposition Disposition: Home, Self Care
--- NOTE | 2025-07-20 13:41 | CT_ITS ---
PROCEDURE: ABDOMEN/PELVIS W IV CONT ONLY 07/20/2025 REASON FOR EXAM: ABDOMINAL PAIN TECHNIQUE: Procedure Code: [id number] Modality: CT Procedure: ABDOMEN/PELVIS W IV CONT ONLY Coronal and Sagittal reconstruction series were provided. CONTRAST: 100 cc of Isovue 370 intravenous contrast. One or more dose reduction techniques were used (e.g., Automated exposure control, adjustment of the mA and/or kV according to patient size, use of iterative reconstruction technique. COMPARISON: Ultrasound 03/23/2025, CT abdomen and pelvis 10/09/2023 FINDINGS: Lung bases: Unremarkable. Liver: Mildly enlarged measuring 17.8 cm craniocaudally. Mild diffuse hepatic steatosis. No obvious hepatic mass. Gallbladder: Redemonstrated calcified gallbladder wall. Mild dilatation of the common bile duct measuring 6 mm. No pericholecystic fat stranding. Spleen: Normal size. Pancreas: Normal size without evidence of mass surrounding inflammation or ductal dilation. Adrenals: Unremarkable. Kidneys: Normal renal sizes. No hydronephrosis. Bladder: Unremarkable Reproductive Organs: Prior hysterectomy. Adnexal regions are unremarkable. Bowel: Moderate colonic stool burden suggesting constipation no bowel obstruction. No inflammatory changes. Appendix: Normal Lymph nodes: Unremarkable. Vasculature: The abdominal aorta and IVC are normal. Peritoneum / Retroperitoneum: No free fluid or air. Bones: Redemonstrated grade 2 retrolisthesis of S1 on L5 by 8 mm. No acute fractures. CT/Abdomen/Pelvis W IV Cont ONLY IMPRESSION: 1. Unchanged calcified gallbladder wall with mild dilatation of the common bile duct measuring 6 mm. 2. Mild hepatomegaly and mild diffuse hepatic steatosis. 3. Moderate colonic stool burden suggesting constipation. 4. Stable grade 2 retrolisthesis of S1 on L5 by 8 mm. Reading Location: [facility]
[2025-07-20 14:03] LABS: Hematocrit 34.2 % (37-47); Hemoglobin 11.4 g/dL (12.0-15.0); Immature Granulocytes Count 0.020 X10^3/uL (0.0-0.0); Mean Corp Hgb Conc 33.3 g/dL (32-36); Mean Corpuscular Volume 96.1 fL (81-99); Mean Platelet Vol. 10.8 fl (6.2-12.0); NRBC Flagged by Analyzer 0 % (0-5); Platelet Count 238 K/mm3 (150-450); RBC Distribution Width CV 11.9 % (11.6-14.6); RBC Distribution Width SD 41.7 fl (35.1-43.9); Red Blood Count 3.56 M/mm3 (4.2-5.4); White Blood Count 6.9 K/mm3 (4.4-11.0)
[2025-07-20 14:42] VITALS: BP 119/79; PULSE 93; RESP 16; O2SAT 99
[2025-07-20 14:48] LABS: AST(SGOT) 18 U/L (<=31); Alanine Aminotransfer ALT/SGPT 22 U/L (<=34); Albumin, Serum 3.9 g/dL (3.5-5.0); Alkaline Phosphatase 99 U/L (35-104); Anion Gap 9 (5-15); BUN 18 mg/dL (4-19); BUN/Creat Ratio 30.7 RATIO (10-20); Calcium,Total 8.5 mg/dL (7.6-11.0); Carbon Dioxide 25.2 mmol/L (21.0-32.0); Chloride 109 mmol/L (98-108); Estimated Creatinine Clearance 133.99 ml/min (50-250); Globulin 2.6 g/dL (2.2-4.2); Glucose 87 mg/dL (70-99); Lipase 40 U/L (13-75); Potassium 4.3 mmol/L (3.3-5.1)
[2025-07-20 14:49] LABS: Mucous, Urine 0 SEEN /hpf (<or=2+); Red Blood Cells-Urine 0 SEEN /hpf (0-5)
[2025-07-20 14:55] LABS: Color, Urine Yellow (Yellow); Glucose, Dipstick Normal (Normal); Ketone-Dipstick Negative (Negative); Leukocyte Esterase-Dipstick 25 /ul (Negative); Nitrite-Dipstick Positive (Negative); Occult Blood-Urine Negative /ul (Negative); Protein-Dipstick 15 mg/dl (Negative); Specific Gravity, Urine 1.010 (1.002-1.030); Urine Bilirubin Dipstick Negative (Negative)
[2025-07-20 15:05] LABS: Squamous Epithelial Cells - UA 0-5 SEEN /hpf (5-10)
[2025-07-20] MEDS: Smz/Tmp Ds Tablet 1 TABLET PO (15:43)
== END 2025-07-20 15:59 | disposition home or self-care (01) ==
PROVIDERS: Emergency Provider Emergency Medicine; PCP Family Medicine; Visit Provider Emergency Medicine
DX: N39.0 Urinary tract infection, site not specified (principal); R10.9 Unspecified abdominal pain
CPT/HCPCS: 74177; 80053; 81001; 83690; 85025; 87077; 87086; 87088; 87186; 96374; 96375; 99283; Q9967; A4216; J2405

== ENCOUNTER 2025-09-11 08:03 | Day surgery (SDC) | payer MEDICARE, MEDICAID, SELFPAY ==
[2025-09-11] VITALS (12 sets, daily range): BP systolic 104–131; BP diastolic 76–96; PULSE 70–88; RESP 14–17; TEMP 36.1–36.6; O2SAT 95–100; BMI 27.6
[2025-09-11] MEDS: Lactated Ringers 1,000 ML 15 ML IV (08:15)
--- NOTE | 2025-09-11 08:16 | EKG12_ITS ---
Test Reason : PRE OP Blood Pressure : */* mmHG Vent. Rate : 80 BPM Atrial Rate : 80 BPM P-R Int : 140 ms QRS Dur : 78 ms QT Int : 374 ms P-R-T Axes : 56 33 41 degrees QTcB Int : 431 ms Normal sinus rhythm Possible Left atrial enlargement Borderline ECG When compared with ECG of 18-Apr-2024 17:23, No significant change was found Confirmed by Bernard Ross ([id number]), news copy editor BONNIE ADAMS ([id number]) on 09/11/2025 1:11:24 PM Referred By: Krystian Wei Confirmed By: Bernard Ross
[2025-09-11] MEDS: INDOCYANINE GREEN 3.75 MG in Syringe 1.5 ML 999 MG IV (08:49)
--- NOTE | 2025-09-11 09:27 | PCM.PRE.AN2 ---
ASA Classification* ASA Classification ASA Classification: 3 (MRDD / Combative. GERD, Gallbladder dz, ) Assessment & Plan Anesthesia* Anesthesia Assessment Anesthesia Assessment: Discussed sedation and/or anesthesia options, risks, benefits, and alternatives with patient/parents/legal guardian/POA. Questions invited. The patient/parents/legal guardian/POA seems to understand and agrees to proceed with anesthesia plan. Reviewed the physical assessment, medical history, allergy history and patient home medications list prior to surgery/procedure/anesthetic and documented any changes. Performed airway and anesthesia risk assessments. Anesthesia Type Anesthesia Type: General (RSI - patient had very small amount of apple sauce with meds at 7 AM) History Source History Obtained from:: Patient, Chart and Parent/ Guardian (Guardian gave informed consent, including for aneshtesia on . Margarita Ledezma gave consent. ) Anesthesia Focused Assessment* Temperature: 97 F Pulse Rate: 88 Blood Pressure: 104/76 Respiratory Rate: 17 Pulse Ox: 95 Oxygen Delivery Method: Room Air Airway Assessment Mouth opens: >3 cm Mallampati Score: II Neck Range of motion (ROM): Full ROM Labs Anesthesia Preop lab: CBC WBC, (4.4-11.0) 6.9 K/mm3 07/20/25, 13:55 RBC, (4.2-5.4) 3.56 M/mm3 L 07/20/25, 13:55 Hgb, (12.0-15.0) 11.4 g/dL L 07/20/25, 13:55 Hct, (37-47) 34.2 % L 07/20/25, 13:55 Plt Count, (150-450) 238 K/mm3 07/20/25, 13:55 CHEMISTRY Potassium, (3.3-5.1) 4.3 mmol/L 07/20/25, 13:55 Sodium, (133-145) 143 mmol/L 07/20/25, 13:55 BUN, (4-19) 18 mg/dL 07/20/25, 13:55 Creatinine, (0.70-1.20) 0.58 mg/dL L 07/20/25, 13:55 Glucose, (70-99) 87 mg/dL 07/20/25, 13:55 POC Glucose, (74-106) 115 mg/dL H 04/18/24, 17:28 COAG Pre-Assessment Diagnosis/Proposed Procedure Planned Operative Procedure(s): ROBOTIC NIKIA Anesthesia History Anesthesia History - survey project manager: Anesthesia History - survey project manager Hx Hospitalization No 08/31/25 15:11 Any Problems With Anesthesia No 08/31/25 15:11 Cholinesterase deficiency No 08/31/25 15:11 You/Your Family Experience No 08/31/25 15:11 fever (hyperthermia) with Relationship Recent Exposure to Contagious No 09/11/25 08:44 Disease Does patient have nerve No 08/31/25 15:11 stimulator Patient instructed to have device shut off --Does patient have Pacemaker No 09/11/25 08:44 or ICD? When Was Last Pacemaker Check QUESTION #4 FULL TEXT: You/Your Family Experience fever (hyperthermia) with Anesthesia Last Oral Intake Last Oral intake: Last Oral Intake NPO since 07:00 09/11/25 08:44 Meds taken in AM with sips of Yes 09/11/25 08:44 water? Meds patient instructed to see home med list 09/11/25 08:44 take am of surgery PONV PONV - survey project manager: PONV - survey project manager Female Yes 08/31/25 15:11 HX of Motion Sickness No 08/31/25 15:11 HX of N/V After Surgery No 08/31/25 15:11 Non-Smoker Yes 08/31/25 15:11 Duration of Surgery greater No 08/31/25 15:11 than 60 minutes Number of Risk Factors 2 08/31/25 15:11 PONV Score Moderate Risk 08/31/25 15:11 Height & Weight Height & Weight: Anesthesia: Height & Weight Height 5 ft 3 in 09/11/25 08:44 Weight: 70.7 kg 09/11/25 08:44 Body Mass Index (BMI) 27.6 09/11/25 08:44 Respiratory Assessment Respiratory Assessment - survey project manager: Respiratory Tract Infection Hx - survey project manager Hx Respiratory Tract Infection No 08/31/25 15:11 STOP Sleep Apnea STOP Sleep Apnea - survey project manager: STOP Sleep Apnea - survey project manager Hx Hypertension No 08/31/25 15:11 Hx Sleep Apnea No 08/31/25 15:11 CPAP No 03/31/25 14:48 BIPAP No 03/31/25 14:48 Do you snore loudly (louder No 08/31/25 15:11 than talking or can be heard Do you often feel tired/ No 08/31/25 15:11 fatigued/ sleepy during daytime? Has anyone observed you stop No 08/31/25 15:11 breathing during sleep? STOP Results Negative 08/31/25 15:11 QUESTION #5 FULL TEXT : Do you snore loudly (louder than talking or can be heard through closed doors)? Tobacco Use History Tobacco Use History - survey project manager: Tobacco Use History - survey project manager Tobacco Use Smoking Status Never smoker 08/31/25 15:11 Hx Tobacco Use No 08/31/25 15:11 Years Smoking Packs Smoked per Day Smoking Cessation Date was within the last 15 years Hx Smoking Cessation Date Hx Smoking Cessation Counseling Hematologic Medial History Hematologic Hx - survey project manager: Hematologic Medical Hx - provider enrollment specialist Hx of Blood Transfusion No 08/31/25 15:11 Hx of Transfusion in last 3 No 08/31/25 15:11 Months Date of Last Transfusion (if within last 3 months) Ever experience any problems No 08/31/25 15:11 with transfusion(s)? Specify any problems Hx of Preganancy in last 3 No 08/31/25 15:11 Months Nurse Filling Out Transfusion DSCHRIBER 08/31/25 15:11 & Questions: Date: 08/31/25 08/31/25 15:11 Time: 15:12 08/31/25 15:11 Patient unable to answer at this time (ie. confused, unrespo /Reproduction History /Reproductive History - survey project manager: /Reproductive Hx- survey project manager Hx Now No 08/31/25 15:11 Gestational Age (in weeks): EDC: Hx Hx Para Hx Section SAB No 08/31/25 15:11 Does the father of the baby or his family experience fever w Father of the baby Malignant Hypertension history comment Active Medications Active Medications: Current Medications Generic Name Dose Route Start Last Admin Trade Name Freq PRN Reason Stop Dose Admin Cefotetan Disodium 2 gm/ 100 mls @ 200 mls/hr 09/11/25 09:45 Sodium Chloride IV 09/11/25 10:14 INTRAOP ONE Lactated Ringer's 1,000 mls @ 15 mls/hr 09/11/25 08:15 09/11/25 08:15 IV 15 mls/hr .Q48H [facility] Medical History (Updated 08/31/25 @ 15:19 by Angie Palacios) Lives in [facility] Anxiety Bacteriuria Kyphoscoliosis Impulse control disorder Bladder disease Restless legs Non-smoker Profound mental handicap Seizures Blind Home Medications ?Medication ?Instructions ?Recorded ?Last Taken ?Type gabapentin 400 mg capsule 400 mg PO TID 11/18/14 09/11/25 History lorazepam 1 mg tablet 1 mg PO BID 11/18/14 09/11/25 History loratadine 10 mg tablet (Allergy 10 mg PO DAILY 02/05/18 Unknown History Relief (loratadine)) lorazepam 0.5 mg tablet 0.5 mg PO 1600 02/05/18 09/10/25 History acetaminophen 500 mg tablet 500 mg PO TID 01/09/23 09/11/25 History naproxen 500 mg tablet 500 mg PO BIDCM 01/09/23 Unknown History polyethylene glycol 3350 17 gram 17 g PO DAILY 01/09/23 09/10/25 History oral powder packet (Miralax) quetiapine 50 mg tablet 300 mg PO QHS 10/09/23 09/10/25 History carbamazepine 400 mg 400 mg PO BID 04/19/24 09/11/25 History tablet,extended release,12 hr quetiapine 100 mg tablet 150 mg PO DAILY 04/19/24 09/11/25 History bethanechol chloride 25 mg tablet 25 mg PO TID 08/17/25 09/11/25 History cariprazine 6 mg capsule (Vraylar) 6 mg PO QDAY 08/17/25 09/11/25 History guanfacine 3 mg tablet,extended 3 mg PO QHS 08/17/25 09/10/25 History release 24 hr tamsulosin 0.4 mg capsule 0.4 mg PO QHS 08/17/25 09/10/25 History zaleplon 5 mg capsule 5 mg PO QHS 08/17/25 09/10/25 History Allergy/AdvReac Type Severity Reaction Status Date / Time No Known Allergies Allergy Verified 09/11/25 08:43 Surgical History (Updated 08/31/25 @ 15:19 by Angie Palacios) History of hysterectomy History of surgery Social History household members: other details: [facility] Smoking Status: Never smoker alcohol intake: never substance use type: does not use Review of Systems (Anesthesia) ROS Narrative System reviewed and no additional complaints, except as documented. Physical Exam Const alert, oriented x3 and average body habitus Resp normal respiratory effort, normal air movement and clear to auscultation bilaterally Cardio regular rate, regular rhythm, no murmurs and diaphoretic
--- NOTE | 2025-09-11 09:45 | GALL_PTH ---
PATIENT: MINH BAEZA LOC: [facility] [place] U#:[id number] AGE/SX: 40/F ROOM: RE09/11/[address]: Dr. Krystian Wei MD : [id number] BED: DIS: 09/11/2025 SPEC #: [id number] RECD: 09/11/25 13:06 STATUS: MISAEL MARQUES #: [id number] GARIMA: 09/11/25 09:[address]: Krystian Wei DEPT: SURGICAL PATHOLOGY RECD BY: Uziel Mcbride ENTERED: 09/11/25 13:43 SP TYPE: HERLINDA DE PAZ DR: Dr. Roland Johnson MD Tissues: A - Gallbladder, NOS Procedures: Decalcification bone/plaque Surgery Specimen Level III HEADER OPERATION: Robotic cholecystectomy PRE-OP DIAGNOSIS: Porcelain gallbladder TISSUE SUBMITTED: A- Gallbladder MICROSCOPIC DIAGNOSIS A. Gallbladder, robotic cholecystectomy: - Gangrenous cholecystitis, cholelithiasis. MICROSCOPIC DESCRIPTION Slides are reviewed. GROSS DESCRIPTION A. Received in formalin labeled with the patient's name and date of . Designated as gallbladder is a 5.4 x 2.5 x 1.4 cm cuellar-pink, distended firm gallbladder with attached patent cystic duct (inked black, shaved). A lymph node is not present. Opening reveals copious inspissated yellow bile and numerous yellow to black choleliths, <0.1 cm to 0.7 cm. The mucosa is approximately 50% cuellar-pink and focally granular with erythema and 50% cuellar-yellow and calcified; the wall measures up to 0.5 cm thick. Cholesterolosis is not present. Manager Risk Management sections are submitted in 1 cassette, following brief decalcification. MD 09/11/2025 CPT:[id number]
--- NOTE | 2025-09-11 10:09 | PCM.HP.BLA ---
History and Physical Date of Admission: 09/11/25 Intake Vital Signs 07/20/2512:09 08/17/2509:20 Height 5 ft 6 in 5 ft 3 in Weight: 162 lb BMI 28.7 Respiration 16 Intake Visit Reasons: DISCUSS GALLBLADDER SX Chief Complaint: gallbladder issues [employer] Clerk Required: No Accompanied by: Pham of the Court Is patient in pain?: Yes Allergies No Known Allergies Allergy (Verified 05/02/25 11:25) Medications ?Medication ?Instructions ?Recorded ?Confirmed ?Type gabapentin 400 mg capsule 400 mg PO TID 11/18/14 08/17/25 History lorazepam 1 mg tablet 1 mg PO BID 11/18/14 08/17/25 History loratadine 10 mg tablet (Allergy 10 mg PO DAILY 02/05/18 08/17/25 History Relief (loratadine)) lorazepam 0.5 mg tablet 0.5 mg PO 1600 02/05/18 08/17/25 History acetaminophen 500 mg tablet 500 mg PO TID 01/09/23 08/17/25 History naproxen 500 mg tablet 500 mg PO BIDCM 01/09/23 08/17/25 History polyethylene glycol 3350 17 gram 17 g PO DAILY 01/09/23 08/17/25 History oral powder packet (Miralax) quetiapine 50 mg tablet 50 mg PO BID 10/09/23 08/17/25 History carbamazepine 400 mg 400 mg PO BID 04/19/24 08/17/25 History tablet,extended release,12 hr quetiapine 100 mg tablet 100 mg PO QHS 04/19/24 08/17/25 History docusate sodium 100 mg capsule 100 mg PO BID #20 caps 11/16/24 08/17/25 Rx (Colace) tobramycin 0.3 % eye drops 1 drp ophthalmic (eye) Q2H #5 mL 05/02/25 05/02/25 Rx bethanechol chloride 25 mg tablet 25 mg PO TID 08/17/25 08/17/25 History cariprazine 6 mg capsule (Vraylar) 6 mg PO QDAY 08/17/25 08/17/25 History guanfacine 3 mg tablet,extended 3 mg PO QDAY 08/17/25 08/17/25 History release 24 hr tamsulosin 0.4 mg capsule mg PO 08/17/25 08/17/25 History zaleplon 5 mg capsule 5 mg PO QHS 08/17/25 08/17/25 History Have you fallen in the past year?: No PFSH Medical History Acid reflux Porcelain gallbladder Ketosis Acute dehydration Nausea vomiting and diarrhea Acute alteration in mental status Bacteriuria Kyphoscoliosis Impulse control disorder Bladder disease Restless legs Heartburn Non-smoker History of use of contraceptive intrauterine device (IUD) Acute diarrhea Profound mental handicap Seizures Blind Surgical History History of hysterectomy History of surgery Social History household members: other details: [facility] Smoking Status: Never smoker alcohol intake: never substance use type: does not use HPI HPI HPI: Patient is a 40-year-old female here with concerns for biliary colic. The aides at her care home thinks that she is agitated because she has abdominal pain because of her gallbladder. The patient had a recent emergency room visit in July for a UTI and at that time a CT scan was performed and it showed calcified gallbladder with porcelain gallbladder and stones and sludge. There was no thickening to suggest acute cholecystitis. ROS General General: No weight change, appetite, fatigue, colon cancer, breast cancer or weakness HEENT HEENT: No difficulty swallowing, eye injury, eye surgery, swollen glands or hoarseness Endo Endocrine: No thyroid disease, diabetes mellitus, thyroid cancer, Hair loss, heat intolerance or cold intolerance Skin Skin: No rash or changing moles Musc Musculoskeletal: Yes back problems; No arthritis, rheumatoid arthritis, gout or joint pain Cardio Cardiovascular: No murmur, pacemaker, heart disease, atrial fibrillation, high blood pressure, heart attack, heart stent, palpitations, shortness of breath with exertion or chest pain Psych Psychiatric: Yes depression and anxiety; No hearing voices Resp Respiratory: No shortness of breath, No sleep apnea, No cough, No COPD, No asthma, No emphysema and No wheezing Gastro Gastrointestinal: Yes abdominal pain, No nausea or vomiting, No diarrhea, No constipation, No blood in stool, Yes acid reflux, No hemorrhoids, No ulcers, Yes gallbladder problem and No black,tarry stools [place] Hematologic: No blood thinners, No blood disorders, No bleeding, No anemia and No blood clots Neuro Neurologic: No numbness, No tingling and No weakness Exam Const General: healthy appearing Orientation: alert Limitations: altered mental status HENMT Head: normal to inspection Neck Neck: normal visual inspection and full ROM Chest Chest palpation & inspection: normal inspection of the chest Resp Effort & Inspection: normal respiratory effort Auscultation: clear to auscultation bilaterally Cardio Rate: regular rate Rhythm: regular rhythm GI Inspection: non-distended Palpation: soft and nontender Skin General: no rashes or lesions noted Neuro General: patient alert and patient oriented x3 Extrem General: full ROM Psych Appearance: grossly normal Mental Status: mental status grossly normal Assessment and Plan Assessment and Plan (1) Porcelain gallbladder: Status: Acute Plan: Patient has a porcelain gallbladder with stones and sludge in it. The care home aides are concerned that it is her gallbladder causing her to be agitated and in pain. I discussed robotic assisted laparoscopic cholecystectomy with the patient's guardian. The patient has profound mental handicap and is blind and unable to answer any questions. I discussed cholecystectomy with the patient's guardian in detail. I discussed the risks of the procedure such as bleeding, infection, injury to the other organs around the gallbladder such as the bile duct, liver, bowel. I also discussed the possibility of having to perform further surgery if any of these injuries occur. Patient's guardian is agreeable and would like to schedule surgery. Krystian Wei MD Pager: [facility] [address] [place] [address], [address] [place] [address] Office: I have examined the patient and the H&P has been reviewed. There are no clinical changes since date of exam.
[2025-09-11] MEDS: Lactated Ringers 1,000 ML 1000 ML IV (10:27)
[2025-09-11] MEDS: dexMEDEtomidine 200 MCG/2 ML ML 20 MCG IV (10:32)
[2025-09-11] MEDS: Lidocaine 1% (5 ml sdv) 5 ML Vial IV (10:36)
[2025-09-11] MEDS: fentaNYL 100 MCG/2 ML Ampul IV (10:51)
--- NOTE | 2025-09-11 11:46 | OP.PCM_ITS ---
Operative Report (Standard) Operative Information Date of Procedure: 09/11/25 Pre-Operative Diagnosis: Porcelain gallbladder Post-Operative Diagnosis: Same Surgery/Procedure Performed: Robotic assisted laparoscopic cholecystectomy custom feed corn operator: Yes Demonstrator Sewing Techniques: Nancy Hsu Tasks completed by dairy and food laboratory assistant: Opening & closing and Retracting Type of Anesthesia: General/Regional RN Documented Start/Stop Times: Operation Date: 09/11/25 09:45 Case Time Into Pre-Op 09/11/25 08:05 Out of Pre-Op 09/11/25 10:15 Anesthesia Start 09/11/25 10:22 Into Room 09/11/25 10:22 Procedure Start 09/11/25 10:56 Procedure Start Time: :56 Procedure Stop Time: 11:50 Select all DRAINS/GRAFTS/IMPLANTS that apply: None Estimated Blood Loss: 10 Specimen collected: Yes Description of specimen(s) removed: Gallbladder Description of surgery: Patient was brought back to the operating room and general anesthesia was induced. The abdomen was prepped and draped in the usual sterile fashion. A midline incision was made superior to the umbilicus and deepened to the fascia which was elevated and incised. A 12 mm port was placed into the abdomen. The abdomen was insufflated to 15 mmHg. Next under direct visualization two 8 mm ports were placed in the left upper quadrant and 1 legal port in the right upper quadrant. The robot was then docked. The gallbladder was grasped and elevated cephalad. The infundibulum was located and retracted laterally. ICG was used to localize the cystic duct. The area was dissected with hook cautery until the cystic duct and cystic artery were identified and dissected free. The cystic artery was triply ligated and divided. The cystic duct was triply clipped and divided as well. The gallbladder was then taken off of the gallbladder fossa using electrocautery. There was good hemostasis. The gallbladder was placed into an Endo Catch bag. The gallbladder was removed and the robot was undocked. The midline fascia was closed with an interrupted 0 Vicryl sutures. The abdomen was allowed to desufflate. The incisions were injected with local anesthetic and closed with interrupted 4-0 Monocryl sutures. Steri-Strips and bandages were applied and patient was awoken and taken to PACU in stable condition. Surgical Findings: Porcelain gallbladder Complications Complications: No Admit VTE Documentation VTE Mechan Device Prophylaxis: SCD's
--- NOTE | 2025-09-11 11:51 | DCINST_ITS ---
Discharge Instructions Procedure Gallbladder Diet Discharge Diet: Light diet - advance as tolerated Activity Discharge Activity: May Not Drive (for 2-3 days or while taking narcotic pain medications.) and - (Do not drive, work heavy equipment or sign legal documents for 24 hours.) May shower in (days): 1 Lifting Restrictions: 20 lbs for 2 weeks Additional Activity Instructions:: Pain medication may cause nausea. You should typically eat light foods as you take your pain medications. Pain medication may also cause constipation. If this is a problem for you, please discuss with your doctor. Alternate ibuprofen and Tylenol for pain control Dressing / Incision Call your doctor if your incision/area has: Continuous Slow Oozing, Sudden Increased Bleeding, Increased Pain/ Swelling, Increased Redness and Foul Smelling Discharge Call your doctor if you observe: Fever of 101 or Higher Suture Line Care: Avoid Pulling/Pushing and Avoid Pinching/Bending Remove Dressing in: 2 days Additional Dressing/Incision Instructions:: Leave operative bandaids on for 2 days. When you remove dressing, leave Steri-Strips on until your follow-up appointment, or until the Steri-Strips fall off on their own. Follow Up Care Please Follow Up With: Krystian Wei MD When: Please call to schedule 2 week follow up appointment. [phone] Test Results: Test results from this visit will be discussed in further detail at your follow- up appointment, if applicable. Discharge Plan Admission Attending Provider: Krystian Wei Primary Care Provider: Roland Johnson Instructions Print Language: Korean Discharge Orders/Prescriptions Prescriptions: No Action bethanechol chloride 25 mg tablet 25 mg PO TID guanfacine 3 mg tablet extended release 24 hr 3 mg PO QHS tamsulosin 0.4 mg capsule 0.4 mg PO QHS zaleplon 5 mg capsule 5 mg PO QHS Vraylar 6 mg capsule 6 mg PO QDAY gabapentin 400 MG capsule 400 mg PO TID lorazepam 1 MG tablet 1 mg PO BID lorazepam 0.5 MG tablet 0.5 mg PO 1600 loratadine [Allergy Relief (loratadine)] 10 MG tablet 10 mg PO DAILY polyethylene glycol 3350 [Miralax] 17 gram Powder In Packet 17 g PO DAILY acetaminophen 500 mg Tablet 500 mg PO TID naproxen 500 mg Tablet 500 mg PO BIDCM quetiapine 50 mg tablet 300 mg PO QHS Rx Instructions: TAKES 50 MG IN THE MORNING AND AFTERNOON, AND 100MG AT BEDTIME. carbamazepine 400 mg tablet extended release 12 hr 400 mg PO BID quetiapine 100 mg tablet 150 mg PO DAILY Rx Instructions: TAKES 50 MG IN THE MORNING AND AFTERNOON, AND 100MG AT BEDTIME. Referrals / Follow Up: Roland Johnson MD [Primary Care Provider, Medical] Disposition Disposition (needs filled in before D/C Order can be placed): Home, Self Care
--- NOTE | 2025-09-11 12:46 | PCM.POST.ANE ---
Anesthesia: Postop Eval I Current Vital Signs Temperature: 97.3 F Pulse Rate: 78 Blood Pressure: 129/88 Respiratory Rate: 16 Pulse Ox: 99 Oxygen Delivery Method: Room Air Assessment Airway patent: Yes Spontaneous unlabored respirations: Yes Mental status: Calm and Asleep nausea: No Vomiting: No Anesthesia Complication: No Fluid Hydration Crystalloid volume administer (ml): 500 Total IV fluid infused: 500 Progress Note Anesthesia document: Postop Eval 1 completed: Yes
--- NOTE | 2025-09-11 13:43 | POSTOPAN2_ITS ---
Anesthesia Postop Eval I Sum Postop Eval Completion status Anesthesia document: Postop Eval 1 completed: Yes Anesthesia Postop Eval I Summary Anesthesia Postop Eval I Summary: Anesthesia Postop Eval I: Assessment Summary Airway patent Yes 09/11/25 12:47 LIBRARY ACQUISITIONS [email or web address] Spontaneous unlabored Yes 09/11/25 12:47 LIBRARY ACQUISITIONS [email or web address] respirations Mental status Calm,Asleep 09/11/25 12:47 LIBRARY ACQUISITIONS [email or web address] nausea No 09/11/25 12:47 LIBRARY ACQUISITIONS [email or web address] Vomiting No 09/11/25 12:47 LIBRARY ACQUISITIONS [email or web address] Anesthesia Postop Eval I: Fluid Summary Crystalloid volume administer 500 09/11/25 12:47 LIBRARY ACQUISITIONS [email or web address] (ml) Colloids volume administered ( ml) Blood Product volume administered (ml) Total IV fluid infused 500 09/11/25 12:47 LIBRARY ACQUISITIONS [email or web address] Anesthesia Postop Eval I: Summary Notes Anesthesia Complication No 09/11/25 12:47 LIBRARY ACQUISITIONS [email or web address] Anesthesia Complication Comment: Post-operative progress note Anesthesia: Postop Eval II Evaluation Mental status: Awake Pain Level: 0 nausea: No Vomiting: No Complications Anesthesia Complication: No
--- NOTE | 2025-09-11 13:43 | PCM.POSTANE2 ---
Anesthesia Postop Eval I Sum Postop Eval Completion status Anesthesia document: Postop Eval 1 completed: Yes Anesthesia Postop Eval I Summary Anesthesia Postop Eval I Summary: Anesthesia Postop Eval I: Assessment Summary Airway patent Yes 09/11/25 12:47 [email or web address] Spontaneous unlabored Yes 09/11/25 12:47 [email or web address] respirations Mental status Calm,Asleep 09/11/25 12:47 [email or web address] nausea No 09/11/25 12:47 [email or web address] Vomiting No 09/11/25 12:47 [email or web address] Anesthesia Postop Eval I: Fluid Summary Crystalloid volume administer 500 09/11/25 12:47 [email or web address] (ml) Colloids volume administered ( ml) Blood Product volume administered (ml) Total IV fluid infused 500 09/11/25 12:47 [email or web address] Anesthesia Postop Eval I: Summary Notes Anesthesia Complication No 09/11/25 12:47 [email or web address] Anesthesia Complication Comment: Post-operative progress note Anesthesia: Postop Eval II Evaluation Mental status: Awake Pain Level: 0 nausea: No Vomiting: No Complications Anesthesia Complication: No
== END 2025-09-11 13:41 | disposition home or self-care (01) ==
LOC: SDC 08:04 → AC 08:05
PROVIDERS: PCP Family Medicine; Referring Provider Surgery; Visit Provider Surgery
PROC: 0FT44ZZ Resection of Gallbladder, Percutaneous Endoscopic Approach (ICD-10-PCS; CPT 47562; principal; 2025-09-11 09:25)
DX: K80.10 Calculus of gallbladder with chronic cholecystitis without obstruction (principal); K82.A1 Gangrene of gallbladder in cholecystitis; K21.9 Gastro-esophageal reflux disease without esophagitis; F63.9 Impulse disorder, unspecified; Z79.899 Other long term (current) drug therapy
CPT/HCPCS: 47562; S2900; 00790; 88304; 88311; 93005; A4216; J0525; J2405

== ENCOUNTER 2025-10-11 15:18 | Emergency (ER) | payer MEDICARE, MEDICAID, SELFPAY ==
[2025-10-11 15:19] VITALS: PULSE 100; RESP 18; TEMP 36.1; O2SAT 99
--- NOTE | 2025-10-11 16:31 | EX.ED.DYSGE1 ---
HPI History of Present Illness Chief Complaint: Complaint [facility] Medical History Lives in care home Anxiety Bacteriuria Kyphoscoliosis Impulse control disorder Bladder disease Restless legs Non-smoker Profound mental handicap Seizures Blind Home Medications ?Medication ?Instructions ?Recorded ?Last Taken ?Type gabapentin 400 mg capsule 400 mg PO TID 11/18/14 09/11/25 History lorazepam 1 mg tablet 1 mg PO BID 11/18/14 09/11/25 History loratadine 10 mg tablet (Allergy 10 mg PO DAILY 02/05/18 Unknown History Relief (loratadine)) lorazepam 0.5 mg tablet 0.5 mg PO 1600 02/05/18 09/10/25 History acetaminophen 500 mg tablet 500 mg PO TID 01/09/23 09/11/25 History naproxen 500 mg tablet 500 mg PO BIDCM 01/09/23 Unknown History polyethylene glycol 3350 17 gram 17 g PO DAILY 01/09/23 09/10/25 History oral powder packet (Miralax) quetiapine 50 mg tablet 300 mg PO QHS 10/09/23 09/10/25 History carbamazepine 400 mg 400 mg PO BID 04/19/24 09/11/25 History tablet,extended release,12 hr quetiapine 100 mg tablet 150 mg PO DAILY 04/19/24 09/11/25 History bethanechol chloride 25 mg tablet 25 mg PO TID 08/17/25 09/11/25 History cariprazine 6 mg capsule (Vraylar) 6 mg PO QDAY 08/17/25 09/11/25 History guanfacine 3 mg tablet,extended 3 mg PO QHS 08/17/25 09/10/25 History release 24 hr tamsulosin 0.4 mg capsule 0.4 mg PO QHS 08/17/25 09/10/25 History zaleplon 5 mg capsule 5 mg PO QHS 08/17/25 09/10/25 History Allergy/AdvReac Type Severity Reaction Status Date / Time No Known Allergies Allergy Verified 10/11/25 15:23 Family History no significant family his Surgical History S/P cholecystectomy History of hysterectomy History of surgery Social History household members: other details: senior care Smoking Status: Never smoker alcohol intake: never substance use type: does not use EXAM Physical Exam Const Vital Signs: 10/11/25 15:19 10/11/25 17:00 Temperature 97 F L Temperature Source Temporal Pulse Rate 100 Respiratory Rate 18 Blood Pressure 106/70 Blood Pressure Mean 82 Pulse Ox 99 Oxygen Delivery Method Room Air [facility] [place] Narrative Medical decision making narrative: HISTORY OF PRESENT ILLNESS: Chief complaint: Concern for UTI 40-year-old female presents concern for UTI. Patient is nonverbal to care home member. She is accompanied by her care home staff member. senior care staff member notes decreased urination today. senior care staff member notes increased behavioral abnormalities which can sometimes be insurance account representative of UTI. REVIEW OF SYSTEMS: Pertinent positives: Dysuria Pertinent negatives: Vomiting, fever PHYSICAL EXAM: Nursing triage notes reviewed, Vital signs reviewed Constitutional: please see mdm Lungs: Clear to auscultation, No wheezing or rales. No increased work of breathing, no conversational dyspnea, no accessory muscle use, no nasal flaring. No respiratory distress noted Heart: Regular rate and rhythm, No murmurs, No rubs and No gallops, 2+ distal pulses (radial, femoral, posterior tibial) in all extremities Abdomen: Soft, there is no suprapubic fullness, no tenderness, rigidity, rebound or guarding, no obvious peritoneal signs, no palpable pulsatile abdominal masses, no auscultated abdominal bruit : No CVAT Extremities: No edema MEDICAL DECISION MAKING: Chief Complaint: please see HPI External records reviewed: Reviewed prior ED visit from January 2025. Patient was diagnosed with urinary tension at that time. A Heaton catheter was placed with removing 100 cc of fluid. Factors affecting care: history of seizures Social determinants of health: none History obtained from others: none Consults: none [facility] Narrative: Patient was initially hemodynamically stable, afebrile and nontoxic. Exam benign. No appreciable CVA tenderness. Abdomen soft. No apparent suprapubic fullness. I considered the following differential diagnosis: UTI, pyelonephritis I obtained bladder scan to further determine if the patient was suffering from a life-threatening etiology. Of note as nursing went evaluate the patient and noted patient had soiled 3 layers of depends. This suggest she does not suffer from urinary retention. Postvoid residual volumes 26 cc further suggesting no urinary retention ALL IMAGES (IF OBTAINED) HAVE BEEN PERSONALLY REVIEWED AND INTERPRETED BY MYSELF. Urinalysis showed no signs of infection No pathology was identified associated the patient's chief complaint including urinary tension or UTI. Patient supported for discharge home. The patient and/or family, caregivers express understanding. The patient and/or family, caregivers agrees with the plan. Shared decision making: I will have a discussion with the patient and or visitors regarding risk/benefits of further testing or admission. They will be made aware of of the risk/benefits inherent in this decision they will be given the opportunity to voice understanding. Total critical care time today provided was at least 0 minutes. This excludes separately billable procedures. Critical care time (if documented) is secondary to the patient having high probability of clinically significant/life threatening deterioration in the patient's condition which required my urgent intervention. Impression: 1. Dysuria 2. Chronic incontinence Dispo: Discharge home This note was generated with Glam .fr [place] dictation software. It may contain incorrect words, spelling, and punctuation that were not noted in review of the chart prior to signing. Lab Data Labs: Laboratory Results - last 24 hr 10/11/25 18:10 Urine Color Straw Urine Clarity Sl. Cloudy Urine pH 7.0 Ur Specific [place] 1.015 Urine Protein Negative Urine Glucose (UA) Normal Urine Ketones Negative Urine Occult Blood Negative Urine Nitrite Negative Urine Bilirubin Negative Urine Urobilinogen Normal Ur Leukocyte Esterase Negative Discharge Plan Triage Chief Complaint: Complaint ED Provider: Sy Hurley Dx/Rx/DC Orders Instructions: ED Urinary Incontinence Female Prescriptions: No Action bethanechol chloride 25 mg tablet 25 mg PO TID guanfacine 3 mg tablet extended release 24 hr 3 mg PO QHS tamsulosin 0.4 mg capsule 0.4 mg PO QHS zaleplon 5 mg capsule 5 mg PO QHS Vraylar 6 mg capsule 6 mg PO QDAY gabapentin 400 MG capsule 400 mg PO TID lorazepam 1 MG tablet 1 mg PO BID lorazepam 0.5 MG tablet 0.5 mg PO 1600 loratadine [Allergy Relief (loratadine)] 10 MG tablet 10 mg PO DAILY polyethylene glycol 3350 [Miralax] 17 gram Powder In Packet 17 g PO DAILY acetaminophen 500 mg Tablet 500 mg PO TID naproxen 500 mg Tablet 500 mg PO BIDCM quetiapine 50 mg tablet 300 mg PO QHS Rx Instructions: TAKES 50 MG IN THE MORNING AND AFTERNOON, AND 100MG AT BEDTIME. carbamazepine 400 mg tablet extended release 12 hr 400 mg PO BID quetiapine 100 mg tablet 150 mg PO DAILY Rx Instructions: TAKES 50 MG IN THE MORNING AND AFTERNOON, AND 100MG AT BEDTIME. Primary Care Provider: Roland Johnson Referrals: Ilan Lynch MD [Med Staff - Active Staff, Urology] Activity Restrictions/Additional Instructions: Thank you for trusting us with your care today! Your urinalysis showed no sign of urinary tract infection. Please take Tylenol (2 pills, 650 mg), ibuprofen (2 pills, 400 mg) every 6 hours as needed for pain and fever control. Please return to the emergency department if your symptoms change or worsen. Please follow with Urology for further outpatient evaluation and management. Print Language: [place] Disposition Disposition: Home, Self Care
[2025-10-11 17:00] VITALS: BP 106/70
[2025-10-11 17:18] VITALS: BMI 26.3
--- NOTE | 2025-10-11 17:31 | ED.RN ---
Legal guardian called and permission obtained to treat.
--- NOTE | 2025-10-11 17:31 | ED.RN ---
Per caregiver- Pt is having urinary retention and has not voided today. This RN witnessed Pt voiding enough to soak through 3 pairs of attends and pajama bottoms.
[2025-10-11 18:13] LABS: Mucous, Urine 0 SEEN /hpf (<or=2+)
[2025-10-11 19:24] LABS: Color, Urine Straw (Yellow); Glucose, Dipstick Normal (Normal); Ketone-Dipstick Negative (Negative); Leukocyte Esterase-Dipstick Negative /ul (Negative); Nitrite-Dipstick Negative (Negative); Occult Blood-Urine Negative /ul (Negative); Protein-Dipstick Negative (Negative); Specific Gravity, Urine 1.015 (1.002-1.030); Urine Bilirubin Dipstick Negative (Negative)
[2025-10-11 19:42] LABS: Red Blood Cells-Urine 0-5 SEEN /hpf (0-5); Squamous Epithelial Cells - UA 5-10 SEEN /hpf (5-10)
[2025-10-11 19:51] VITALS: BP 106/70; PULSE 79; RESP 16; TEMP 36.6; O2SAT 100
== END 2025-10-11 20:09 | disposition home or self-care (01) ==
PROVIDERS: Emergency Provider Emergency Medicine; PCP Family Medicine; Visit Provider Emergency Medicine
DX: R30.0 Dysuria (principal); R32 Unspecified urinary incontinence
CPT/HCPCS: 81001; 96372; 99283; P9612